=== PATIENT | female | born 1975 | race American Indian/Alaskan Native ===

== ENCOUNTER 2016-10-23 17:25 | Inpatient (IN) | payer MEDICARE, MEDICAID ==
[2016-10-23] MEDS ORDERED: Piperacillin/Tazobactam 3.375 GM in Sodium Chloride 0.9% 100 ML IV SCH (18:45)
[2016-10-23] MEDS ORDERED: Promethazine 25 MG/ML SDV IM PRN (18:47)
[2016-10-23] MEDS ORDERED: Polyethylene Glycol 3350 Powder 17 GM Packet PO PRN (18:47)
[2016-10-23] MEDS ORDERED: Acetaminophen 325 MG Tab PO PRN (18:47)
[2016-10-23] MEDS ORDERED: Ondansetron 4 MG/2 ML SDV IVPUSH PRN (18:47)
[2016-10-23] MEDS ORDERED: Zolpidem 5 MG Tab PO PRN (18:47)
--- NOTE | 2016-10-23 19:06 | PCM.HP ---
H&P History of Present Illness - General Date of Service: 10/23/16 Admit Problem/Dx: Admission Diagnosis/Problem Admission Diagnosis/Problem Infection of skin Source of Information: Patient History Limitations: Reports: No limitations - History of Present Illness Initial Comments - Free Text/Narative: 41-year-old female with radical history of end-stage renal disease on they'll assist, diabetes mellitus type 1, standing hyperparathyroidism, hypertension, hepatitis C presented from the clinic for periorbital infection started 7 days ago and getting worse despite starting Keflex and Bactrim 2 days ago. Patient admits having chills but denies fever, nausea, vomiting, chest pain, shortness breath, diarrhea, or any other symptoms. Patient stated that 7 days ago, she felt a bump on her left lower eye lid and thinks it is a style - next day she had similar symptoms in the right eye and started having bilateral pus drainage This is the first time to have such symptoms and to address them. She has a remote history of skin MRSA. patient denies change in her vision or eyeball pain. She had hemodialysis done today. She had blood work done today at all to clinic. Her WBC was 9.10. hemoglobin 10.6. Patient has history of chronic anemia - Related Data Allergies/Adverse Reactions: Allergies Allergy/AdvReac Type Severity Reaction Status Date / Time codeine Allergy Mild Stomach Uncoded 10/23/16 18:23 Upset Home Medications: Home Meds Calcium Acetate [Phoslo] 3 cap PO TIDM 12/01/13 [History] LORazepam [Ativan] 0.5 mg PO BID PRN 12/01/13 [History] Ca Cmb No.1/Vit D3/B-6/FA/B12 [Vitamin D3 1,000 Unit] 1,000 unit PO DAILY [History] Calcium Carbonate [Calcium] 1,000 mg PO ACDIN 05/02/14 [History] Carvedilol 12.5 mg PO DAILY 05/02/14 [History] Gabapentin [Neurontin] 300 mg PO DAILY 05/02/14 [History] Insulin Glarg,Human.Rec.Analog [Lantus] 3 units SUBCUT BEDTIME 05/02/14 [History ] Sertraline [Zoloft] 100 mg PO BEDTIME 05/02/14 [History] amLODIPine [Norvasc] 5 mg PO DAILY 05/02/14 [History] hydrOXYzine HCl [Atarax] 25 mg PO TID PRN 05/02/14 [History] oxyCODONE HCl [Oxycodone HCl] 10 mg PO Q6HR PRN 05/02/14 [History] Insulin Lispro [HumaLOG] 1 unit SQ TIDAC 08/21/15 [History] Pantoprazole [Protonix] 40 mg PO DAILY 08/21/15 [History] Sodium Polystyrene Sulfonate [Kayexalate] 30 ml PO ASDIRECTED PRN 08/21/15 [ History] Past Medical History Cardiovascular History: Reports: High cholesterol, Hypertension Gastrointestinal History: Reports: Other (see below) Other Gastrointestinal History: Hx C.diff in 2015 Genitourinary History: Reports: Dialysis Musculoskeletal History: Reports: Amputation Other Musculoskeletal History: Amputation below right elbow, and below left knee. Psychiatric History: Reports: Anxiety Endocrine/Metabolic History: Reports: Diabetes, type II Hematologic History: Reports: Anemia - Infectious Disease History Infectious Disease History: Reports: C-difficile - Past Surgical History HEENT Surgical History: Reports: Eye surgery GI Surgical History: Reports: Cholecystectomy Musculoskeletal Surgical History: Reports: Amputation Social & Family History - Family History Family Medical History: Noncontributory HEENT: Reports: Cataract Cardiac: Reports: High cholesterol, Hypertension, MD Respiratory: Reports: Asthma GI: Reports: GERD : Reports: Dialysis, Renal disease/insufficiency Neurological: Reports: Seizure Endocrine/Metabolic: Reports: Diabetes, type I, Diabetes, type II - Tobacco Use Smoking Status *Q: Former Smoker Years of Tobacco use: 6 Packs/Tins Daily: 3 Second Hand Smoke Exposure: No - Caffeine Use Caffeine Use: Reports: Coffee, Energy drinks, Soda, Tea - Alcohol Use Days Per Week of Alcohol Use: 0 - Recreational Drug Use Recreational Drug Use: No - Living Situation & Occupation Living situation: Reports: single, with family Occupation: disabled H&P Review of Systems - Review of Systems: Review Of Systems: See Below Free Text/Narrative: 10 point review of systems is otherwise negative except as mentioned above Exam - Exam Exam: See Below - Vital Signs Weight: 81.647 kg - Exam General: alert, oriented, cooperative. No: mild distress, moderate distress, severe distress, sedated, lethargic, obtunded HEENT: EOMI, Mucosa moist & pink, Nares patent, Normal nasal septum, Posterior pharynx clear, Pupils equal, Pupils reactive, TMs clear, Other (patient has some periorbital swelling bilaterally. There is plus on the left lower eyelid), PERRLA Neck: supple, trachea midline Lungs: Clear to auscultation, Normal respiratory effort Cardiovascular: regular rate, regular rhythm Abdomen: normal bowel sounds, soft. No: peritoneal signs (Female) Exam: Deferred Rectal (Female) Exam: Deferred Back Exam: normal inspection, full range of motion Extremities: other (she has amputated extremities). No: clubbing, cyanosis, calf tenderness Skin: warm, dry Neurological: cranial nerves intact, reflexes equal bilateral Neuro Extensive - Mental Status: alert, oriented x3, normal mood/affect Neuro Extensive - Motor, Sensory, Reflexes: CN II-XII intact, normal gait, normal reflexes Psychiatric: alert, normal affect, normal mood *Q Meaningful Use (ADM) - VTE *Q VTE Criteria *Q: - Stroke *Q Stroke Criteria *Q: - AMI *Q AMI Criteria *Q: - Problem List (1) Facial infection SNOMED Code(s): 258385635 ICD Code: L08.9 - LOCAL INFECTION OF THE SKIN AND SUBCUTANEOUS TISSUE, UNSP Status: Acute Current Visit: Yes (2) End stage renal failure on dialysis SNOMED Code(s): 341025439 ICD Code: N18.6 - END STAGE RENAL DISEASE; Z99.2 - DEPENDENCE ON RENAL DIALYSIS Status: Acute Current Visit: No Problem List Initiated/Reviewed/Updated: Yes Orders Last 24hrs: Active Orders 24 hr Category Date Time Status Patient Status [ADT] Routine ADT 10/23/16 18:47 Ordered Height and Weight [RC] DAILY Care 10/23/16 18:47 Ordered Intake and Output [RC] QSHIFT Care 10/23/16 18:52 Ordered Oxygen Therapy [RC] PRN Care 10/23/16 18:47 Ordered Peripheral IV Care [RC] . DIRECTED Care 10/23/16 18:54 Ordered Up ad Katerin [RC] ASDIRECTED Care 10/23/16 18:47 Ordered VTE/DVT Education [RC] PER UNIT ROUTINE Care 10/23/16 18:47 Ordered Vital Signs [RC] Q4H Care 10/23/16 18:47 Ordered Consult to Pharmacy [CONS] Routine Cons 10/23/16 18:42 Active Consistent Carbohydrate Diet [DIET] Diet 10/23/16 Breakfast Ordered Fluid Restriction [DIET] Diet 10/23/16 Breakfast Ordered Sodium Restricted Diet [DIET] Diet 10/23/16 Breakfast Ordered Acetaminophen [Tylenol] Med 10/23/16 18:47 Ordered 650 mg PO Q4H PRN Acetaminophen/HYDROcodone [[place] 325-10 MG] Med 10/23/16 18:47 Ordered 1 tab PO Q4H PRN Heparin Sodium Med 10/23/16 22:00 Ordered 5,000 units SUBCUT Q8HR Morphine Med 10/23/16 18:47 Ordered 1 mg IVPUSH Q2H PRN Ondansetron [Zofran] Med 10/23/16 18:47 Ordered 4 mg IVPUSH Q4H PRN Piperacillin/Tazobactam [Zosyn] 3.375 gm Med 10/23/16 18:45 Ordered Sodium Chloride 0.9% [Normal Saline] 100 ml IV Q8H Polyethylene Glycol 3350 [MiraLAX] Med 10/23/16 18:47 Ordered 17 gm PO DAILY PRN Promethazine [Phenergan] Med 10/23/16 18:47 Ordered 6.25 mg IM Q6H PRN Sodium Chloride 0.9% [Saline Flush] Med 10/23/16 18:47 Ordered 10 ml FLUSH ASDIRECTED PRN Vancomycin [Vancocin] 1 gm Med 10/23/16 18:42 Ordered Sodium Chloride 0.9% [Normal Saline] 250 ml IV ONETIME Zolpidem [Ambien] Med 10/23/16 18:47 Ordered 5 mg PO BEDTIME PRN Peripheral IV Insertion Adult [OM.PC] Routine Oth 10/23/16 18:47 Ordered Saline Lock Insert [OM.PC] Routine Oth 10/23/16 18:47 Ordered Resuscitation Status Routine Resus Stat 10/23/16 18:47 Ordered Medication Orders Piperacillin Sod/Tazobactam (Sod 3.375 gm/ Sodium Chloride) 100 mls @ 200 mls/ hr IV Q8H EH Vancomycin HCl 1 gm/ Sodium (Chloride) 250 mls @ 167 mls/hr IV ONETIME ONE Stop: 10/23/16 20:11 Assessment/Plan Comment:: periorbital infection Patient failed outpatient oral antibiotic Gram stain with culture was obtained in the clinic. The Gram stain showed staph aureus We'll start him on question to cover possible MRSA end dosing to cover other possible bacteria is End-stage renal disease on hemodialysis She had hemodialysis done today. She is due for hemodialysis on next Thursday Diabetes mellitus type 1 home insulin Sliding scale insulin hypertension Home medications to be restarted
[2016-10-23] MEDS ORDERED: Sodium Polystyrene Sulfonate 15 GM/60 ML Susp 60 ML Bot PO PRN (19:12)
[2016-10-23] MEDS ORDERED: hydrOXYzine HCl 25 MG Tab PO PRN (19:12)
[2016-10-23] MEDS ORDERED: Non-Formulary Medication 1 Each (Calcium Carbonate [Calcium] 1,000 MG) PO SCH (19:15)
[2016-10-23] MEDS: Morphine 2 MG/ML Syringe IVPUSH PRN (20:43)
[2016-10-23] MEDS: Sodium Chloride 0.9% 10 ML Syringe FLUSH PRN (20:43)
[2016-10-23] MEDS ORDERED: INSULIN GLARGINE SUBCUT SCH (21:00)
[2016-10-23] MEDS ORDERED: [UNRECOGNIZED DRUG - OTHER] SUBCUT SCH (21:00)
[2016-10-23] MEDS ORDERED: Insulin Aspart 100 Units/ML 3 ML Pen SUBCUT SCH (21:00)
[2016-10-23] MEDS ORDERED: amLODIPine 5 MG Tab PO SCH (21:00)
[2016-10-23] MEDS: Sertraline 50 MG Tab PO SCH (21:36)
[2016-10-23] MEDS: Carvedilol 6.25 MG Tab PO SCH (21:37)
[2016-10-23] MEDS: Gabapentin 300 MG Cap PO SCH (21:38)
[2016-10-23] MEDS: Insulin Detemir 100 Units/ML 3 ML Pen SUBCUT SCH (21:42)
[2016-10-23] MEDS: Insulin Aspart 100 Units/ML 3 ML Pen SUBCUT SCH (21:44)
[2016-10-23] MEDS: Heparin Sodium 5,000 Units/ML Vial SUBCUT SCH (21:45)
[2016-10-23] MEDS: oxyCODONE 5 MG Tab PO PRN (22:11)
[2016-10-23] MEDS: LORazepam 0.5 MG Tab PO PRN (22:12)
[2016-10-24] MEDS: Piperacillin/Tazobactam 2.25 GM in Sodium Chloride 0.9% 50 ML IV SCH ×2 (00:03→08:31)
[2016-10-24] MEDS: Morphine 2 MG/ML Syringe IVPUSH PRN ×5 (00:04→14:16)
[2016-10-24] MEDS: Heparin Sodium 5,000 Units/ML Vial SUBCUT SCH ×3 (06:10→21:59)
[2016-10-24] MEDS: Pantoprazole 40 MG Tab.CR PO SCH (06:10)
[2016-10-24] MEDS ORDERED: INSULIN LISPRO 1 UNIT SQ SCH (08:00)
[2016-10-24] MEDS: Insulin Aspart 100 Units/ML 3 ML Pen SUBCUT SCH ×4 (08:06→22:04)
[2016-10-24] MEDS: Calcium Carbonate 500 MG Tab.Chew PO SCH ×3 (08:30→17:12)
[2016-10-24] MEDS ORDERED: Sodium Polystyrene Sulfonate 15 GM/60 ML Susp 60 ML Bot PO PRN (08:31)
[2016-10-24] MEDS ORDERED: amLODIPine 5 MG Tab PO SCH ×3 (09:00→09:36)
[2016-10-24] MEDS ORDERED: Gabapentin 300 MG Cap PO SCH (09:00)
[2016-10-24] MEDS ORDERED: [UNRECOGNIZED DRUG - REMARK] PO SCH (09:00)
[2016-10-24] MEDS ORDERED: cloNIDine 0.1 MG Tab PO ONE (09:36)
--- NOTE | 2016-10-24 10:28 | PCM.PN ---
- General Info Date of Service: 10/24/16 Admission Dx/Problem (Free Text): Admission Diagnosis/Problem Admission Diagnosis/Problem Infection of skin Subjective Update: patient states that the pressure pain between her eyes improved. She is still having lots of drainage mostly on left side eye this morning. she denies change in vision, eyeball pain, fever, chills, nausea, vomiting, chest pain, shortness breath, abdominal pain, diarrhea, urinary symptoms, or any other symptoms. - Patient Data Vitals - most recent: Last Vital Signs Temp 36.0 C 10/24/16 07:00 Pulse 65 10/24/16 07:00 Resp 18 10/24/16 07:00 BP 128/63 10/24/16 07:00 Pulse Ox 100 10/24/16 07:00 Weight - most recent: 84.368 kg I&O - last 24 hours: Intake & Output 10/23/16 10/24/16 10/24/16 22:59 06:59 14:59 Intake Total 100 440 Balance 100 440 Lab Results last 24 hrs: Laboratory Results - last 24 hr 10/23/16 10/23/16 10/24/16 Range/Units 19:06 21:09 06:00 WBC 6.3 (5.0-10.0) 10^3/uL RBC 3.12 L (4.2-5.4) 10^6/uL Hgb 9.7 L (12.0-16.0) g/dL Hct 31.8 L (37.0-47.0) % MCV 101.9 H (80-100) fL MCH 31.1 (27.0-34.0) pg MCHC 30.5 L (33.0-35.0) g/dL Plt Count 223 (150-450) 10^3/uL Neut % (Auto) 84.8 H (42.2-75.2) % Lymph % (Auto) 7.3 L (20.5-50.1) % Bryan % (Auto) 5.6 (2-8) % Eos % (Auto) 1.8 (1.0-3.0) % Baso % (Auto) 0.5 (0.0-1.0) % POC Glucose 191 H 190 H (70-105) mg/dl 10/24/16 Range/Units 07:20 WBC (5.0-10.0) 10^3/uL RBC (4.2-5.4) 10^6/uL Hgb (12.0-16.0) g/dL Hct (37.0-47.0) % MCV (80-100) fL MCH (27.0-34.0) pg MCHC (33.0-35.0) g/dL Plt Count (150-450) 10^3/uL Neut % (Auto) (42.2-75.2) % Lymph % (Auto) (20.5-50.1) % Bryan % (Auto) (2-8) % Eos % (Auto) (1.0-3.0) % Baso % (Auto) (0.0-1.0) % POC Glucose 118 H (70-105) mg/dl Med Orders - Current: Current Medications Acetaminophen (Tylenol) 650 mg PO Q4H PRN PRN Reason: Pain (Mild 1-3)/fever Hydrocodone Bitart/Acetaminophen ([place] 325-10 Mg) 1 tab PO Q4H PRN PRN Reason: Pain (moderate 4-6) Amlodipine Besylate (Norvasc) 10 mg PO BEDTIME [facility] Calcium Carbonate/Glycine (Tums) 1,000 mg PO TIDMEALS [facility] Last Admin: 10/24/16 08:30 Dose: 1,000 mg Carvedilol (Coreg) 12.5 mg PO BEDTIME [facility] Last Admin: 10/23/16 21:37 Dose: 12.5 mg Gabapentin (Neurontin) 300 mg PO BEDTIME [facility] Last Admin: 10/23/16 21:38 Dose: 300 mg Heparin Sodium (Porcine) (Heparin Sodium) 5,000 units SUBCUT Q8HR [facility] Last Admin: 10/24/16 06:10 Dose: 5,000 units Hydroxyzine HCl (Atarax) 25 mg PO TID PRN PRN Reason: Anxiety Piperacillin Sod/Tazobactam (Sod 2.25 gm/ Sodium Chloride) 50 mls @ 100 mls/hr IV Q8H [facility] Last Admin: 10/24/16 08:31 Dose: 100 mls/hr Insulin Aspart (Novolog) 0 unit SUBCUT QIDACANDBED [facility] PRN Reason: Protocol Last Admin: 10/24/16 08:06 Dose: Not Given Insulin Detemir (Levemir) 0 unit SUBCUT BEDTIME [facility] Last Admin: 10/23/16 21:42 Dose: 3 units Lorazepam (Ativan) 0.5 mg PO BID PRN PRN Reason: Anxiety Last Admin: 10/23/16 22:12 Dose: 0.5 mg Morphine Sulfate (Morphine) 1 mg IVPUSH Q2H PRN PRN Reason: Pain (severe 7-10) Last Admin: 10/24/16 08:31 Dose: 1 mg Non-Formulary Medication (Ca Cmb No.1/Vit D3/B-6/Fa/B12 [Vitamin D3 1,000 Unit] ) 1,000 unit PO DAILY [facility] Non-Formulary Medication (Calcium Acetate [Phoslo]) 3 cap PO TIDM [facility] Ondansetron HCl (Zofran) 4 mg IVPUSH Q4H PRN PRN Reason: Nausea/Vomiting Last Admin: 10/23/16 20:43 Dose: 4 mg Oxycodone HCl (Oxycodone) 10 mg PO Q6HR PRN PRN Reason: Pain Last Admin: 10/23/16 22:11 Dose: 10 mg Pantoprazole Sodium (Protonix) 40 mg PO ACBREAKFAST [facility] Last Admin: 10/24/16 06:10 Dose: 40 mg Polyethylene Glycol (Miralax) 17 gm PO DAILY PRN PRN Reason: Constipation Promethazine HCl (Phenergan) 6.25 mg IM Q6H PRN PRN Reason: Nausea/Vomiting Sertraline HCl (Zoloft) 100 mg PO BEDTIME [facility] Last Admin: 10/23/16 21:36 Dose: 100 mg Sodium Chloride (Saline Flush) 10 ml FLUSH ASDIRECTED PRN PRN Reason: Keep Vein Open Last Admin: 10/23/16 20:43 Dose: 10 ml Sodium Polystyrene Sulfonate (Kayexalate) 15 gm PO ASDIRECTED PRN PRN Reason: elevated potassium more than 6 Zolpidem Tartrate (Ambien) 5 mg PO BEDTIME PRN PRN Reason: Sleep Discontinued Medications Amlodipine Besylate (Norvasc) 5 mg PO DAILY [facility] Amlodipine Besylate (Norvasc) 5 mg PO BEDTIME [facility] Last Admin: 10/23/16 21:39 Dose: 5 mg Amlodipine Besylate (Norvasc) 5 mg PO DAILY [facility] Clonidine HCl (Catapres) 0.1 mg PO ONETIME ONE Stop: 10/24/16 09:37 Gabapentin (Neurontin) 300 mg PO DAILY [facility] Vancomycin HCl 1 gm/ Sodium (Chloride) 250 mls @ 167 mls/hr IV ONETIME ONE Stop: 10/23/16 21:29 Last Admin: 10/23/16 20:51 Dose: 75 mls/hr Insulin Aspart (Novolog) 1 unit SUBCUT QIDACANDBED [facility] PRN Reason: Protocol Non-Formulary Medication (Calcium Carbonate [Calcium]) 1,000 mg PO ACDIN [facility] Last Admin: 10/24/16 04:17 Dose: Not Given Non-Formulary Medication (Insulin Glarg,Human.Rec.Analog) 3 units SUBCUT BEDTIME [facility] Non-Formulary Medication (Insulin Lispro [Humalog]) 1 unit SQ TIDAC [facility] Sodium Polystyrene Sulfonate (Kayexalate) gm PO ASDIRECTED PRN PRN Reason: elevated potassium - Exam General: alert, oriented, cooperative. No: no acute distress, sedated, lethargic, obtunded HEENT: Pupils equal, Pupils reactive, EOMI, Mucous membr. moist/pink, Other ( still having eyelid swelling and pus bilaterally. She has mild periorbital swelling bilaterally which slightly improved from yesterday) Neck: supple, trachea midline, no JVD Lungs: Clear to auscultation, Normal respiratory effort Cardiovascular: Regular Rate, Regular Rhythm Abdomen: bowel sounds present, soft, no tenderness, no distension Extremities: no edema, normal pulses Psy/Mental Status: alert, normal affect, normal mood - Problem List & Annotations (1) Facial infection SNOMED Code(s): 111116964 Code(s): L08.9 - LOCAL INFECTION OF THE SKIN AND SUBCUTANEOUS TISSUE, UNSP Status: Acute Current Visit: Yes (2) End stage renal failure on dialysis SNOMED Code(s): 522974342 Code(s): N18.6 - END STAGE RENAL DISEASE; Z99.2 - DEPENDENCE ON RENAL DIALYSIS Status: Acute Current Visit: No - Problem List Review Problem List Initiated/Reviewed/Updated: Yes - My Orders Last 24 Hours: My Active Orders 10/23/16 18:42 Consult to Pharmacy [CONS] Routine 10/23/16 18:47 Patient Status [ADT] Routine Height and Weight [RC] DAILY Oxygen Therapy [RC] PRN Up ad Katerin [RC] ASDIRECTED VTE/DVT Education [RC] PER UNIT ROUTINE Vital Signs [RC] 07,11,15,19,23,03 Acetaminophen [Tylenol] 650 mg PO Q4H PRN Acetaminophen/HYDROcodone [[place] 325-10 MG] 1 tab PO Q4H PRN Morphine 1 mg IVPUSH Q2H PRN Ondansetron [Zofran] 4 mg IVPUSH Q4H PRN Polyethylene Glycol 3350 [MiraLAX] 17 gm PO DAILY PRN Promethazine [Phenergan] 6.25 mg IM Q6H PRN Sodium Chloride 0.9% [Saline Flush] 10 ml FLUSH ASDIRECTED PRN Zolpidem [Ambien] 5 mg PO BEDTIME PRN Peripheral IV Insertion Adult [OM.PC] Routine Saline Lock Insert [OM.PC] Routine Resuscitation Status Routine 10/23/16 18:52 Intake and Output [RC] QSHIFT 10/23/16 18:54 Peripheral IV Care [RC] 10/23/16 19:12 LORazepam [Ativan] 0.5 mg PO BID PRN hydrOXYzine HCl [Atarax] 25 mg PO TID PRN oxyCODONE 10 mg PO Q6HR PRN 10/23/16 19:13 Blood Glucose Check, Bedside [RC] QIDACANDBED 10/23/16 19:15 Calcium Acetate [Phoslo] 3 cap PO TIDM 10/23/16 21:00 Carvedilol [Coreg] 12.5 mg PO BEDTIME Gabapentin [Neurontin] 300 mg PO BEDTIME Insulin Aspart [NovoLOG] See Protocol SUBCUT QIDACANDBED Insulin Detemir [Levemir] 0 unit SUBCUT BEDTIME Sertraline [Zoloft] 100 mg PO BEDTIME 10/23/16 22:00 Heparin Sodium 5,000 units SUBCUT Q8HR 10/24/16 00:00 Piperacillin/Tazobactam [Zosyn] 2.25 gm Sodium Chloride 0.9% [Normal Saline] 50 ml IV Q8H 10/24/16 06:00 Pantoprazole [ProTONIX] 40 mg PO ACBREAKFAST 10/24/16 08:00 Calcium Carbonate [Tums] 1,000 mg PO TIDMEALS 10/24/16 08:31 Sodium Polystyrene Sulfonate [Kayexalate] 15 gm PO ASDIRECTED PRN 10/24/16 09:00 Ca Cmb No.1/Vit D3/B-6/FA/B12 [Vitamin D3 1,000 Unit] 1,000 unit PO DAILY 10/24/16 09:36 amLODIPine [Norvasc] 10 mg PO BEDTIME 10/25/16 05:11 BASIC METABOLIC PANEL,BMP [CHEM] AM CBC WITH AUTO DIFF [HEME] AM - Plan Plan:: periorbital infection Patient failed outpatient oral antibiotic Gram stain with culture was obtained in the clinic and shows MRSA she was started on Zosyn and vancomycin on admission. I counseled with Dr. Geronimo, infectious disease from [facility] in [place]. he recommended continuing on vancomycin until further clinical improvement. He expected to treat with vancomycin after dialysis for 1 week, then continue for another week with Bactrim. Dr. Geronimo will arrange vancomycin dosing after dialysis. he will see her by telemetry medicine on upcoming Thursday. I appreciate his assistance End-stage renal disease on hemodialysis She had hemodialysis done today. She is due for hemodialysis tomorrow Diabetes mellitus type 1 home insulin Sliding scale insulin hypertension Home medications to be restarted
[2016-10-24] MEDS: Acetaminophen/HYDROcodone 325-10 MG Tab PO PRN ×2 (11:14→17:13)
[2016-10-24] MEDS: CALCIUM ACETATE 667 MG PO SCH ×2 (11:19→17:12)
[2016-10-24] MEDS: Carvedilol 6.25 MG Tab PO SCH (20:40)
[2016-10-24] MEDS: Gabapentin 300 MG Cap PO SCH (20:43)
[2016-10-24] MEDS: Sertraline 50 MG Tab PO SCH (20:43)
[2016-10-24] MEDS: LORazepam 0.5 MG Tab PO PRN (20:54)
[2016-10-24] MEDS: oxyCODONE 5 MG Tab PO PRN (20:55)
[2016-10-24] MEDS: Insulin Detemir 100 Units/ML 3 ML Pen SUBCUT SCH (20:59)
[2016-10-24] MEDS: Sodium Chloride 0.9% 10 ML Syringe FLUSH PRN (22:12)
[2016-10-25] MEDS: Pantoprazole 40 MG Tab.CR PO SCH (05:54)
[2016-10-25] MEDS: Heparin Sodium 5,000 Units/ML Vial SUBCUT SCH (05:57)
[2016-10-25] MEDS: Sodium Chloride 0.9% 10 ML Syringe FLUSH PRN ×2 (06:06→06:10)
[2016-10-25] MEDS: Morphine 2 MG/ML Syringe IVPUSH PRN (06:07)
--- NOTE | 2016-10-25 07:05 | PCM.DCSUM1 ---
Discharge Summary - Hospital Course Free Text/Narrative:: Pt today feels better and no chest pain, No nausea or Vomiting, still has drainage from left eye and her left eye lids were stuck together. She will be going home today and have dialysis at [facility]. Will have another dose of IV Abx today and will be seen Via Telemedicine on Thursday by ID. ROSALES Initial Comments: MS. Killian is 41-year-old female with Medical history of end-stage renal disease ( on TTS) , diabetes mellitus type 1, Secondary hyperparathyroidism, hypertension, Anemia of CKD, hepatitis C presented from the clinic for periorbital infection started 7 days ago and getting worse despite starting Keflex and Bactrim 2 days ago. Patient admits having chills but denies fever, nausea, vomiting, chest pain, shortness breath, diarrhea, or any other symptoms. Patient on admission stated that 7 days ago, she felt a bump on her left lower eye lid and thinks it is a style - next day she had similar symptoms in the right eye and started having bilateral pus drainage This is the first time to have such symptoms and to address them. She has a remote history of skin MRSA. patient denies change in her vision or eyeball pain. She had hemodialysis done on 10/23/16 .on admissionHer WBC was 9.10. hemoglobin 10.6. - Discharge Data Discharge Date: 10/25/16 Discharge Disposition: Home, Self-Care 01 Condition: Good - Discharge Diagnosis/Problem(s) (1) Facial infection SNOMED Code(s): 637172883 ICD Code: L08.9 - LOCAL INFECTION OF THE SKIN AND SUBCUTANEOUS TISSUE, UNSP Status: Acute Current Visit: Yes (2) Hyperkalemia SNOMED Code(s): 91352234 ICD Code: E87.5 - HYPERKALEMIA Status: Acute Current Visit: Yes (3) End stage renal disease on dialysis SNOMED Code(s): 753871427 ICD Code: N18.6 - END STAGE RENAL DISEASE; Z99.2 - DEPENDENCE ON RENAL DIALYSIS Status: Acute Current Visit: No - Patient Summary/Data Consults: Consultations 10/23/16 18:42 Consult to Pharmacy [CONS] Routine Recommended Follow-up Testing/Procedures: Pt will have follow up with Infectious Disease on Thursday ( 10/27/16) Via Telemedicine at [facility] Course: Pt was admitted with Wolf-orbital infection and Infectious disease was consulted. Recommended IV Vancomycin and after the discharge will follow with ID Via Telemedicine on Thursday ( 10/27/16) for futher course of antibiotics. She had no fever and did well, still has significant Dischsrge from her left eye. - Patient Instructions Diet: Diabetic Diet, Renal Diet Activity: As Tolerated Showering/Bathing: May Shower Notify Provider of: Fever, Increased Pain, Swelling and Redness, Drainage Other/Special Instructions: Pt is advised to follow up with Infectious Disease on Thursday ( 10/27/16) Via Telemedicine at [facility] at [place]. She is also advise to follow with PMD in a week time. Advise to come to ED for fever, chill, vision change or headache. - Discharge Plan Home Medications: Home Meds Calcium Acetate [Phoslo] 3 cap PO TIDM 12/01/13 [History] LORazepam [Ativan] 0.5 mg PO BID PRN 12/01/13 [History] Ca Cmb No.1/Vit D3/B-6/FA/B12 [Vitamin D3 1,000 Unit] 1,000 unit PO DAILY [History] Calcium Carbonate [Calcium] 1,000 mg PO TIDMEALS 05/02/14 [History] Carvedilol 12.5 mg PO DAILY 05/02/14 [History] Gabapentin [Neurontin] 300 mg PO DAILY 05/02/14 [History] Insulin Glarg,Human.Rec.Analog [Lantus] 3 units SUBCUT BEDTIME 05/02/14 [History ] Sertraline [Zoloft] 100 mg PO BEDTIME 05/02/14 [History] amLODIPine [Norvasc] 5 mg PO DAILY 05/02/14 [History] hydrOXYzine HCl [Atarax] 25 mg PO TID PRN 05/02/14 [History] oxyCODONE HCl [Oxycodone HCl] 10 mg PO Q6HR PRN 05/02/14 [History] Insulin Lispro [HumaLOG] 1 unit SQ TIDAC 08/21/15 [History] Pantoprazole [Protonix] 40 mg PO DAILY 08/21/15 [History] Sodium Polystyrene Sulfonate [Kayexalate] 30 ml PO ASDIRECTED PRN 08/21/15 [ History] - Discharge Summary/Plan Comment DC Time >30 min.: Yes - General Info Date of Service: 10/25/16 Admission Dx/Problem (Free Text: Admission Diagnosis/Problem Admission Diagnosis/Problem Infection of facial skin and wolf-orbital Infection Subjective Update: patient states that the pressure pain between her eyes improved. She is still having lots of drainage mostly on left side eye this morning. she denies change in vision, eye pain, fever, chills, nausea, vomiting, chest pain, shortness breath, abdominal pain, diarrhea, urinary symptoms, or any other symptoms. Functional Status: Reports: pain controlled, tolerating diet, urinating - Review of Systems General: Reports: Appetite (good). Denies: Fever, Malaise, Chills HEENT: Reports: other (left eye discharge and eye lids stuck together in AM). Denies: eye pain, headaches, sinus congestion, sore throat Pulmonary: Denies: shortness of breath, cough, sputum, hemoptysis, wheezing Cardiovascular: Denies: Chest Pain, Palpitations, Lightheadedness Gastrointestinal: Denies: Abdominal pain, Diarrhea, Difficulty swallowing, Nausea, Vomiting Genitourinary: Denies: dysuria, frequency, burning Musculoskeletal: Denies: shoulder pain, arm pain, back pain, leg pain Skin: Denies: cyanosis, jaundice Neurological: Reports: No Symptoms Psychiatric: Reports: no symptoms - Patient Data Vitals - Most Recent: Last Vital Signs Temp 36.6 C 10/24/16 23:00 Pulse 72 10/24/16 23:00 Resp 20 10/24/16 23:00 BP 133/71 10/24/16 23:00 Pulse Ox 100 10/24/16 23:00 Weight - Most Recent: 86.092 kg I&O - Last 24 hours: Intake & Output 10/24/16 10/25/16 10/25/16 22:59 06:59 14:59 Intake Total 880 Balance 880 Lab Results - Last 24 hrs: Laboratory Results - last 24 hr 10/24/16 10/24/16 10/24/16 Range/Units 07:20 10:48 17:09 WBC (5.0-10.0) 10^3/uL RBC (4.2-5.4) 10^6/uL Hgb (12.0-16.0) g/dL Hct (37.0-47.0) % MCV (80-100) fL MCH (27.0-34.0) pg MCHC (33.0-35.0) g/dL Plt Count (150-450) 10^3/uL Neut % (Auto) (42.2-75.2) % Lymph % (Auto) (20.5-50.1) % [place] % (Auto) (2-8) % Eos % (Auto) (1.0-3.0) % Baso % (Auto) (0.0-1.0) % Add Manual Diff Neutrophils % (Manual) % Lymphocytes % (Manual) % Monocytes % (Manual) % Eosinophils % (Manual) % Nucleated RBCs /100WBC Sodium (135-145) mmol/L Potassium (3.6-5.0) mmol/L Chloride (101-111) mmol/L Carbon Dioxide (21.0-31.0) mmol/L Anion Gap BUN (7-18) mg/dL Creatinine (0.6-1.3) mg/dL Est Cr Clr Drug Dosing mL/min Estimated GFR (MDRD) Glucose (74-105) mg/dL POC Glucose 118 H 110 H 141 H (70-105) mg/dl Calcium (8.4-10.2) mg/dl 10/24/16 10/25/16 10/25/16 Range/Units 20:47 06:10 06:10 WBC 4.8 L (5.0-10.0) 10^3/uL RBC 3.09 L (4.2-5.4) 10^6/uL Hgb 9.6 L (12.0-16.0) g/dL Hct 32.0 L (37.0-47.0) % MCV 103.6 H (80-100) fL MCH 31.1 (27.0-34.0) pg MCHC 30.0 L (33.0-35.0) g/dL Plt Count 222 (150-450) 10^3/uL Neut % (Auto) 72.2 (42.2-75.2) % Lymph % (Auto) 11.3 L (20.5-50.1) % [place] % (Auto) 8.4 H (2-8) % Eos % (Auto) 7.5 H (1.0-3.0) % Baso % (Auto) 0.6 (0.0-1.0) % Add Manual Diff Yes Neutrophils % (Manual) 74 % Lymphocytes % (Manual) 18 % Monocytes % (Manual) 3 % Eosinophils % (Manual) 5 % Nucleated RBCs 1 /100WBC Sodium 133 L (135-145) mmol/L Potassium 5.6 H (3.6-5.0) mmol/L Chloride 97 L (101-111) mmol/L Carbon Dioxide 26.0 (21.0-31.0) mmol/L Anion Gap 15.6 BUN 58 H (7-18) mg/dL Creatinine 7.1 H (0.6-1.3) mg/dL Est Cr Clr Drug Dosing 8.82 mL/min Estimated GFR (MDRD) 6 Glucose 85 (74-105) mg/dL POC Glucose 124 H (70-105) mg/dl Calcium 7.3 L (8.4-10.2) mg/dl Med Orders - Current: Current Medications Acetaminophen (Tylenol) 650 mg PO Q4H PRN PRN Reason: Pain (Mild 1-3)/fever Hydrocodone Bitart/Acetaminophen ([place] 325-10 Mg) 1 tab PO Q4H PRN PRN Reason: Pain (moderate 4-6) Last Admin: 10/24/16 17:13 Dose: 1 tab Amlodipine Besylate (Norvasc) 10 mg PO BEDTIME [facility] Last Admin: 10/24/16 20:42 Dose: 10 mg Calcium Carbonate/Glycine (Tums) 1,000 mg PO TIDMEALS [facility] Last Admin: 10/24/16 17:12 Dose: 1,000 mg Carvedilol (Coreg) 12.5 mg PO BEDTIME [facility] Last Admin: 10/24/16 20:40 Dose: 12.5 mg Gabapentin (Neurontin) 300 mg PO BEDTIME [facility] Last Admin: 10/24/16 20:43 Dose: 300 mg Heparin Sodium (Porcine) (Heparin Sodium) 5,000 units SUBCUT Q8HR [facility] Last Admin: 10/25/16 05:57 Dose: 5,000 units Hydroxyzine HCl (Atarax) 25 mg PO TID PRN PRN Reason: Anxiety Insulin Aspart (Novolog) 0 unit SUBCUT QIDACANDBED EH PRN Reason: Protocol Last Admin: 10/24/16 22:04 Dose: Not Given Insulin Detemir (Levemir) 0 unit SUBCUT BEDTIME [facility] Last Admin: 10/24/16 20:59 Dose: 3 units Lorazepam (Ativan) 0.5 mg PO BID PRN PRN Reason: Anxiety Last Admin: 10/24/16 20:54 Dose: 0.5 mg Morphine Sulfate (Morphine) 1 mg IVPUSH Q2H PRN PRN Reason: Pain (severe 7-10) Last Admin: 10/25/16 06:07 Dose: 1 mg Non-Formulary Medication (Ca Cmb No.1/Vit D3/B-6/Fa/B12 [Vitamin D3 1,000 Unit] ) 1,000 unit PO DAILY [facility] Ondansetron HCl (Zofran) 4 mg IVPUSH Q4H PRN PRN Reason: Nausea/Vomiting Last Admin: 10/23/16 20:43 Dose: 4 mg Oxycodone HCl (Oxycodone) 10 mg PO Q6HR PRN PRN Reason: Pain Last Admin: 10/24/16 20:55 Dose: 10 mg Pantoprazole Sodium (Protonix) 40 mg PO ACBREAKFAST [facility] Last Admin: 10/25/16 05:54 Dose: 40 mg Calcium Acetate 667mg [Phoslo] Pt 's Own Med 3 each PO TIDM [facility] Last Admin: 10/24/16 17:12 Dose: 3 each Polyethylene Glycol (Miralax) 17 gm PO DAILY PRN PRN Reason: Constipation Promethazine HCl (Phenergan) 6.25 mg IM Q6H PRN PRN Reason: Nausea/Vomiting Sertraline HCl (Zoloft) 100 mg PO BEDTIME [facility] Last Admin: 10/24/16 20:43 Dose: 100 mg Sodium Chloride (Saline Flush) 10 ml FLUSH ASDIRECTED PRN PRN Reason: Keep Vein Open Last Admin: 10/25/16 06:10 Dose: 10 ml Sodium Polystyrene Sulfonate (Kayexalate) 15 gm PO ASDIRECTED PRN PRN Reason: elevated potassium more than 6 Vancomycin HCl (Pharmacy To Dose - Vancomycin) 0 dose .XX ASDIRECTED [facility] Zolpidem Tartrate (Ambien) 5 mg PO BEDTIME PRN PRN Reason: Sleep Last Admin: 10/24/16 22:17 Dose: 5 mg Discontinued Medications Amlodipine Besylate (Norvasc) 5 mg PO DAILY [facility] Amlodipine Besylate (Norvasc) 5 mg PO BEDTIME [facility] Last Admin: 10/23/16 21:39 Dose: 5 mg Amlodipine Besylate (Norvasc) 5 mg PO DAILY [facility] Last Admin: 10/24/16 11:14 Dose: Not Given Clonidine HCl (Catapres) 0.1 mg PO ONETIME ONE Stop: 10/24/16 09:37 Last Admin: 10/24/16 11:16 Dose: 0.1 mg Gabapentin (Neurontin) 300 mg PO DAILY [facility] Vancomycin HCl 1 gm/ Sodium (Chloride) 250 mls @ 167 mls/hr IV ONETIME ONE Stop: 10/23/16 21:29 Last Admin: 10/23/16 20:51 Dose: 75 mls/hr Piperacillin Sod/Tazobactam (Sod 2.25 gm/ Sodium Chloride) 50 mls @ 100 mls/hr IV Q8H [facility] Last Admin: 10/24/16 08:31 Dose: 100 mls/hr Insulin Aspart (Novolog) 1 unit SUBCUT QIDACANDBED [facility] PRN Reason: Protocol Non-Formulary Medication (Calcium Carbonate [Calcium]) 1,000 mg PO ACDIN [facility] Last Admin: 10/24/16 04:17 Dose: Not Given Non-Formulary Medication (Insulin Glarg,Human.Rec.Analog) 3 units SUBCUT BEDTIME [facility] Non-Formulary Medication (Insulin Lispro [Humalog]) 1 unit SQ TIDAC [facility] Sodium Polystyrene Sulfonate (Kayexalate) gm PO ASDIRECTED PRN PRN Reason: elevated potassium - Exam Quality Assessment: Reports: DVT prophylaxis. Denies: supplemental oxygen, urine catheter General: Reports: alert, oriented, cooperative, no acute distress HEENT: Reports: Pupils equal, Mucous membr. moist/pink, Other (left eyes discharge with eye lids stuck together initially) Neck: Reports: supple, no JVD. Denies: lymphadenopathy, carotid bruit Lungs: Reports: Clear to auscultation, Normal respiratory effort. 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 Denies: no calf tenderness, edema Neurological: Reports: no new focal deficit, normal speech, normal tone Psy/Mental Status: Reports: alert, normal affect, normal mood *Q Meaningful Use (DIS) - VTE *Q VTE Criteria *Q: - Stroke *Q Stroke Criteria *Q: - AMI *Q AMI Criteria *Q:
[2016-10-25 07:54] VITALS: BP 123/58
[2016-10-25] MEDS: Insulin Aspart 100 Units/ML 3 ML Pen SUBCUT SCH (08:00)
[2016-10-25] MEDS: CALCIUM ACETATE 667 MG PO SCH (08:40)
[2016-10-25] MEDS: Calcium Carbonate 500 MG Tab.Chew PO SCH (08:40)
[2016-10-25] MEDS: LORazepam 0.5 MG Tab PO PRN (09:17)
[2016-10-25] MEDS: Acetaminophen/HYDROcodone 325-10 MG Tab PO PRN (09:17)
== END 2016-10-25 09:55 | disposition home or self-care (01) | DRG 124 ==
LOC: UNDOADMOB 17:25 → DL.MS 17:25 → UNDOADMOB 18:47 → OBSVTOIN 18:47
PROVIDERS: ADMIT Family Medicine; ATTEND Family Medicine
DX: H05.10 Unspecified chronic inflammatory disorders of orbit (principal); N18.6 End stage renal disease; I12.0 Hypertensive chronic kidney disease with stage 5 chronic kidney disease or end stage renal disease; N25.81 Secondary hyperparathyroidism of renal origin; B95.62 Methicillin resistant Staphylococcus aureus infection as the cause of diseases classified elsewhere; E10.22 Type 1 diabetes mellitus with diabetic chronic kidney disease; Z99.2 Dependence on renal dialysis; Z79.4 Long term (current) use of insulin; Z87.891 Personal history of nicotine dependence; B19.20 Unspecified viral hepatitis C without hepatic coma; D63.1 Anemia in chronic kidney disease; F41.9 Anxiety disorder, unspecified; Z86.14 Personal history of Methicillin resistant Staphylococcus aureus infection; Z88.5 Allergy status to narcotic agent; Z79.2 Long term (current) use of antibiotics; Z89.512 Acquired absence of left leg below knee; Z89.211 Acquired absence of right upper limb below elbow
CPT/HCPCS: 36415; 80048; 82962; 85025; A9270-GY; J1644; J1815-GY; J2270; J2405; J2543; J3370; J7050

== ENCOUNTER 2017-01-06 14:40 | Emergency (ER) | payer MEDICARE, MEDICAID ==
[2017-01-06 14:58] VITALS: BP 210/89
--- NOTE | 2017-01-06 15:19 | EDM.PDOC ---
ED HPI GENERAL MEDICAL PROBLEM - General Chief Complaint: Cardiovascular Problem Stated Complaint: HIGH BLOOD PRESSURE,COMING FROM DIALYSIS Time Seen by Provider: 01/06/17 15:10 Source of Information: Reports: Patient History Limitations: Reports: No Limitations - History of Present Illness INITIAL COMMENTS - FREE TEXT/NARRATIVE: This 41 yo female patient was sent to the ED from Dialysis due to high blood pressure and altered speech. Once the patient arrived in the ED, the patient reports she has a sore throat that started this morning. The patient reports her blood pressure has been running in the 180-200's systolic while at dialysis. The patient reports she has been very tired today and was falling asleep throughout her dialysis run. The patient reports no additional symptoms or complications at this time. The patient reports she takes most of her blood pressure medications with her evening meals. Onset: Today Duration: Constant Location: Reports: Neck Quality: Reports: Dull Severity: Moderate Worsens with: Reports: None Context: Reports: Other Associated Symptoms: Reports: Other Throat Pain Score (Numeric/FACES): 4 - Related Data Allergies Allergy/AdvReac Type Severity Reaction Status Date / Time codeine Allergy Mild Stomach Uncoded 01/06/17 14:52 Upset Home Meds: Home Meds Calcium Acetate [Phoslo] 3 cap PO TIDM 12/01/13 [History] LORazepam [Ativan] 0.5 mg PO BID PRN 12/01/13 [History] Ca Cmb No.1/Vit D3/B-6/FA/B12 [Vitamin D3 1,000 Unit] 1,000 unit PO DAILY [History] Calcium Carbonate [Calcium] 1,000 mg PO TIDMEALS 05/02/14 [History] Carvedilol 12.5 mg PO DAILY 05/02/14 [History] Gabapentin [Neurontin] 300 mg PO DAILY 05/02/14 [History] Insulin Glarg,Human.Rec.Analog [Lantus] 3 units SUBCUT BEDTIME 05/02/14 [History ] Sertraline [Zoloft] 100 mg PO BEDTIME 05/02/14 [History] amLODIPine [Norvasc] 5 mg PO DAILY 05/02/14 [History] hydrOXYzine HCl [Atarax] 25 mg PO TID PRN 05/02/14 [History] oxyCODONE HCl [Oxycodone HCl] 10 mg PO Q6HR PRN 05/02/14 [History] Insulin Lispro [HumaLOG] 1 unit SQ TIDAC 08/21/15 [History] Pantoprazole [Protonix] 40 mg PO DAILY 08/21/15 [History] Sodium Polystyrene Sulfonate [Kayexalate] 30 ml PO ASDIRECTED PRN 08/21/15 [ History] Past Medical History HEENT History: Reports: Other (See Below) Other HEENT History: Wears glasses- does not have them there Cardiovascular History: Reports: High Cholesterol, Hypertension Respiratory History: Reports: None Other Respiratory History: Hx of pneumonia with chest tube insertion 2013 Gastrointestinal History: Reports: None Other Gastrointestinal History: Hx C.diff in 2015 Genitourinary History: Reports: Dialysis Other Genitourinary History: Pt states that she does not void in between dialysis txs- Tues, Thurs, Sat are he rscheduled dialysis days [employer] History: Reports: Musculoskeletal History: Reports: Amputation Other Musculoskeletal History: Amputation below right elbow, and below left knee , right 4th toe amputation Neurological History: Reports: None Psychiatric History: Reports: Anxiety Endocrine/Metabolic History: Reports: Diabetes, Type II, Vitamin D Deficiency Hematologic History: Reports: Anemia Immunologic History: Reports: None Oncologic (Cancer) History: Reports: None Dermatologic History: Reports: Other (See Below) Other Dermatologic History: hx of Cutaneous Porphyria - Infectious Disease History Infectious Disease History: Reports: C-Difficile, Chicken Pox - Past Surgical History HEENT Surgical History: Reports: Eye Surgery Neurological Surgical History: Reports: None Musculoskeletal Surgical History: Reports: Amputation Oncologic Surgical History: Reports: None Social & Family History - Family History Family Medical History: Noncontributory HEENT: Reports: None Cardiac: Reports: High Cholesterol, Hypertension, PA Respiratory: Reports: Asthma GI: Reports: GERD : Reports: Dialysis, Renal Disease/Insufficiency OBGYN: Reports: None Musculoskeletal: Reports: Arthritis Neurological: Reports: Seizure Psychiatric: Reports: Anxiety Endocrine/Metabolic: Reports: Diabetes, Type I, Diabetes, type II Hematologic: Reports: None Immunologic: Reports: None Dermatologic: Reports: None Oncologic: Reports: None - Tobacco Use Smoking Status *Q: Current Every Day Smoker Years of Tobacco use: 20 Packs/Tins Daily: 0.1 Used Tobacco, but Quit: Yes Month Tobacco Last Used: September Second Hand Smoke Exposure: Yes - Caffeine Use Caffeine Use: Reports: Coffee - Alcohol Use Days Per Week of Alcohol Use: 0 - Recreational Drug Use Recreational Drug Use: No - Living Situation & Occupation Living situation: Reports: Single, with Family Occupation: Disabled ED ROS GENERAL - Review of Systems Review Of Systems: ROS reveals no pertinent complaints other than HPI. ED EXAM, GENERAL - Physical Exam Exam: See Below Exam Limited By: No Limitations General Appearance: Alert, WD/WN, Mild Distress Eye Exam: Bilateral Eye: EOMI, Normal Inspection, PERRL Ears: Normal External Exam, Normal Canal, Hearing Grossly Normal, Normal TMs Nose: Normal Inspection, Normal Mucosa, No Blood Throat/Mouth: Normal Lips, Normal Teeth, Normal Gums, Normal Voice, No Airway Compromise, Other (erythema of posterior pharynx ) Head: Atraumatic, Normocephalic Neck: Normal Inspection, Supple, Non-Tender, Full Range of Motion Respiratory/Chest: No Respiratory Distress, Lungs Clear, Normal Breath Sounds, No Accessory Muscle Use, Chest Non-Tender Cardiovascular: Normal Peripheral Pulses, Regular Rate, Rhythm, No Edema, No Gallop, No JVD, No Murmur, No Rub GI/Abdominal: Normal Bowel Sounds, Soft, Non-Tender, No Organomegaly, No Distention, No Abnormal Bruit, No Mass (Female) Exam: Deferred Rectal (Female) Exam: Deferred Back Exam: Normal Inspection, Full Range of Motion, NT Extremities: Normal Range of Motion, Non-Tender, No Pedal Edema, Normal Capillary Refill, Other (multiple previous amputations) Neurological: Alert, Oriented, CN II-XII Intact, Normal Cognition, Normal Gait, Normal Reflexes, No Motor/Sensory Deficits Psychiatric: Normal Affect, Normal Mood Skin Exam: Warm, Dry, Intact, Normal Color, No Rash Lymphatic: No Adenopathy Course - Vital Signs Last Recorded V/S: Last Vital Signs Temp 36.6 C 01/06/17 14:54 Pulse 91 01/06/17 14:54 Resp 12 01/06/17 14:54 BP 210/89 H 01/06/17 14:54 Pulse Ox 100 01/06/17 14:54 - Orders/Labs/Meds Meds: Medications Discontinued Medications Generic Name Dose Route Start Last Admin Trade Name Freq PRN Reason Stop Dose Admin Penicillin G Procaine/Benzathine 1.2 millunits 01/06/17 15:25 01/06/17 15:31 Bicillin C-R 600/600 IM 01/06/17 15:26 1.2 millunits ONETIME ONE Administration Departure - Departure Time of Disposition: 15:30 Disposition: Home, Self-Care 01 Condition: Fair Clinical Impression: Strep throat Instructions: Strep Throat, Back-[id number] Forms: ED Department Discharge Care Plan Goals: The patient was advised of the examination and lab results during the visit. The patient was given a shot of Penicillin while in the ED. The patient was discharged with a script for Azithromycin (250 mg) #6 to take 2 by mouth on day 1 and 1 by mouth on days 2-5. If the patient has any additional symptoms or concerns, the patient should follow-up with her primary care provider or return to the emergency department.
[2017-01-06] MEDS ORDERED: Penicillin G Benzathine/Procaine 600-600 1.2 Millunits/2 ML Syringe IM ONE (15:25)
== END 2017-01-06 16:05 | disposition home or self-care (01) ==
LOC: DL.ED 14:40
DX: J02.0 Streptococcal pharyngitis (principal); I10 Essential (primary) hypertension; E78.00 Pure hypercholesterolemia, unspecified; E11.9 Type 2 diabetes mellitus without complications; F17.210 Nicotine dependence, cigarettes, uncomplicated; Z88.5 Allergy status to narcotic agent; Z79.899 Other long term (current) drug therapy; Z87.01 Personal history of pneumonia (recurrent); Z79.4 Long term (current) use of insulin; Z86.2 Personal history of diseases of the blood and blood-forming organs and certain disorders involving the immune mechanism; Z99.2 Dependence on renal dialysis
CPT/HCPCS: 87430; 96372; 99283; J0558

== ENCOUNTER 2017-01-30 17:01 | Emergency (ER) | payer MEDICARE, MEDICAID ==
[2017-01-30 17:23] VITALS: BP 161/88
[2017-01-30] MEDS ORDERED: Acetaminophen/oxyCODONE 325-5 MG Tab PO ONE (18:23)
[2017-01-30] MEDS ORDERED: Amoxicillin 500 MG Cap PO ONE (18:23)
--- NOTE | 2017-01-30 18:23 | EDM.PDOC ---
ED HPI GENERAL MEDICAL PROBLEM - General Chief Complaint: General Stated Complaint: BAD LEG IS HURTING AND EARACHE, [id number] Time Seen by Provider: 01/30/17 18:18 Source of Information: Reports: Patient History Limitations: Reports: No Limitations - History of Present Illness INITIAL COMMENTS - FREE TEXT/NARRATIVE: 41 yo female presents with pain to right leg and ear. States that she has chronic pain in right leg but has been out of her pain medication since November. Also c/o pain to right ear, states that she thought she had a sore throat but her ear began hurting a few days ago. No other complaints. Onset Date: 01/28/17 Duration: Getting Worse Location: Reports: Head, Lower Extremity, Right Quality: Reports: Ache, Dull Severity: Moderate Improves with: Reports: None Worsens with: Reports: None Right Knee Pain Score (Numeric/FACES): 5 Right Ear Pain Score (Numeric/FACES): 5 - Related Data Allergies Allergy/AdvReac Type Severity Reaction Status Date / Time codeine Allergy Mild Stomach Uncoded 01/06/17 14:52 Upset Home Meds: Home Meds Calcium Acetate [Phoslo] 3 cap PO TIDM 12/01/13 [History] LORazepam [Ativan] 0.5 mg PO BID PRN 12/01/13 [History] Ca Cmb No.1/Vit D3/B-6/FA/B12 [Vitamin D3 1,000 Unit] 1,000 unit PO DAILY [History] Calcium Carbonate [Calcium] 1,000 mg PO TIDMEALS 05/02/14 [History] Carvedilol 12.5 mg PO DAILY 05/02/14 [History] Gabapentin [Neurontin] 300 mg PO DAILY 05/02/14 [History] Insulin Glarg,Human.Rec.Analog [Lantus] 3 units SUBCUT BEDTIME 05/02/14 [History ] Sertraline [Zoloft] 100 mg PO BEDTIME 05/02/14 [History] amLODIPine [Norvasc] 5 mg PO DAILY 05/02/14 [History] oxyCODONE HCl [Oxycodone HCl] 10 mg PO Q6HR PRN 05/02/14 [History] Insulin Lispro [HumaLOG] 1 unit SQ TIDAC 08/21/15 [History] Pantoprazole [Protonix] 40 mg PO DAILY 08/21/15 [History] Sodium Polystyrene Sulfonate [Kayexalate] 30 ml PO ASDIRECTED PRN 08/21/15 [ History] Past Medical History HEENT History: Reports: Other (See Below) Other HEENT History: Wears glasses- does not have them there Cardiovascular History: Reports: High Cholesterol, Hypertension Respiratory History: Reports: Other (See Below) Other Respiratory History: Hx of pneumonia with chest tube insertion 2013 Gastrointestinal History: Reports: Other (See Below) Other Gastrointestinal History: Hx C.diff in 2015 Genitourinary History: Reports: Dialysis Other Genitourinary History: Pt states that she does not void in between dialysis txs- Tues, Th, Sat are he rscheduled dialysis days [employer]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: Musculoskeletal History: Reports: Amputation Other Musculoskeletal History: Amputation below right elbow, and below left knee , right 4th toe amputation Neurological History: Reports: None Psychiatric History: Reports: Anxiety Endocrine/Metabolic History: Reports: Diabetes, Type II, Vitamin D Deficiency Hematologic History: Reports: Anemia Immunologic History: Reports: None Oncologic (Cancer) History: Reports: None Dermatologic History: Reports: Other (See Below) Other Dermatologic History: hx of Cutaneous Porphyria - Infectious Disease History Infectious Disease History: Reports: C-Difficile, Chicken Pox - Past Surgical History HEENT Surgical History: Reports: Eye Surgery Neurological Surgical History: Reports: None Musculoskeletal Surgical History: Reports: Amputation Oncologic Surgical History: Reports: None Social & Family History - Family History Family Medical History: Noncontributory HEENT: Reports: None Cardiac: Reports: High Cholesterol, Hypertension, [place] Respiratory: Reports: Asthma GI: Reports: GERD : Reports: Dialysis, Renal Disease/Insufficiency OBGYN: Reports: None Musculoskeletal: Reports: Arthritis Neurological: Reports: Seizure Psychiatric: Reports: Anxiety Endocrine/Metabolic: Reports: Diabetes, Type I, Diabetes, type II Hematologic: Reports: None Immunologic: Reports: None Dermatologic: Reports: None Oncologic: Reports: None - Tobacco Use Smoking Status *Q: Current Every Day Smoker Years of Tobacco use: 20 Packs/Tins Daily: 0.1 Used Tobacco, but Quit: Yes Month Tobacco Last Used: September Second Hand Smoke Exposure: Yes - Caffeine Use Caffeine Use: Reports: Coffee - Alcohol Use Days Per Week of Alcohol Use: 0 - Recreational Drug Use Recreational Drug Use: No - Living Situation & Occupation Living situation: Reports: Single, with Family Occupation: Disabled ED ROS GENERAL - Review of Systems Review Of Systems: See Below HEENT: Reports: Ear Pain Musculoskeletal: Reports: Leg Pain ED EXAM, GENERAL - Physical Exam Exam: See Below Exam Limited By: No Limitations General Appearance: Alert, WD/WN, No Apparent Distress Eye Exam: Bilateral Eye: PERRL Ears: Normal External Exam, Normal Canal, Hearing Grossly Normal, Other Ear Exam: Right Ear: Erythema, Tenderness, TM Dull, TM Red, TM Bulging, Left Ear : TM normal, Bilateral Ear: Auricle Normal, Canal Normal Nose: Normal Inspection, Normal Mucosa, No Blood Throat/Mouth: Normal Inspection, Normal Lips, Normal Teeth, Normal Gums, Normal Oropharynx, Normal Voice, No Airway Compromise Head: Atraumatic, Normocephalic Respiratory/Chest: No Respiratory Distress, Lungs Clear, Normal Breath Sounds, No Accessory Muscle Use, Chest Non-Tender Cardiovascular: Normal Peripheral Pulses, Regular Rate, Rhythm, No Edema, No Gallop, No JVD, No Murmur, No Rub Extremities: Normal Inspection, Normal Range of Motion, No Pedal Edema, Normal Capillary Refill, Leg Pain Neurological: Alert, Oriented, CN II-XII Intact, Normal Cognition, Normal Gait, Normal Reflexes, No Motor/Sensory Deficits Skin Exam: Warm, Dry, Intact, Normal Color, No Rash Course - Vital Signs Last Recorded V/S: Last Vital Signs Temp 97.1 F 01/30/17 17:22 Pulse 60 01/30/17 17:22 Resp 18 01/30/17 17:22 BP 161/88 H 01/30/17 17:22 Pulse Ox 100 01/30/17 17:22 - Orders/Labs/Meds Meds: Medications Discontinued Medications Generic Name Dose Route Start Last Admin Trade Name Juan Manuel PRN Reason Stop Dose Admin Amoxicillin 1,000 mg 01/30/17 18:23 01/30/17 18:34 Amoxil PO 01/30/17 18:24 1,000 mg ONETIME ONE Administration Oxycodone/Acetaminophen 1 tab 01/30/17 18:23 01/30/17 18:35 Percocet 325-5 Mg PO 01/30/17 18:24 1 tab ONETIME ONE Administration Departure - Departure Time of Disposition: 18:43 Disposition: Home, Self-Care 01 Condition: Good Clinical Impression: Leg pain, right Otitis media Qualifiers: Otitis media type: suppurative Chronicity: acute Laterality: right Recurrence: not specified as recurrent Spontaneous tympanic membrane rupture: without spontaneous rupture Qualified Code(s): H66.001 - Acute suppurative otitis media without spontaneous rupture of ear drum, right ear - Discharge Information Instructions: Otitis Media, Adult, [id number], Chronic Pain Forms: ED Department Discharge Additional Instructions: follow up with your PCP as scheduled. take the antibiotic for 10 days.
== END 2017-01-30 18:50 | disposition home or self-care (01) ==
LOC: DL.ED 17:01
DX: H66.001 Acute suppurative otitis media without spontaneous rupture of ear drum, right ear (principal); M79.661 Pain in right lower leg; I10 Essential (primary) hypertension; E78.00 Pure hypercholesterolemia, unspecified; F17.210 Nicotine dependence, cigarettes, uncomplicated; E11.9 Type 2 diabetes mellitus without complications; F41.9 Anxiety disorder, unspecified; Z86.2 Personal history of diseases of the blood and blood-forming organs and certain disorders involving the immune mechanism; Z98.890 Other specified postprocedural states; Z79.4 Long term (current) use of insulin; Z79.899 Other long term (current) drug therapy; Z88.5 Allergy status to narcotic agent
CPT/HCPCS: 99283; A9270; 99284

== ENCOUNTER 2017-02-05 14:29 | Emergency (ER) | payer MEDICARE, MEDICAID ==
[2017-02-05 14:44] VITALS: BP 137/73
[2017-02-05] MEDS ORDERED: Acetaminophen 325 MG Tab PO ONE (15:29)
--- NOTE | 2017-02-05 15:33 | EDM.PDOC ---
[id number] Complaint: LEG AND EAR PAIN, [id number] Time Seen by Provider: 02/05/17 15:20 Source of Information: Reports: Patient History Limitations: Reports: No Limitations - History of Present Illness INITIAL COMMENTS - FREE TEXT/NARRATIVE: This 41 yo female patient reports to the ED with right ear pain and drainage as well as continued pain in her right knee. The patient reports she has an appointment with a pain management provider on Thursday (02/09/17) for her right knee pain. The patient reports she could not get a ride to her appointment in the clinic yesterday and could not get into the clinic this afternoon. The patient was seen for similar symptoms 7 days ago in the ED and reports she has been taking her antibiotics as prescribed with no relief. Duration: Week(s):, Constant, Getting Worse Location: Reports: Head (righ tear), Lower Extremity, Right Quality: Reports: Ache, Sharp Severity: Severe Worsens with: Reports: None Associated Symptoms: Reports: No Other Symptoms Right Knee Pain Score (Numeric/FACES): 6 - Related Data Allergies Allergy/AdvReac Type Severity Reaction Status Date / Time codeine AdvReac Mild Stomach Uncoded 02/07/17 10:32 Upset Home Meds: Home Meds Calcium Acetate [Phoslo] 3 cap PO TIDM 12/01/13 [History] Ca Cmb No.1/Vit D3/B-6/FA/B12 [Vitamin D3 1,000 Unit] 1,000 unit PO DAILY [History] Calcium Carbonate [Calcium] 1,000 mg PO TIDMEALS 05/02/14 [History] Carvedilol 12.5 mg PO DAILY 05/02/14 [History] Gabapentin [Neurontin] 300 mg PO DAILY 05/02/14 [History] Insulin Glarg,Human.Rec.Analog [Lantus] 3 units SUBCUT BEDTIME 05/02/14 [History ] Sertraline [Zoloft] 100 mg PO BEDTIME 05/02/14 [History] amLODIPine [Norvasc] 5 mg PO DAILY 05/02/14 [History] oxyCODONE HCl [Oxycodone HCl] 10 mg PO Q6HR PRN 05/02/14 [History] Insulin Lispro [HumaLOG] 1 unit SQ TIDAC 08/21/15 [History] Pantoprazole [Protonix] 40 mg PO DAILY 08/21/15 [History] Sodium Polystyrene Sulfonate [Kayexalate] 30 ml PO ASDIRECTED PRN 08/21/15 [ History] Isosorbide Mononitrate [Imdur] 60 mg PO DAILY 02/05/17 [History] Past Medical History HEENT History: Reports: Other (See Below) Other HEENT History: Wears glasses- does not have them there Cardiovascular History: Reports: High Cholesterol, Hypertension Respiratory History: Reports: Other (See Below) Other Respiratory History: Hx of pneumonia with chest tube insertion 2013 Gastrointestinal History: Reports: Other (See Below) Other Gastrointestinal History: Hx C.diff in 2015 Genitourinary History: Reports: Dialysis Other Genitourinary History: Pt states that she does not void in between dialysis txs- Tues, Thurs, Sat are he 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: Musculoskeletal History: Reports: Amputation Other Musculoskeletal History: Amputation below right elbow, and below left knee , right 4th toe amputation Neurological History: Reports: None Psychiatric History: Reports: Anxiety Endocrine/Metabolic History: Reports: Diabetes, Type II, Vitamin D Deficiency Hematologic History: Reports: Anemia Immunologic History: Reports: None Oncologic (Cancer) History: Reports: None Dermatologic History: Reports: Other (See Below) Other Dermatologic History: hx of Cutaneous Porphyria - Infectious Disease History Infectious Disease History: Reports: C-Difficile, Chicken Pox - Past Surgical History HEENT Surgical History: Reports: Eye Surgery Neurological Surgical History: Reports: None Musculoskeletal Surgical History: Reports: Amputation Oncologic Surgical History: Reports: None Social & Family History - Family History Family Medical History: Noncontributory HEENT: Reports: None Cardiac: Reports: High Cholesterol, Hypertension, [place] Respiratory: Reports: Asthma GI: Reports: GERD : Reports: Dialysis, Renal Disease/Insufficiency OBGYN: Reports: None Musculoskeletal: Reports: Arthritis Neurological: Reports: Seizure Psychiatric: Reports: Anxiety Endocrine/Metabolic: Reports: Diabetes, Type I, Diabetes, type II Hematologic: Reports: None Immunologic: Reports: None Dermatologic: Reports: None Oncologic: Reports: None - Tobacco Use Smoking Status *Q: Current Every Day Smoker Years of Tobacco use: 20 Packs/Tins Daily: 0.1 Used Tobacco, but Quit: Yes Month Tobacco Last Used: September Second Hand Smoke Exposure: Yes - Caffeine Use Caffeine Use: Reports: Coffee - Alcohol Use Days Per Week of Alcohol Use: 0 - Recreational Drug Use Recreational Drug Use: No - Living Situation & Occupation Living situation: Reports: Single, with Family Occupation: Disabled Review of Systems - Review of Systems Review Of Systems: ROS reveals no pertinent complaints other than HPI. ED EXAM, GENERAL - Physical Exam Exam: See Below Exam Limited By: No Limitations General Appearance: Alert, WD/WN, Moderate Distress Eye Exam: Bilateral Eye: EOMI, Normal Inspection, PERRL Ear Exam: Right Ear: Discharge, TM Red, TM Perforation, Left Ear: Canal Normal, TM normal Nose: Normal Inspection, Normal Mucosa, No Blood Throat/Mouth: Normal Inspection, Normal Lips, Normal Teeth, Normal Gums, Normal Oropharynx, Normal Voice, No Airway Compromise Head: Atraumatic, Normocephalic Neck: Normal Inspection, Supple, Non-Tender, Full Range of Motion Respiratory/Chest: No Respiratory Distress, Lungs Clear, Normal Breath Sounds, No Accessory Muscle Use, Chest Non-Tender Cardiovascular: Normal Peripheral Pulses, Regular Rate, Rhythm, No Edema, No Gallop, No JVD, No Murmur, No Rub GI/Abdominal: Normal Bowel Sounds, Soft, Non-Tender, No Organomegaly, No Distention, No Abnormal Bruit, No Mass (Female) Exam: Deferred Rectal (Female) Exam: Deferred Extremities: Leg Pain (right knee), Limited Range of Motion, Other (left below the knee amputation) Neurological: Alert, Oriented, CN II-XII Intact Psychiatric: Depressed Mood, Flat Affect Skin Exam: Warm, Dry, Intact, Normal Color, No Rash Lymphatic: No Adenopathy Course - Vital Signs Last Recorded V/S: Last Vital Signs Temp 35.8 C 02/05/17 14:42 Pulse 89 02/05/17 14:42 Resp 20 02/05/17 14:42 BP 137/73 02/05/17 14:42 Pulse Ox 100 02/05/17 14:42 - Orders/Labs/Meds Meds: Medications Discontinued Medications Generic Name Dose Route Start Last Admin Trade Name Freq PRN Reason Stop Dose Admin Acetaminophen 650 mg 02/05/17 15:29 02/05/17 15:38 Tylenol PO 02/05/17 15:30 650 mg NOW ONE Administration Departure - Departure Time of Disposition: 15:30 Disposition: Home, Self-Care 01 Condition: Fair Clinical Impression: Chronic pain of right knee Otitis externa Qualifiers: Otitis externa type: diffuse Chronicity: acute Laterality: right Qualified Code (s): H60.311 - Diffuse otitis externa, right ear - Discharge Information Instructions: Otitis Externa, [id number], Knee Pain Referrals: PCP,None [Primary Care Provider] - Forms: ED Department Discharge Care Plan Goals: The patient was advised of the examination results during the visit. The patient was given an oral dose of Tylenol for her knee pain and a script for Cipro/Dex to apply 4 drops to her right ear 2 times per day for 7 days. The patient should follow-up with her pain management provider as scheduled on Thursday (02/09/17). If the patient has any additional symptoms or concerns, the patient should visit her primary care facility or return to the emergency department.
== END 2017-02-05 15:43 | disposition hospice, inpatient (51) ==
LOC: DL.ED 14:29
DX: H60.311 Diffuse otitis externa, right ear (principal); M25.561 Pain in right knee; G89.29 Other chronic pain; E78.00 Pure hypercholesterolemia, unspecified; I10 Essential (primary) hypertension; F41.9 Anxiety disorder, unspecified; E11.9 Type 2 diabetes mellitus without complications; F17.210 Nicotine dependence, cigarettes, uncomplicated; Z79.4 Long term (current) use of insulin; Z79.899 Other long term (current) drug therapy; Z88.5 Allergy status to narcotic agent; Z98.890 Other specified postprocedural states; Z87.01 Personal history of pneumonia (recurrent); Z89.512 Acquired absence of left leg below knee; Z89.211 Acquired absence of right upper limb below elbow; Z89.422 Acquired absence of other left toe(s); Z86.2 Personal history of diseases of the blood and blood-forming organs and certain disorders involving the immune mechanism
CPT/HCPCS: 99283; A9270

== ENCOUNTER 2017-02-07 10:15 | Emergency (ER) | payer MEDICARE, MEDICAID ==
[2017-02-07 10:32] VITALS: BP 174/75
--- NOTE | 2017-02-07 11:12 | EDM.PDOC ---
ED HPI GENERAL MEDICAL PROBLEM - General Chief Complaint: Respiratory Problem Stated Complaint: [id number] CHILLS BACK PAIN Time Seen by Provider: 02/07/17 11:07 Source of Information: Reports: Patient History Limitations: Reports: No Limitations - History of Present Illness INITIAL COMMENTS - FREE TEXT/NARRATIVE: 41 yo female presents for dialysis but states that she is having chest pain that radiates through to her back that started last night. Describes it as pressure. States that she thought she was having heart burn so she took a tums but unsure if worked but states " it must've worked because I fell asleep." Patient is very anxious. 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 Denies fever however states that she is cold. 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(s) (Tums) Back Pain Score (Numeric/FACES): 7 - Related Data Allergies Allergy/AdvReac Type Severity Reaction Status Date / Time codeine AdvReac Mild Stomach Uncoded 02/07/17 10:32 Upset Home Meds: Home Meds Calcium Acetate [Phoslo] 3 cap PO TIDM 12/01/13 [History] Ca Cmb No.1/Vit D3/B-6/FA/B12 [Vitamin D3 1,000 Unit] 1,000 unit PO DAILY [History] Calcium Carbonate [Calcium] 1,000 mg PO TIDMEALS 05/02/14 [History] Carvedilol 12.5 mg PO DAILY 05/02/14 [History] Gabapentin [Neurontin] 300 mg PO DAILY 05/02/14 [History] Insulin Glarg,Human.Rec.Analog [Lantus] 3 units SUBCUT BEDTIME 05/02/14 [History ] Sertraline [Zoloft] 100 mg PO BEDTIME 05/02/14 [History] amLODIPine [Norvasc] 5 mg PO DAILY 05/02/14 [History] oxyCODONE HCl [Oxycodone HCl] 10 mg PO Q6HR PRN 05/02/14 [History] Insulin Lispro [HumaLOG] 1 unit SQ TIDAC 08/21/15 [History] Pantoprazole [Protonix] 40 mg PO DAILY 08/21/15 [History] Sodium Polystyrene Sulfonate [Kayexalate] 30 ml PO ASDIRECTED PRN 08/21/15 [ History] Isosorbide Mononitrate [Imdur] 60 mg PO DAILY 02/05/17 [History] Past Medical History HEENT History: Reports: Other (See Below) Other HEENT History: Wears glasses- does not have them there Cardiovascular History: Reports: High Cholesterol, Hypertension Respiratory History: Reports: Other (See Below) Other Respiratory History: Hx of pneumonia with chest tube insertion 2013 Gastrointestinal History: Reports: Other (See Below) Other Gastrointestinal History: Hx C.diff in 2015 Genitourinary History: Reports: Dialysis Other Genitourinary History: Pt states that she does not void in between dialysis txs- Tues, Thurs, Sat are he 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: Musculoskeletal History: Reports: Amputation Other Musculoskeletal History: Amputation below right elbow, and below left knee , right 4th toe amputation Neurological History: Reports: None Psychiatric History: Reports: Anxiety Endocrine/Metabolic History: Reports: Diabetes, Type II, Vitamin D Deficiency Hematologic History: Reports: Anemia Immunologic History: Reports: None Oncologic (Cancer) History: Reports: None Dermatologic History: Reports: Other (See Below) Other Dermatologic History: hx of Cutaneous Porphyria - Infectious Disease History Infectious Disease History: Reports: C-Difficile, Chicken Pox - Past Surgical History HEENT Surgical History: Reports: Eye Surgery Neurological Surgical History: Reports: None Musculoskeletal Surgical History: Reports: Amputation Oncologic Surgical History: Reports: None Social & Family History - Family History Family Medical History: Noncontributory HEENT: Reports: None Cardiac: Reports: High Cholesterol, Hypertension, [place] Respiratory: Reports: Asthma GI: Reports: GERD : Reports: Dialysis, Renal Disease/Insufficiency OBGYN: Reports: None Musculoskeletal: Reports: Arthritis Neurological: Reports: Seizure Psychiatric: Reports: Anxiety Endocrine/Metabolic: Reports: Diabetes, Type I, Diabetes, type II Hematologic: Reports: None Immunologic: Reports: None Dermatologic: Reports: None Oncologic: Reports: None - Tobacco Use Smoking Status *Q: Former Smoker Years of Tobacco use: 26 Packs/Tins Daily: 0.5 Used Tobacco, but Quit: Yes Month Tobacco Last Used: edilberto Second Hand Smoke Exposure: No - Caffeine Use Caffeine Use: Reports: Coffee, Soda - Alcohol Use Days Per Week of Alcohol Use: 0 - Recreational Drug Use Recreational Drug Use: No - Living Situation & Occupation Living situation: Reports: Single, with Family Occupation: Disabled ED ROS GENERAL - Review of Systems Review Of Systems: See Below Constitutional: Reports: Chills Cardiovascular: Reports: Chest Pain Musculoskeletal: Reports: Back Pain ED EXAM, GENERAL - Physical Exam Exam: See Below Exam Limited By: No Limitations General Appearance: Alert, WD/WN, No Apparent Distress, Anxious Eye Exam: Bilateral Eye: PERRL Head: Atraumatic, Normocephalic Neck: Normal Inspection, Supple, Non-Tender, Full Range of Motion Respiratory/Chest: No Respiratory Distress, Lungs Clear, Normal Breath Sounds, No Accessory Muscle Use, Chest Non-Tender Cardiovascular: Normal Peripheral Pulses, Regular Rate, Rhythm, No Edema GI/Abdominal: Normal Bowel Sounds, Soft, Non-Tender, No Organomegaly, No Distention, No Abnormal Bruit, No Mass Back Exam: Normal Inspection, Full Range of Motion, NT Extremities: Normal Inspection, Normal Range of Motion, Non-Tender, Normal Capillary Refill, No Pedal Edema Neurological: Alert, Oriented, Normal Cognition Psychiatric: Anxious Skin Exam: Warm, Dry, Intact, Normal Color, No Rash Course - Vital Signs Last Recorded V/S: Last Vital Signs Temp 98.9 F 02/07/17 10:22 Pulse 120 H 02/07/17 10:22 Resp 20 02/07/17 10:22 BP 174/75 H 02/07/17 10:22 Pulse Ox 93 L 02/07/17 10:22 - Orders/Labs/Meds Orders: Active Orders 24 hr Category Date Time Status Cardiac Monitoring [RC] . DIRECTED Care 02/07/17 11:06 Active EKG Documentation Completion [RC] STAT Care 02/07/17 11:06 Active Labs: Laboratory Tests 02/07/17 02/07/17 02/07/17 Range/Units 11:15 11:15 11:15 WBC 17.9 H (5.0-10.0) 10^3/uL RBC 3.55 L (4.2-5.4) 10^6/uL Hgb 10.9 L (12.0-16.0) g/dL Hct 34.5 L (37.0-47.0) % MCV 97.2 (80-100) fL MCH 30.7 (27.0-34.0) pg MCHC 31.6 L (33.0-35.0) g/dL Plt Count 155 (150-450) 10^3/uL Neut % (Auto) 94.8 H (42.2-75.2) % Lymph % (Auto) 2.3 L (20.5-50.1) % [place] % (Auto) 2.6 (2-8) % Eos % (Auto) 0.2 L (1.0-3.0) % Baso % (Auto) 0.1 (0.0-1.0) % Sodium 131 L (135-145) mmol/L Potassium 4.4 (3.6-5.0) mmol/L Chloride 94 L (101-111) mmol/L Carbon Dioxide 18.0 L (21.0-31.0) mmol/L Anion Gap 23.4 BUN 80 H (7-18) mg/dL Creatinine 7.1 H (0.6-1.3) mg/dL Est Cr Clr Drug Dosing TNP Estimated GFR (MDRD) 6 Glucose 352 H (74-105) mg/dL Calcium 6.9 L (8.4-10.2) mg/dl Creatine Kinase 47 (26-174) IU/L Creatine Kinase Index 3.2 H (0-2.4) % CK-MB (CK-2) 1.50 (0.4-4.7) ng/mL Troponin I 0.03 H* (0.00-0.02) ng/ml Meds: Medications Discontinued Medications Generic Name Dose Route Start Last Admin Trade Name Freq PRN Reason Stop Dose Admin Al Hydroxide/Mg Hydroxide 30 ml 02/07/17 11:51 02/07/17 11:57 Gi Cocktail PO 02/07/17 11:52 30 ml ONETIME ONE Administration Insulin Human Regular 4 unit 02/07/17 12:30 Humulin R SUBCUT 02/07/17 12:31 ONETIME ONE Protocol Levofloxacin 750 mg 02/07/17 12:22 Levaquin PO 02/07/17 12:23 ONETIME ONE - Re-Assessments/Exams Free Text/Narrative Re-Assessment/Exam: 02/07/17 12:27 X-ray reveal Acute RUL pneumonia.Will treat with PO medication. Pt to receive antibiotic after her dialysis treatment today. Will continue Levaquin treatment for 7 days. No acute cardiac events noted. Departure - Departure Time of Disposition: 12:37 Disposition: Home, Self-Care 01 Condition: Good Clinical Impression: Pneumonia Qualifiers: Pneumonia type: due to unspecified organism Laterality: right Lung location: unspecified part of lung Qualified Code(s): J18.9 - Pneumonia, unspecified organism - Discharge Information Instructions: Community-Acquired Pneumonia, Adult, [facility] Forms: ED Department Discharge Additional Instructions: Go straight to dialysis. Take your antibiotic after you have completed todays dialysis. follow up with your PCP in 5 days. return for worsening symptoms - My Orders Last 24 Hours: My Active Orders 02/07/17 11:06 Cardiac Monitoring [RC] . DIRECTED EKG Documentation Completion [RC] STAT - Assessment/Plan Last 24 Hours: My Active Orders 02/07/17 11:06 Cardiac Monitoring [RC] . DIRECTED EKG Documentation Completion [RC] STAT
[2017-02-07 11:41] LABS: CHLORIDE,CL 94 mmol/L (101-111); SODIUM,NA 131 mmol/L (135-145)
[2017-02-07] MEDS ORDERED: GI Cocktail Oral Solution 30 ML PO ONE (11:51)
--- NOTE | 2017-02-07 11:57 | CR ---
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 Interpretation: Abnormal. *Asymmetric dense new pneumonic like consolidation involving the right perihilar region and right up per lobe when compared directly chest radiograph 29 July 2016. Old lingular infiltrate (bronchiectasis?) and pleural parenchymal scarring left lung base. 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 Normal cardiac silhouette without alveolar edema or dependent new pleural fluid accumulation. No lung mass, other focal lobar infiltrate, atelectasis or collapse. No pneumothorax. CONCLUSION: Acute RUL pneumonia.
[2017-02-07] MEDS ORDERED: Levofloxacin 500 MG Tab PO ONE (12:22)
[2017-02-07] MEDS ORDERED: Insulin Regular, Human 100 Units/ML 3 ML Vial SUBCUT ONE (12:30)
--- NOTE | 2017-02-10 11:15 | EKG ---
02/07/2017- OLIVA APARICIO - EKG shows sinus tachycardia, nonspecific T-wave abnormalities. [facility] /[id number]
== END 2017-02-07 12:52 | disposition home or self-care (01) ==
LOC: DL.ED 10:15
DX: J18.9 Pneumonia, unspecified organism (principal); E78.00 Pure hypercholesterolemia, unspecified; I10 Essential (primary) hypertension; E11.9 Type 2 diabetes mellitus without complications; Z86.2 Personal history of diseases of the blood and blood-forming organs and certain disorders involving the immune mechanism; Z88.5 Allergy status to narcotic agent; Z79.4 Long term (current) use of insulin; Z79.899 Other long term (current) drug therapy; Z87.891 Personal history of nicotine dependence; Z98.890 Other specified postprocedural states
CPT/HCPCS: 36415; 71020; 80048; 82550; 82553; 84484; 85025; 93005; 96372; 99284; A9270; J1815; 93010

== ENCOUNTER 2017-03-18 11:22 | Emergency (ER) | payer MEDICARE, MEDICAID ==
--- NOTE | 2017-03-18 11:49 | EDM.PDOC ---
ED HPI GENERAL MEDICAL PROBLEM - General Stated Complaint: SENT FROM DIALYSIS [id number] Time Seen by Provider: 03/18/17 11:48 Source of Information: Reports: Patient History Limitations: Reports: No Limitations - History of Present Illness INITIAL COMMENTS - FREE TEXT/NARRATIVE: 41 yo female sent from dialysis for clearance as pt has missed two rounds of dialysis. Pt alert and oriented. no complaints Onset: Today Associated Symptoms: Reports: No Other Symptoms - Related Data Allergies Allergy/AdvReac Type Severity Reaction Status Date / Time codeine AdvReac Mild Stomach Uncoded 02/07/17 10:32 Upset Home Meds: Home Meds Calcium Acetate [Phoslo] 3 cap PO TIDM 12/01/13 [History] Ca Cmb No.1/Vit D3/B-6/FA/B12 [Vitamin D3 1,000 Unit] 1,000 unit PO DAILY [History] Calcium Carbonate [Calcium] 1,000 mg PO TIDMEALS 05/02/14 [History] Carvedilol 12.5 mg PO DAILY 05/02/14 [History] Gabapentin [Neurontin] 300 mg PO DAILY 05/02/14 [History] Insulin Glarg,Human.Rec.Analog [Lantus] 3 units SUBCUT BEDTIME 05/02/14 [History ] Sertraline [Zoloft] 100 mg PO BEDTIME 05/02/14 [History] amLODIPine [Norvasc] 5 mg PO DAILY 05/02/14 [History] Insulin Lispro [HumaLOG] 1 unit SQ TIDAC 08/21/15 [History] Pantoprazole [Protonix] 40 mg PO DAILY 08/21/15 [History] Sodium Polystyrene Sulfonate [Kayexalate] 30 ml PO ASDIRECTED PRN 08/21/15 [ History] Isosorbide Mononitrate [Imdur] 60 mg PO DAILY 02/05/17 [History] Past Medical History HEENT History: Reports: Other (See Below) Other HEENT History: Wears glasses- does not have them there Cardiovascular History: Reports: High Cholesterol, Hypertension Respiratory History: Reports: Other (See Below) Other Respiratory History: Hx of pneumonia with chest tube insertion 2013 Gastrointestinal History: Reports: Other (See Below) Other Gastrointestinal History: Hx C.diff in 2015 Genitourinary History: Reports: Dialysis Other Genitourinary History: Pt states that she does not void in between dialysis txs- Tues, Thurs, Sat are he rscheduled dialysis days 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: Musculoskeletal History: Reports: Amputation Other Musculoskeletal History: Amputation below right elbow, and below left knee , right 4th toe amputation Neurological History: Reports: None Psychiatric History: Reports: Anxiety Endocrine/Metabolic History: Reports: Diabetes, Type II, Vitamin D Deficiency Hematologic History: Reports: Anemia Immunologic History: Reports: None Oncologic (Cancer) History: Reports: None Dermatologic History: Reports: Other (See Below) Other Dermatologic History: hx of Cutaneous Porphyria - Infectious Disease History Infectious Disease History: Reports: C-Difficile, Chicken Pox - Past Surgical History HEENT Surgical History: Reports: Eye Surgery Neurological Surgical History: Reports: None Musculoskeletal Surgical History: Reports: Amputation Oncologic Surgical History: Reports: None Social & Family History - Family History Family Medical History: Noncontributory HEENT: Reports: None Cardiac: Reports: High Cholesterol, Hypertension, [place] Respiratory: Reports: Asthma GI: Reports: GERD : Reports: Dialysis, Renal Disease/Insufficiency OBGYN: Reports: None Musculoskeletal: Reports: Arthritis Neurological: Reports: Seizure Psychiatric: Reports: Anxiety Endocrine/Metabolic: Reports: Diabetes, Type I, Diabetes, type II Hematologic: Reports: None Immunologic: Reports: None Dermatologic: Reports: None Oncologic: Reports: None - Tobacco Use Smoking Status *Q: Former Smoker Years of Tobacco use: 26 Packs/Tins Daily: 0.5 Used Tobacco, but Quit: Yes Month Tobacco Last Used: july Second Hand Smoke Exposure: No - Caffeine Use Caffeine Use: Reports: Coffee, Soda - Alcohol Use Days Per Week of Alcohol Use: 0 - Recreational Drug Use Recreational Drug Use: No - Living Situation & Occupation Living situation: Reports: Single, with Family Occupation: Disabled ED ROS GENERAL - Review of Systems Review Of Systems: ROS reveals no pertinent complaints other than HPI. ED EXAM, GENERAL - Physical Exam Exam: See Below Exam Limited By: No Limitations General Appearance: Alert, WD/WN, No Apparent Distress Eye Exam: Bilateral Eye: EOMI, Normal Inspection, PERRL Throat/Mouth: Normal Inspection, Normal Lips, Normal Teeth, Normal Gums, Normal Oropharynx, Normal Voice, No Airway Compromise Head: Atraumatic, Normocephalic Neck: Normal Inspection, Supple, Non-Tender, Full Range of Motion Respiratory/Chest: No Respiratory Distress, Lungs Clear, Normal Breath Sounds, No Accessory Muscle Use, Chest Non-Tender Cardiovascular: Normal Peripheral Pulses, Regular Rate, Rhythm, No Edema, No Gallop, No JVD, No Murmur, No Rub GI/Abdominal: Normal Bowel Sounds, Soft, Non-Tender, No Organomegaly, No Distention, No Abnormal Bruit, No Mass Extremities: Normal Inspection Neurological: Alert, Oriented, CN II-XII Intact, Normal Cognition, No Motor/ Sensory Deficits Skin Exam: Warm, Dry, Intact, Normal Color, No Rash Course - Vital Signs Last Recorded V/S: Last Vital Signs Temp 96.8 F 03/18/17 11:25 Pulse 72 03/18/17 11:25 Resp 16 03/18/17 11:25 BP 85/50 L 03/18/17 11:25 Pulse Ox 87 L 03/18/17 11:25 - Orders/Labs/Meds Labs: Laboratory Tests 03/18/17 03/18/17 03/18/17 Range/Units 11:37 11:48 11:48 WBC 9.8 (5.0-10.0) 10^3/uL RBC 3.15 L (4.2-5.4) 10^6/uL Hgb 9.2 L (12.0-16.0) g/dL Hct 30.1 L (37.0-47.0) % MCV 95.6 (80-100) fL MCH 29.2 (27.0-34.0) pg MCHC 30.6 L (33.0-35.0) g/dL Plt Count 228 (150-450) 10^3/uL Neut % (Auto) 87.3 H (42.2-75.2) % Lymph % (Auto) 7.8 L (20.5-50.1) % Josephine % (Auto) 4.3 (2-8) % Eos % (Auto) 0.4 L (1.0-3.0) % Baso % (Auto) 0.2 (0.0-1.0) % Sodium 130 L (135-145) mmol/L Potassium 6.1 H (3.6-5.0) mmol/L Chloride 94 L (101-111) mmol/L Carbon Dioxide 17.0 L (21.0-31.0) mmol/L Anion Gap 25.1 BUN 111 H (7-18) mg/dL Creatinine 11.4 H (0.6-1.3) mg/dL Est Cr Clr Drug Dosing 5.49 mL/min Estimated GFR (MDRD) 4 Glucose 273 H (74-105) mg/dL POC Glucose 260 H (70-105) mg/dl Calcium 5.9 L (8.4-10.2) mg/dl Meds: Medications Discontinued Medications Generic Name Dose Route Start Last Admin Trade Name Freq PRN Reason Stop Dose Admin Calcium Carbonate/Glycine 1,000 mg 03/18/17 13:04 Tums PO 03/18/17 13:05 ONETIME ONE - Re-Assessments/Exams Free Text/Narrative Re-Assessment/Exam: 03/18/17 13:49 no acute findings, clear for dialysis 03/18/17 13:50 Departure - Departure Time of Disposition: 13:50 Disposition: Home, Self-Care 01 Condition: Good Clinical Impression: End stage renal failure on dialysis - Discharge Information Instructions: Dialysis, Chronic Kidney Disease, [id number] Forms: ED Department Discharge Additional Instructions: Go directly to dialysis
[2017-03-18 12:01] VITALS: BP 85/50
[2017-03-18] MEDS ORDERED: Calcium Carbonate 500 MG Tab.Chew PO ONE (13:04)
== END 2017-03-18 14:15 | disposition home or self-care (01) ==
LOC: DL.ED 11:22
DX: I12.0 Hypertensive chronic kidney disease with stage 5 chronic kidney disease or end stage renal disease (principal); N18.6 End stage renal disease; F41.9 Anxiety disorder, unspecified; E11.22 Type 2 diabetes mellitus with diabetic chronic kidney disease; E78.00 Pure hypercholesterolemia, unspecified; Z88.5 Allergy status to narcotic agent; Z79.4 Long term (current) use of insulin; Z79.899 Other long term (current) drug therapy; Z87.01 Personal history of pneumonia (recurrent); Z86.2 Personal history of diseases of the blood and blood-forming organs and certain disorders involving the immune mechanism; Z99.2 Dependence on renal dialysis; Z87.891 Personal history of nicotine dependence
CPT/HCPCS: 36415; 80048; 82962; 85025; 99283; A9270

== ENCOUNTER 2017-04-01 10:35 | Emergency (ER) | payer MEDICARE, MEDICAID ==
[2017-04-01] MEDS ORDERED: Sodium Chloride 0.9% 1,000 ML IV SCH (10:45)
--- NOTE | 2017-04-01 10:48 | EDM.PDOC ---
ED HPI GENERAL MEDICAL PROBLEM - General Chief Complaint: General Stated Complaint: BY AMBULANCE Time Seen by Provider: 04/01/17 10:43 Source of Information: Reports: Patient, EMS History Limitations: Reports: No Limitations - History of Present Illness INITIAL COMMENTS - FREE TEXT/NARRATIVE: 41 yo K[place] Female c/o not feeling well and had last Dialysis 5 days ago also has not taken any of her medications Onset: Today Onset Date: 04/01/17 Onset Time: 12:00 Duration: Day(s): Location: Reports: Generalized Quality: Reports: Ache Severity: Moderate Improves with: Reports: None Worsens with: Reports: None Context: Reports: Activity Associated Symptoms: Reports: Loss of Appetite, Malaise Back Pain Score (Numeric/FACES): 8 - Related Data Allergies Allergy/AdvReac Type Severity Reaction Status Date / Time codeine AdvReac Mild Stomach Uncoded 04/01/17 10:58 Upset Home Meds: Home Meds Calcium Acetate [Phoslo] 3 cap PO TIDM 12/01/13 [History] Ca Cmb No.1/Vit D3/B-6/FA/B12 [Vitamin D3 1,000 Unit] 1,000 unit PO DAILY [History] Calcium Carbonate [Calcium] 1,000 mg PO TIDMEALS 05/02/14 [History] Carvedilol 12.5 mg PO DAILY 05/02/14 [History] Gabapentin [Neurontin] 300 mg PO DAILY 05/02/14 [History] Insulin Glarg,Human.Rec.Analog [Lantus] 3 units SUBCUT BEDTIME 05/02/14 [History ] Sertraline [Zoloft] 100 mg PO BEDTIME 05/02/14 [History] amLODIPine [Norvasc] 5 mg PO DAILY 05/02/14 [History] Insulin Lispro [HumaLOG] 1 unit SQ TIDAC 08/21/15 [History] Pantoprazole [Protonix] 40 mg PO DAILY 08/21/15 [History] Sodium Polystyrene Sulfonate [Kayexalate] 30 ml PO ASDIRECTED PRN 08/21/15 [ History] Isosorbide Mononitrate [Imdur] 60 mg PO DAILY 02/05/17 [History] Past Medical History HEENT History: Reports: Other (See Below) Other HEENT History: Wears glasses- does not have them there Cardiovascular History: Reports: High Cholesterol, Hypertension Respiratory History: Reports: Other (See Below) Other Respiratory History: Hx of pneumonia with chest tube insertion 2013 Gastrointestinal History: Reports: Other (See Below) Other Gastrointestinal History: Hx C.diff in 2015 Genitourinary History: Reports: Dialysis Other Genitourinary History: Pt states that she does not void in between dialysis txs- Tues, Thurs, Sat are he 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: Musculoskeletal History: Reports: Amputation Other Musculoskeletal History: Amputation below right elbow, and below left knee , right 4th toe amputation Neurological History: Reports: None Psychiatric History: Reports: Anxiety Endocrine/Metabolic History: Reports: Diabetes, Type II, Vitamin D Deficiency Hematologic History: Reports: Anemia Immunologic History: Reports: None Oncologic (Cancer) History: Reports: None Dermatologic History: Reports: Other (See Below) Other Dermatologic History: hx of Cutaneous Porphyria - Infectious Disease History Infectious Disease History: Reports: C-Difficile, Chicken Pox - Past Surgical History HEENT Surgical History: Reports: Eye Surgery Neurological Surgical History: Reports: None Musculoskeletal Surgical History: Reports: Amputation Oncologic Surgical History: Reports: None Social & Family History - Family History Family Medical History: Noncontributory HEENT: Reports: None Cardiac: Reports: High Cholesterol, Hypertension, [place] Respiratory: Reports: Asthma GI: Reports: GERD : Reports: Dialysis, Renal Disease/Insufficiency OBGYN: Reports: None Musculoskeletal: Reports: Arthritis Neurological: Reports: Seizure Psychiatric: Reports: Anxiety Endocrine/Metabolic: Reports: Diabetes, Type I, Diabetes, type II Hematologic: Reports: None Immunologic: Reports: None Dermatologic: Reports: None Oncologic: Reports: None - Tobacco Use Smoking Status *Q: Former Smoker Years of Tobacco use: 26 Packs/Tins Daily: 0.5 Used Tobacco, but Quit: Yes Month Tobacco Last Used: july Hand Smoke Exposure: No - Caffeine Use Caffeine Use: Reports: Coffee, Soda - Alcohol Use Days Per Week of Alcohol Use: 0 - Recreational Drug Use Recreational Drug Use: No - Living Situation & Occupation Living situation: Reports: Single, with Family Occupation: Disabled ED ROS GENERAL - Review of Systems Review Of Systems: See Below Constitutional: Reports: Malaise, Weakness HEENT: Reports: No Symptoms Respiratory: Reports: No Symptoms Cardiovascular: Reports: No Symptoms Endocrine: Reports: No Symptoms GI/Abdominal: Reports: No Symptoms : Reports: No Symptoms Musculoskeletal: Reports: Back Pain Skin: Reports: No Symptoms Neurological: Reports: No Symptoms Psychiatric: Reports: Anxiety Hematologic/Lymphatic: Reports: No Symptoms Immunologic: Reports: No Symptoms ED EXAM, GENERAL - Physical Exam Exam: See Below Exam Limited By: No Limitations General Appearance: Alert, No Apparent Distress, Anxious Eye Exam: Bilateral Eye: EOMI Ears: Normal External Exam, Normal Canal Ear Exam: Bilateral Ear: TM normal Nose: Normal Inspection Throat/Mouth: Normal Inspection Head: Atraumatic, Normocephalic Neck: Normal Inspection, Supple Respiratory/Chest: No Respiratory Distress, Lungs Clear Cardiovascular: Normal Peripheral Pulses, Regular Rate, Rhythm, No Edema Peripheral Pulses: 2+: Brachial (L), Brachial (R) GI/Abdominal: Normal Bowel Sounds, Tender Back Exam: Normal Inspection Extremities: Normal Inspection, Other (left LE amputation) Neurological: Alert, Oriented, CN II-XII Intact, Normal Cognition Psychiatric: Anxious Lymphatic: No Adenopathy Course - Vital Signs Last Recorded V/S: Last Vital Signs Temp 35.8 C 04/01/17 10:49 Pulse 77 04/01/17 10:49 Resp 20 04/01/17 10:49 BP 106/62 04/01/17 10:49 Pulse Ox 99 04/01/17 10:49 - Orders/Labs/Meds Orders: Active Orders 24 hr Category Date Time Status CULTURE BLOOD [BC] Stat Lab 04/01/17 10:52 Received CULTURE BLOOD [BC] Stat Lab 04/01/17 11:05 Received LACTIC ACID [CHEM] Stat Lab 04/01/17 11:42 Ordered Sodium Chloride 0.9% [Normal Saline] 1,000 ml Med 04/01/17 10:45 Active IV ASDIRECTED Medication Orders Sodium Chloride (Normal Saline) 1,000 mls @ 50 mls/hr IV ASDIRECTED EH Stop: 04/05/17 10:45 Last Admin: 04/01/17 11:09 Dose: 50 mls/hr Labs: Laboratory Tests 04/01/17 04/01/17 Range/Units 11:05 11:05 WBC 18.6 H (5.0-10.0) 10^3/uL RBC 3.77 L (4.2-5.4) 10^6/uL Hgb 10.8 L (12.0-16.0) g/dL Hct 34.1 L (37.0-47.0) % MCV 90.5 (80-100) fL MCH 28.6 (27.0-34.0) pg MCHC 31.7 L (33.0-35.0) g/dL Plt Count 234 (150-450) 10^3/uL Neut % (Auto) 88.0 H (42.2-75.2) % Lymph % (Auto) 4.1 L (20.5-50.1) % Andrew % (Auto) 7.2 (2-8) % Eos % (Auto) 0.5 L (1.0-3.0) % Baso % (Auto) 0.2 (0.0-1.0) % Add Manual Diff Yes Neutrophils % (Manual) 84 % Band Neutrophils % 4 % Lymphocytes % (Manual) 7 % Monocytes % (Manual) 5 % Sodium 128 L (135-145) mmol/L Potassium 4.9 (3.6-5.0) mmol/L Chloride 87 L (101-111) mmol/L Carbon Dioxide 12.0 L (21.0-31.0) mmol/L Anion Gap 33.9 BUN 95 H (7-18) mg/dL Creatinine 13.2 H (0.6-1.3) mg/dL Est Cr Clr Drug Dosing 4.78 mL/min Estimated GFR (MDRD) 3 BUN/Creatinine Ratio 7.19 Glucose 58 L (74-105) mg/dL Calcium 5.6 L* (8.4-10.2) mg/dl Total Bilirubin 0.9 (0.2-1.0) mg/dL AST 27 (10-42) IU/L ALT 21 (10-60) IU/L Alkaline Phosphatase 130 H (42-121) IU/L Total Protein 8.2 (6.7-8.2) g/dl Albumin 3.4 (3.2-5.5) g/dl Globulin 4.8 Albumin/Globulin Ratio 0.71 Meds: Medications Generic Name Dose Route Start Last Admin Trade Name Freq PRN Reason Stop Dose Admin Sodium Chloride 1,000 mls @ 50 mls/hr 04/01/17 10:45 04/01/17 11:09 Normal Saline IV 04/05/17 10:45 50 mls/hr ASDIRECTED EH Administration Departure - Departure Time of Disposition: 12:00 Disposition: DC/Tfer to Other 70 Condition: Fair Clinical Impression: Hypokalemia, CKD (chronic kidney disease) stage 5, GFR less than 15 ml/min Leukocytosis Qualifiers: Leukocytosis type: unspecified Qualified Code(s): D72.829 - Elevated white blood cell count, unspecified - Discharge Information Forms: ED Department Discharge, Interfacility Transfer EMTALA - My Orders Last 24 Hours: My Active Orders 04/01/17 10:45 Sodium Chloride 0.9% [Normal Saline] 1,000 ml IV ASDIRECTED 04/01/17 10:52 CULTURE BLOOD [BC] Stat 04/01/17 11:05 CULTURE BLOOD [BC] Stat 04/01/17 11:42 LACTIC ACID [CHEM] Stat - Assessment/Plan Last 24 Hours: My Active Orders 04/01/17 10:45 Sodium Chloride 0.9% [Normal Saline] 1,000 ml IV ASDIRECTED 04/01/17 10:52 CULTURE BLOOD [BC] Stat 04/01/17 11:05 CULTURE BLOOD [BC] Stat 04/01/17 11:42 LACTIC ACID [CHEM] Stat
[2017-04-01 10:50] VITALS: BP 106/62
--- NOTE | 2017-04-01 11:30 | CR ---
Clinical history: 31-year-old female clinical "malaise" (hypertensive, diabetic dialysis patient). Interpretation: Upright AP portable chest film confirms chronic atelectasis/fibrosis left lower lobe. Normal cardiac silhouette despite less than optimal inspiratory effort without signs of pulmonary dominic ma or new effusions. Dense calcifications (versus subclavian artery grafts) midline vessels above the aortic arch. No new lobar pneumonia.
== END 2017-04-01 12:52 | disposition other institution (70) ==
LOC: DL.ED 10:35
DX: I12.0 Hypertensive chronic kidney disease with stage 5 chronic kidney disease or end stage renal disease (principal); N18.5 Chronic kidney disease, stage 5; E11.22 Type 2 diabetes mellitus with diabetic chronic kidney disease; D72.829 Elevated white blood cell count, unspecified; E87.6 Hypokalemia; E78.00 Pure hypercholesterolemia, unspecified; Z88.5 Allergy status to narcotic agent; Z79.899 Other long term (current) drug therapy; Z79.4 Long term (current) use of insulin; Z87.01 Personal history of pneumonia (recurrent); F41.9 Anxiety disorder, unspecified; Z87.891 Personal history of nicotine dependence
CPT/HCPCS: 36415; 71010; 80053; 83605; 85025; 87040; 96360; 96361; 99285; J7030; 99284

== ENCOUNTER 2017-05-18 09:25 | Emergency (ER) | payer MEDICARE, MEDICAID ==
--- NOTE | 2017-05-18 09:23 | EDM.PDOC ---
ED HPI GENERAL MEDICAL PROBLEM - General Chief Complaint: General Stated Complaint: AMBULANCE Time Seen by Provider: 05/18/17 09:16 Source of Information: Reports: Patient, EMS Notes Reviewed History Limitations: Reports: No Limitations - History of Present Illness INITIAL COMMENTS - FREE TEXT/NARRATIVE: 41 yo [place] Female brought by Ambulance for Diarrhea and Weakness X 3 days. Pt. denies fever or chills. Pt. last Dialysis was Thursday Onset Date: 05/16/17 Onset Time: 19:00 Duration: Day(s): Location: Reports: Abdomen, Generalized Severity: Moderate Improves with: Reports: None Worsens with: Reports: None Associated Symptoms: Reports: Loss of Appetite, Weakness Abdomen Pain Score (Numeric/FACES): 6 - Related Data Allergies Allergy/AdvReac Type Severity Reaction Status Date / Time codeine AdvReac Mild Stomach Uncoded 04/01/17 10:58 Upset Home Meds: Home Meds Calcium Acetate [Phoslo] 3 cap PO TIDM 12/01/13 [History] Ca Cmb No.1/Vit D3/B-6/FA/B12 [Vitamin D3 1,000 Unit] 1,000 unit PO DAILY [History] Calcium Carbonate [Calcium] 1,000 mg PO TIDMEALS 05/02/14 [History] Carvedilol 12.5 mg PO DAILY 05/02/14 [History] Gabapentin [Neurontin] 300 mg PO DAILY 05/02/14 [History] Insulin Glarg,Human.Rec.Analog [Lantus] 3 units SUBCUT BEDTIME 05/02/14 [History ] Sertraline [Zoloft] 100 mg PO BEDTIME 05/02/14 [History] amLODIPine [Norvasc] 5 mg PO DAILY 05/02/14 [History] Insulin Lispro [HumaLOG] 1 unit SQ TIDAC 08/21/15 [History] Pantoprazole [Protonix] 40 mg PO DAILY 08/21/15 [History] Sodium Polystyrene Sulfonate [Kayexalate] 30 ml PO ASDIRECTED PRN 08/21/15 [ History] Isosorbide Mononitrate [Imdur] 60 mg PO DAILY 02/05/17 [History] Past Medical History HEENT History: Reports: Other (See Below) Other HEENT History: Wears glasses- does not have them there Cardiovascular History: Reports: High Cholesterol, Hypertension Respiratory History: Reports: Other (See Below) Other Respiratory History: Hx of pneumonia with chest tube insertion 2013 Gastrointestinal History: Reports: Other (See Below) Other Gastrointestinal History: Hx C.diff in 2015 Genitourinary History: Reports: Dialysis Other Genitourinary History: Pt states that she does not void in between dialysis txs- Tues, Thurs, Sat are he rscheduled dialysis days [employer]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: Musculoskeletal History: Reports: Amputation Other Musculoskeletal History: Amputation below right elbow, and below left knee , right 4th toe amputation Neurological History: Reports: None Psychiatric History: Reports: Anxiety Endocrine/Metabolic History: Reports: Diabetes, Type II, Vitamin D Deficiency Hematologic History: Reports: Anemia Immunologic History: Reports: None Oncologic (Cancer) History: Reports: None Dermatologic History: Reports: Other (See Below) Other Dermatologic History: hx of Cutaneous Porphyria - Infectious Disease History Infectious Disease History: Reports: C-Difficile, Chicken Pox - Past Surgical History HEENT Surgical History: Reports: Eye Surgery Neurological Surgical History: Reports: None Musculoskeletal Surgical History: Reports: Amputation Oncologic Surgical History: Reports: None Social & Family History - Family History Family Medical History: Noncontributory HEENT: Reports: None Cardiac: Reports: High Cholesterol, Hypertension, [place] Respiratory: Reports: Asthma GI: Reports: GERD : Reports: Dialysis, Renal Disease/Insufficiency OBGYN: Reports: None Musculoskeletal: Reports: Arthritis Neurological: Reports: Seizure Psychiatric: Reports: Anxiety Endocrine/Metabolic: Reports: Diabetes, Type I, Diabetes, type II Hematologic: Reports: None Immunologic: Reports: None Dermatologic: Reports: None Oncologic: Reports: None - Tobacco Use Smoking Status *Q: Former Smoker Years of Tobacco use: 26 Packs/Tins Daily: 0.5 Used Tobacco, but Quit: Yes Month Tobacco Last Used: july Second Hand Smoke Exposure: No - Caffeine Use Caffeine Use: Reports: Coffee, Soda - Alcohol Use Days Per Week of Alcohol Use: 0 - Recreational Drug Use Recreational Drug Use: No - Living Situation & Occupation Living situation: Reports: Single, with Family Occupation: Disabled ED ROS GENERAL - Review of Systems Review Of Systems: See Below Constitutional: Reports: Weakness, Decreased Appetite HEENT: Reports: No Symptoms Respiratory: Reports: No Symptoms Cardiovascular: Reports: No Symptoms Endocrine: Reports: No Symptoms GI/Abdominal: Reports: Diarrhea : Reports: No Symptoms Musculoskeletal: Reports: No Symptoms Skin: Reports: No Symptoms Neurological: Reports: No Symptoms Psychiatric: Reports: No Symptoms Hematologic/Lymphatic: Reports: No Symptoms Immunologic: Reports: No Symptoms ED EXAM, GENERAL - Physical Exam Exam: See Below Exam Limited By: No Limitations General Appearance: Alert, No Apparent Distress, Anxious Eye Exam: Bilateral Eye: EOMI, PERRL Ears: Normal External Exam Nose: Normal Inspection Throat/Mouth: Normal Inspection, Normal Lips Head: Atraumatic Neck: Normal Inspection Respiratory/Chest: No Respiratory Distress, Lungs Clear Cardiovascular: Normal Peripheral Pulses, Regular Rate, Rhythm GI/Abdominal: Normal Bowel Sounds, Soft, Non-Tender Back Exam: Normal Inspection Extremities: Normal Inspection, Other (Left BKA w/ two shallow skin ulcers w/ odor) Neurological: Alert, Oriented, CN II-XII Intact Psychiatric: Anxious Skin Exam: Warm, Wound/Incision (two shallow skin ulcers on Left BKA) Lymphatic: No Adenopathy Course - Vital Signs Last Recorded V/S: Last Vital Signs Temp 36.6 C 05/18/17 09:40 Pulse 103 H 05/18/17 09:40 Resp 24 H 05/18/17 09:40 BP 103/63 05/18/17 09:40 Pulse Ox 93 L 05/18/17 09:40 - Orders/Labs/Meds Orders: Active Orders 24 hr Category Date Time Status CULTURE BLOOD [BC] Stat Lab 05/18/17 09:43 Received CULTURE BLOOD [BC] Stat Lab 05/18/17 10:05 Received Sodium Chloride 0.9% [Normal Saline] 500 ml Med 05/18/17 09:30 Active IV ASDIRECTED Vancomycin [Vancocin] 1 gm Med 05/18/17 11:00 Active Sodium Chloride 0.9% [Normal Saline] 250 ml IV ONETIME cefTRIAXone [Rocephin] 2 gm Med 05/18/17 11:01 Active Sodium Chloride 0.9% [Normal Saline] 100 ml IV ONETIME Medication Orders Sodium Chloride (Normal Saline) 500 mls @ 100 mls/hr IV ASDIRECTED EH Last Admin: 05/18/17 09:57 Dose: 100 mls/hr Vancomycin HCl 1 gm/ Sodium (Chloride) 250 mls @ 166.667 mls/hr IV ONETIME ONE Stop: 05/18/17 12:29 Ceftriaxone Sodium 2 gm/ (Sodium Chloride) 100 mls @ 200 mls/hr IV ONETIME ONE Stop: 05/18/17 11:30 Labs: Laboratory Tests 05/18/17 05/18/17 05/18/17 Range/Units 09:43 09:43 09:43 WBC 20.5 H (5.0-10.0) 10^3/uL RBC 3.66 L (4.2-5.4) 10^6/uL Hgb 10.7 L (12.0-16.0) g/dL Hct 34.8 L (37.0-47.0) % MCV 95.1 D (80-100) fL MCH 29.2 (27.0-34.0) pg MCHC 30.7 L (33.0-35.0) g/dL Plt Count 154 D (150-450) 10^3/uL Neut % (Auto) 95.6 H (42.2-75.2) % Lymph % (Auto) 1.5 L (20.5-50.1) % [place] % (Auto) 2.8 (2-8) % Eos % (Auto) 0.0 L (1.0-3.0) % Baso % (Auto) 0.1 (0.0-1.0) % Add Manual Diff Yes Neutrophils % (Manual) 75 (42-75) % Band Neutrophils % 18 % Lymphocytes % (Manual) 1 L (20-50) % Monocytes % (Manual) 6 (2-8) % Hypochromasia 1+ slight Sodium 129 L (135-145) mmol/L Potassium 4.6 (3.6-5.0) mmol/L Chloride 93 L (101-111) mmol/L Carbon Dioxide 19.0 L (21.0-31.0) mmol/L Anion Gap 21.6 BUN 58 H D (7-18) mg/dL Creatinine 6.3 H D (0.6-1.3) mg/dL Est Cr Clr Drug Dosing 9.94 mL/min Estimated GFR (MDRD) 7 BUN/Creatinine Ratio 9.20 Glucose 137 H (74-105) mg/dL Lactic Acid 1.6 (0.5-2.2) mmol/L Calcium 7.7 L D (8.4-10.2) mg/dl Total Bilirubin 0.7 (0.2-1.0) mg/dL AST 26 (10-42) IU/L ALT 21 (10-60) IU/L Alkaline Phosphatase 122 H (42-121) IU/L Total Protein 8.2 (6.7-8.2) g/dl Albumin 3.0 L (3.2-5.5) g/dl Globulin 5.2 Albumin/Globulin Ratio 0.58 Meds: Medications Generic Name Dose Route Start Last Admin Trade Name Freq PRN Reason Stop Dose Admin Sodium Chloride 500 mls @ 100 mls/hr 05/18/17 09:30 05/18/17 09:57 Normal Saline IV 100 mls/hr ASDIRECTED EH Administration Vancomycin HCl 1 gm/ Sodium 250 mls @ 166.667 mls/hr 05/18/17 11:00 Chloride IV 05/18/17 12:29 ONETIME ONE Ceftriaxone Sodium 2 gm/ 100 mls @ 200 mls/hr 05/18/17 11:01 Sodium Chloride IV 05/18/17 11:30 ONETIME ONE Discontinued Medications Generic Name Dose Route Start Last Admin Trade Name Freq PRN Reason Stop Dose Admin Lorazepam 1 mg 05/18/17 09:31 05/18/17 09:59 Ativan IVPUSH 05/18/17 09:32 1 mg ONETIME ONE Administration Departure - Departure Time of Disposition: 11:07 Disposition: DC/[facility]fer to [facility] 02 Condition: Fair Clinical Impression: CKD (chronic kidney disease) stage V requiring chronic dialysis Sepsis Qualifiers: Sepsis type: sepsis due to unspecified organism Qualified Code(s): A41.9 - Sepsis, unspecified organism Leukocytosis Qualifiers: Leukocytosis type: bandemia Qualified Code(s): D72.825 - Bandemia - Discharge Information Referrals: Tobin Johnson MD [Physician] - Forms: ED Department Discharge, Interfacility Transfer EMTALA - My Orders Last 24 Hours: My Active Orders 05/18/17 09:30 Sodium Chloride 0.9% [Normal Saline] 500 ml IV ASDIRECTED 05/18/17 09:43 CULTURE BLOOD [BC] Stat 05/18/17 10:05 CULTURE BLOOD [BC] Stat 05/18/17 11:00 Vancomycin [Vancocin] 1 gm Sodium Chloride 0.9% [Normal Saline] 250 ml IV ONETIME 05/18/17 11:01 cefTRIAXone [Rocephin] 2 gm Sodium Chloride 0.9% [Normal Saline] 100 ml IV ONETIME - Assessment/Plan Last 24 Hours: My Active Orders 05/18/17 09:30 Sodium Chloride 0.9% [Normal Saline] 500 ml IV ASDIRECTED 05/18/17 09:43 CULTURE BLOOD [BC] Stat 05/18/17 10:05 CULTURE BLOOD [BC] Stat 05/18/17 11:00 Vancomycin [Vancocin] 1 gm Sodium Chloride 0.9% [Normal Saline] 250 ml IV ONETIME 05/18/17 11:01 cefTRIAXone [Rocephin] 2 gm Sodium Chloride 0.9% [Normal Saline] 100 ml IV ONETIME
[2017-05-18] MEDS ORDERED: Sodium Chloride 0.9% 500 ML IV SCH (09:30)
[2017-05-18] MEDS ORDERED: LORazepam 2 MG/ML Syringe IVPUSH ONE (09:31)
--- NOTE | 2017-05-18 10:32 | CR ---
CLINICAL HISTORY: 41-year-old female with clinical "malaise". INTERPRETATION: Abnormal. Upright AP portable chest film confirms developing left lower lobe atelectasis and/or infiltrate when compared to recent 01 April 2017 exam. Clinical aspiration? Normal cardiac silhouette and bony thorax. No cephalization of vascular flow or alveolar edema. No other focal lobar consolidation, lung mass or hilar lymphadenopathy. CONCLUSION: Chronic abnormalities left lung base increased relative to 01 April but no other card iopulmonary abnormality identified despite less than optimal inspiratory effort.
[2017-05-18] MEDS ORDERED: cefTRIAXone 2 GM in Sodium Chloride 0.9% 100 ML IV ONE (11:01)
[2017-05-18 11:09] VITALS: BP 94/47
== END 2017-05-18 12:10 ==
LOC: DL.ED 09:25
DX: A41.9 Sepsis, unspecified organism (principal); D72.825 Bandemia; I12.0 Hypertensive chronic kidney disease with stage 5 chronic kidney disease or end stage renal disease; E11.22 Type 2 diabetes mellitus with diabetic chronic kidney disease; N18.5 Chronic kidney disease, stage 5; E78.00 Pure hypercholesterolemia, unspecified; F41.9 Anxiety disorder, unspecified; Z99.2 Dependence on renal dialysis; Z86.2 Personal history of diseases of the blood and blood-forming organs and certain disorders involving the immune mechanism; Z87.891 Personal history of nicotine dependence; Z79.4 Long term (current) use of insulin; Z79.899 Other long term (current) drug therapy; Z88.5 Allergy status to narcotic agent
CPT/HCPCS: 36415; 71010; 80053; 83605; 85025; 87040; 96361; 96365; 96375; 99285; J0696; J2060; J3370; J7040; J7050

== ENCOUNTER 2017-07-20 20:08 | Emergency (ER) | payer MEDICARE, MEDICAID ==
--- NOTE | 2017-07-20 20:37 | EDM.PDOC ---
ED HPI GENERAL MEDICAL PROBLEM - General Chief Complaint: Respiratory Problem Stated Complaint: BY AMBULANCE Time Seen by Provider: 07/20/17 20:20 Source of Information: Reports: Patient, EMS History Limitations: Reports: No Limitations - History of Present Illness INITIAL COMMENTS - FREE TEXT/NARRATIVE: This 41 yo female patient was brought to the ED by [facility] due to shortness of breath and chills. The patient reports she started to get a chest cold 1 week ago and her symptoms had gotten worse since Thursday. The patient reports she has had increased shortness of breath and chills especially starting this morning. The patient is a dialysis patient with her last run being on Thursday. The patient is scheduled for another run of dialysis tomorrow. 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) Back Pain Score (Numeric/FACES): 6 - Related Data Allergies Allergy/AdvReac Type Severity Reaction Status Date / Time codeine AdvReac Mild Stomach Uncoded 04/01/17 10:58 Upset Home Meds: Home Meds Calcium Acetate [Phoslo] 3 cap PO TIDM 12/01/13 [History] Ca Cmb No.1/Vit D3/B-6/FA/B12 [Vitamin D3 1,000 Unit] 1,000 unit PO DAILY [History] Calcium Carbonate [Calcium] 1,000 mg PO TIDMEALS 05/02/14 [History] Carvedilol 12.5 mg PO DAILY 05/02/14 [History] Gabapentin [Neurontin] 300 mg PO DAILY 05/02/14 [History] Insulin Glarg,Human.Rec.Analog [Lantus] 3 units SUBCUT BEDTIME 05/02/14 [History ] Sertraline [Zoloft] 100 mg PO BEDTIME 05/02/14 [History] amLODIPine [Norvasc] 5 mg PO DAILY 05/02/14 [History] Insulin Lispro [HumaLOG] 1 unit SQ TIDAC 08/21/15 [History] Pantoprazole [Protonix] 40 mg PO DAILY 02/02/16 [History] Sodium Polystyrene Sulfonate [Kayexalate] 30 ml PO ASDIRECTED PRN 08/21/15 [ History] Isosorbide Mononitrate [Imdur] 60 mg PO DAILY 02/05/17 [History] Past Medical History HEENT History: Reports: Other (See Below) Other HEENT History: Wears glasses- does not have them there Cardiovascular History: Reports: High Cholesterol, Hypertension Respiratory History: Reports: Other (See Below) Other Respiratory History: Hx of pneumonia with chest tube insertion 2013 Gastrointestinal History: Reports: Other (See Below) Other Gastrointestinal History: Hx C.diff in 2015 Genitourinary History: Reports: Dialysis Other Genitourinary History: Pt states that she does not void in between dialysis txs- Tues, Th, Sat are he rscheduled dialysis days 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: Musculoskeletal History: Reports: Amputation Other Musculoskeletal History: Amputation below right elbow, and below left knee , right 4th toe amputation Neurological History: Reports: None Other Neuro History: encephalopathy Psychiatric History: Reports: Anxiety Endocrine/Metabolic History: Reports: Diabetes, Type II, Vitamin D Deficiency Hematologic History: Reports: Anemia Immunologic History: Reports: None Oncologic (Cancer) History: Reports: None Dermatologic History: Reports: Other (See Below) Other Dermatologic History: hx of Cutaneous Porphyria - Infectious Disease History Infectious Disease History: Reports: C-Difficile, Chicken Pox - Past Surgical History HEENT Surgical History: Reports: Eye Surgery Neurological Surgical History: Reports: None Musculoskeletal Surgical History: Reports: Amputation Oncologic Surgical History: Reports: None Social & Family History - Family History Family Medical History: Noncontributory HEENT: Reports: None Cardiac: Reports: High Cholesterol, Hypertension, [place] Respiratory: Reports: Asthma GI: Reports: GERD : Reports: Dialysis, Renal Disease/Insufficiency OBGYN: Reports: None Musculoskeletal: Reports: Arthritis Neurological: Reports: Seizure Psychiatric: Reports: Anxiety Endocrine/Metabolic: Reports: Diabetes, Type I, Diabetes, type II Hematologic: Reports: None Immunologic: Reports: None Dermatologic: Reports: None Oncologic: Reports: None - Tobacco Use Smoking Status *Q: Unknown Ever Smoked Years of Tobacco use: 26 Packs/Tins Daily: 0.5 Used Tobacco, but Quit: Yes Month Tobacco Last Used: july Second Hand Smoke Exposure: Yes - Caffeine Use Caffeine Use: Reports: Coffee, Soda - Alcohol Use Days Per Week of Alcohol Use: 0 - Recreational Drug Use Recreational Drug Use: No - Living Situation & Occupation Living situation: Reports: Single, with Family Occupation: Disabled ED ROS GENERAL - Review of Systems Review Of Systems: ROS reveals no pertinent complaints other than HPI. ED EXAM, GENERAL - Physical Exam Exam: See Below Exam Limited By: No Limitations General Appearance: Alert, WD/WN, Moderate Distress, Obese Eye Exam: Bilateral Eye: EOMI, Normal Inspection, PERRL Ears: Normal External Exam, Normal Canal, Hearing Grossly Normal, Normal TMs Nose: Normal Inspection, Normal Mucosa, No Blood Throat/Mouth: Normal Inspection, Normal Lips, Normal Teeth, Normal Gums, Normal Oropharynx, Normal Voice, No Airway Compromise Head: Atraumatic, Normocephalic Neck: Normal Inspection, Supple, Non-Tender, Full Range of Motion Respiratory/Chest: Decreased Breath Sounds (entire left side of chest) Cardiovascular: Normal Peripheral Pulses, Regular Rate, Rhythm, No Edema, No Gallop, No JVD, No Murmur, No Rub GI/Abdominal: Normal Bowel Sounds, Soft, Non-Tender, No Organomegaly, No Distention, No Abnormal Bruit, No Mass (Female) Exam: Deferred Rectal (Female) Exam: Deferred Back Exam: Normal Inspection, Full Range of Motion, NT Extremities: Other (amputation (right below knee)) Neurological: Alert, Oriented, CN II-XII Intact, Normal Cognition Psychiatric: Depressed Mood, Flat Affect Skin Exam: Warm, Dry, Intact, Normal Color, No Rash Lymphatic: No Adenopathy Course - Vital Signs Last Recorded V/S: Last Vital Signs Temp 37.1 C 07/20/17 21:40 Pulse 109 H 07/20/17 21:40 Resp 20 07/20/17 21:40 BP 159/84 H 07/20/17 21:40 Pulse Ox 98 07/20/17 21:40 - Orders/Labs/Meds Orders: Active Orders 24 hr Category Date Time Status Chest 1V Frontal [CR] Urgent Exams 07/20/17 20:29 Taken CULTURE BLOOD [BC] Stat Lab 07/20/17 20:20 Results CULTURE BLOOD [BC] Stat Lab 07/20/17 20:25 Received CULTURE STREP A CONFIRMATION [RM] Stat Lab 07/20/17 20:40 Results DRUG SCREEN URINE BIORAD [URCHEM] Stat Lab 07/20/17 20:24 Uncollected STREP SCRN A RAPID W CULT CONF [RM] Stat Lab 07/20/17 20:40 Results UA W/MICROSCOPIC [URIN] Stat Lab 07/20/17 20:24 Uncollected Levofloxacin/Dextrose 5%-Water [Levaquin in D5W 750 MG/ Med 07/20/17 21:27 Active 150 ML] 750 mg Premix Bag 1 bag IV ONETIME Blood Culture x2 Reflex Set [OM.PC] Stat Oth 07/20/17 20:25 Ordered Medication Orders Levofloxacin/Dextrose 750 mg/ (Premix) 150 mls @ 100 mls/hr IV ONETIME ONE Stop: 07/20/17 22:56 Last Admin: 07/20/17 21:37 Dose: 100 mls/hr Labs: Laboratory Tests 07/20/17 07/20/17 07/20/17 Range/Units 20:25 20:25 20:25 WBC 10.0 (5.0-10.0) 10^3/uL RBC 3.78 L (4.2-5.4) 10^6/uL Hgb 11.4 L (12.0-16.0) g/dL Hct 37.8 (37.0-47.0) % MCV 100.0 D (80-100) fL MCH 30.2 (27.0-34.0) pg MCHC 30.2 L (33.0-35.0) g/dL Plt Count 167 (150-450) 10^3/uL Neut % (Auto) 87.1 H (42.2-75.2) % Lymph % (Auto) 7.0 L (20.5-50.1) % [place] % (Auto) 3.5 (2-8) % Eos % (Auto) 2.3 (1.0-3.0) % Baso % (Auto) 0.1 (0.0-1.0) % Add Manual Diff Yes Neutrophils % (Manual) 67 (42-75) % Band Neutrophils % 14 % Lymphocytes % (Manual) 12 L (20-50) % Atypical Lymphs % 0 % Monocytes % (Manual) 6 (2-8) % Eosinophils % (Manual) 1 (1-3) % Basophils % (Manual) 0 D-Dimer, Quantitative (0-400) ng/mL Sodium 133 L (135-145) mmol/L Potassium 5.1 H (3.6-5.0) mmol/L Chloride 94 L (101-111) mmol/L Carbon Dioxide 20.0 L (21.0-31.0) mmol/L Anion Gap 24.1 BUN 60 H (7-18) mg/dL Creatinine 6.5 H (0.6-1.3) mg/dL Est Cr Clr Drug Dosing 9.64 mL/min Estimated GFR (MDRD) 7 BUN/Creatinine Ratio 9.23 Glucose 135 H (74-105) mg/dL Lactic Acid 1.7 (0.5-2.2) mmol/L Calcium 6.9 L (8.4-10.2) mg/dl Total Bilirubin 0.7 (0.2-1.0) mg/dL AST 21 (10-42) IU/L ALT 14 (10-60) IU/L Alkaline Phosphatase 134 H (42-121) IU/L Total Protein 9.2 H (6.7-8.2) g/dl Albumin 3.5 (3.2-5.5) g/dl Globulin 5.7 Albumin/Globulin Ratio 0.61 /08/06 Range/Units 20:25 WBC (5.0-10.0) 10^3/uL RBC (4.2-5.4) 10^6/uL Hgb (12.0-16.0) g/dL Hct (37.0-47.0) % MCV (80-100) fL MCH (27.0-34.0) pg MCHC (33.0-35.0) g/dL Plt Count (150-450) 10^3/uL Neut % (Auto) (42.2-75.2) % Lymph % (Auto) (20.5-50.1) % [place] % (Auto) (2-8) % Eos % (Auto) (1.0-3.0) % Baso % (Auto) (0.0-1.0) % Add Manual Diff Neutrophils % (Manual) (42-75) % Band Neutrophils % % Lymphocytes % (Manual) (20-50) % Atypical Lymphs % % Monocytes % (Manual) (2-8) % Eosinophils % (Manual) (1-3) % Basophils % (Manual) D-Dimer, Quantitative 586 H (0-400) ng/mL Sodium (135-145) mmol/L Potassium (3.6-5.0) mmol/L Chloride (101-111) mmol/L Carbon Dioxide (21.0-31.0) mmol/L Anion Gap BUN (7-18) mg/dL Creatinine (0.6-1.3) mg/dL Est Cr Clr Drug Dosing mL/min Estimated GFR (MDRD) BUN/Creatinine Ratio Glucose (74-105) mg/dL Lactic Acid (0.5-2.2) mmol/L Calcium (8.4-10.2) mg/dl Total Bilirubin (0.2-1.0) mg/dL AST (10-42) IU/L ALT (10-60) IU/L Alkaline Phosphatase (42-121) IU/L Total Protein (6.7-8.2) g/dl Albumin (3.2-5.5) g/dl Globulin Albumin/Globulin Ratio Meds: Medications Generic Name Dose Route Start Last Admin Trade Name Freq PRN Reason Stop Dose Admin Levofloxacin/Dextrose 750 mg/ 150 mls @ 100 mls/hr 07/20/17 21:27 07/20/17 21 :37 Premix IV 07/20/17 22:56 100 mls/hr ONETIME ONE Administration Departure - Departure Time of Disposition: 22:39 Disposition: Home, Self-Care 01 Condition: Fair Clinical Impression: Acute bronchitis Qualifiers: Bronchitis organism: unspecified organism Qualified Code(s): J20.9 - Acute bronchitis, unspecified - Discharge Information Instructions: Acute Bronchitis, [id number] Forms: ED Department Discharge Care Plan Goals: The patient was advised of the examination, lab and x-ray results during the visit. the patient was given an IV dose of Levaquin while in the ED. The patient was discharged with a script for Levaquin (500 mg) #7 to take 1 by mouth daily for 7 days. The patient should follow-up with her primary care facility this week for continued evaluation and further management. If the patient has any additional symptoms or concerns, the patient should either visit her primary care facility or return to the emergency department. - My Orders Last 24 Hours: My Active Orders 07/20/17 20:20 CULTURE BLOOD [BC] Stat 07/20/17 20:24 DRUG SCREEN URINE BIORAD [URCHEM] Stat UA W/MICROSCOPIC [URIN] Stat 07/20/17 20:25 CULTURE BLOOD [BC] Stat Blood Culture x2 Reflex Set [OM.PC] Stat 07/20/17 20:29 Chest 1V Frontal [CR] Urgent 07/20/17 20:40 CULTURE STREP A CONFIRMATION [RM] Stat STREP SCRN A RAPID W CULT CONF [RM] Stat 07/20/17 21:27 Levofloxacin/Dextrose 5%-Water [Levaquin in D5W 750 MG/150 ML] 750 mg Premix Bag 1 bag IV ONETIME - Assessment/Plan Last 24 Hours: My Active Orders 07/20/17 20:20 CULTURE BLOOD [BC] Stat 07/20/17 20:24 DRUG SCREEN URINE BIORAD [URCHEM] Stat UA W/MICROSCOPIC [URIN] Stat 07/20/17 20:25 CULTURE BLOOD [BC] Stat Blood Culture x2 Reflex Set [OM.PC] Stat 07/20/17 20:29 Chest 1V Frontal [CR] Urgent 07/20/17 20:40 CULTURE STREP A CONFIRMATION [RM] Stat STREP SCRN A RAPID W CULT CONF [RM] Stat 07/20/17 21:27 Levofloxacin/Dextrose 5%-Water [Levaquin in D5W 750 MG/150 ML] 750 mg Premix Bag 1 bag IV ONETIME
[2017-07-20 20:54] LABS: ANION GAP 24.1
[2017-07-20] MEDS ORDERED: Levofloxacin/Dextrose 5%-Water 750 MG in Premix Bag 1 BAG IV ONE (21:27)
[2017-07-20 23:05] VITALS: BP 141/69
== END 2017-07-20 23:22 | disposition home or self-care (01) ==
LOC: DL.ED 20:08
DX: J20.9 Acute bronchitis, unspecified (principal); I10 Essential (primary) hypertension; E78.00 Pure hypercholesterolemia, unspecified; E11.9 Type 2 diabetes mellitus without complications; Z87.891 Personal history of nicotine dependence; Z79.4 Long term (current) use of insulin; Z79.899 Other long term (current) drug therapy; Z99.2 Dependence on renal dialysis; Z88.5 Allergy status to narcotic agent
CPT/HCPCS: 36415; 71045; 80053; 83605; 85025; 85379; 87040; 87081; 87430; 87804; 96365; 99283; J1956; 99284

== ENCOUNTER 2017-09-19 15:54 | Emergency (ER) | payer MEDICARE, MEDICAID ==
[2017-09-19 16:09] VITALS: BP 113/57
== END 2017-09-19 16:43 | disposition left against medical advice (07) ==
LOC: DL.ED 15:54
DX: Z53.21 Procedure and treatment not carried out due to patient leaving prior to being seen by health care provider (principal)

== ENCOUNTER 2017-09-26 14:49 | Emergency (ER) | payer MEDICARE, MEDICAID ==
[2017-09-26] MEDS ORDERED: Albuterol/Ipratropium 3.0-0.5 MG/3 ML Neb Soln NEB ONE (15:32)
[2017-09-26] MEDS ORDERED: Levofloxacin 250 MG Tab PO ONE (16:32)
[2017-09-26] MEDS ORDERED: Benzonatate 100 MG Cap PO ONE (16:32)
[2017-09-26 16:52] VITALS: BP 165/81
--- NOTE | 2017-09-26 18:08 | EDM.PDOC ---
Scribed by Rachel Webster 09/26/17 [id number] for Madi Callejas MD ED HPI GENERAL MEDICAL PROBLEM - General Chief Complaint: Respiratory Problem Stated Complaint: COLD [id number] Time Seen by Provider: 09/26/17 15:08 Source of Information: Reports: Patient, RN, RN Notes Reviewed History Limitations: Reports: No Limitations - History of Present Illness INITIAL COMMENTS - FREE TEXT/NARRATIVE: Arrives from dialysis by wheelchair with c/o productive cough x1 week. Pt states she was seen in clinic [address] Saldana and treated for bronchitis with Amoxicillin. Pt has been using an albuterol inhaler, but doesn' t think it is helping. Denies fever, chills, chest pain, abd. pain, edema, N/V/D /C, sore throat, or rash. 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) Upper Abdomen Pain Score (Numeric/FACES): 5 - Related Data Allergies Allergy/AdvReac Type Severity Reaction Status Date / Time codeine AdvReac Mild Stomach Uncoded 09/19/17 16:09 Upset Home Meds: Home Meds Calcium Acetate [Phoslo] 3 cap PO TIDM 12/01/13 [History] Ca Cmb No.1/Vit D3/B-6/FA/B12 [Vitamin D3 1,000 Unit] 1,000 unit PO DAILY [History] Calcium Carbonate [Calcium] 1,000 mg PO TIDMEALS 05/02/14 [History] Carvedilol 12.5 mg PO DAILY 05/02/14 [History] Gabapentin [Neurontin] 300 mg PO DAILY 05/02/14 [History] Insulin Glarg,Human.Rec.Analog [Lantus] 3 units SUBCUT BEDTIME 05/02/14 [History ] Sertraline [Zoloft] 100 mg PO BEDTIME 05/02/14 [History] amLODIPine [Norvasc] 5 mg PO DAILY 05/02/14 [History] Insulin Lispro [HumaLOG] 1 unit SQ TIDAC 08/21/15 [History] Pantoprazole [Protonix] 40 mg PO DAILY 08/21/15 [History] Sodium Polystyrene Sulfonate [Kayexalate] 30 ml PO ASDIRECTED PRN 08/21/15 [ History] Isosorbide Mononitrate [Imdur] 60 mg PO DAILY 02/05/17 [History] Past Medical History HEENT History: Reports: Other (See Below) Other HEENT History: Wears glasses- does not have them there Cardiovascular History: Reports: High Cholesterol, Hypertension Respiratory History: Reports: Other (See Below) Other Respiratory History: Hx of pneumonia with chest tube insertion 2013 Gastrointestinal History: Reports: Other (See Below) Other Gastrointestinal History: Hx C.diff in 2015 Genitourinary History: Reports: Dialysis Other Genitourinary History: Pt states that she does not void in between dialysis txs- Tues, Thurs, Sat are he rscheduled dialysis days [employer] History: Reports: Musculoskeletal History: Reports: Amputation Other Musculoskeletal History: Amputation below right elbow, and below left knee , right 4th toe amputation Neurological History: Reports: None Other Neuro History: encephalopathy Psychiatric History: Reports: Anxiety Endocrine/Metabolic History: Reports: Diabetes, Type II, Vitamin D Deficiency Hematologic History: Reports: Anemia Immunologic History: Reports: None Oncologic (Cancer) History: Reports: None Dermatologic History: Reports: Other (See Below) Other Dermatologic History: hx of Cutaneous Porphyria - Infectious Disease History Infectious Disease History: Reports: C-Difficile, Chicken Pox - Past Surgical History HEENT Surgical History: Reports: Eye Surgery Neurological Surgical History: Reports: None Musculoskeletal Surgical History: Reports: Amputation Oncologic Surgical History: Reports: None Social & Family History - Family History Family Medical History: Noncontributory HEENT: Reports: None Cardiac: Reports: High Cholesterol, Hypertension, [place] Respiratory: Reports: Asthma GI: Reports: GERD : Reports: Dialysis, Renal Disease/Insufficiency OBGYN: Reports: None Musculoskeletal: Reports: Arthritis Neurological: Reports: Seizure Psychiatric: Reports: Anxiety Endocrine/Metabolic: Reports: Diabetes, Type I, Diabetes, type II Hematologic: Reports: None Immunologic: Reports: None Dermatologic: Reports: None Oncologic: Reports: None - Tobacco Use Smoking Status *Q: Never Smoker Years of Tobacco use: 26 Packs/Tins Daily: 0.5 Used Tobacco, but Quit: Yes Month Tobacco Last Used: july Second Hand Smoke Exposure: No - Caffeine Use Caffeine Use: Reports: Coffee, Soda - Alcohol Use Days Per Week of Alcohol Use: 0 - Recreational Drug Use Recreational Drug Use: No - Living Situation & Occupation Living situation: Reports: Single, with Family Occupation: Disabled ED ROS GENERAL - Review of Systems Review Of Systems: ROS reveals no pertinent complaints other than HPI. ED EXAM, GENERAL - Physical Exam Exam: See Below Exam Limited By: No Limitations General Appearance: Alert, No Apparent Distress, Other (chronically ill appearing) Eye Exam: Bilateral Eye: Normal Inspection Ears: Normal External Exam, Hearing Grossly Normal Nose: No Blood, Nasal Drainage (mild ) Throat/Mouth: Normal Inspection, Normal Lips, Normal Oropharynx, Normal Voice, No Airway Compromise Head: Atraumatic, Normocephalic Neck: Normal Inspection, Supple, Non-Tender, Full Range of Motion Respiratory/Chest: No Respiratory Distress, No Accessory Muscle Use, Chest Non- Tender, Decreased Breath Sounds, Crackles, Wheezing, Other (deep moist cough with yellow sputum production). No: Rales, Rhonchi, Stridor Cardiovascular: Regular Rate, Rhythm, No Edema GI/Abdominal: Normal Bowel Sounds, Soft, Non-Tender, No Distention Back Exam: Normal Inspection Neurological: Alert, Oriented, No Motor/Sensory Deficits Psychiatric: Normal Mood Skin Exam: Warm, Dry, Intact Course - Vital Signs Last Recorded V/S: Last Vital Signs Temp 36.6 C 09/26/17 16:51 Pulse 88 09/26/17 16:51 Resp 16 09/26/17 16:51 BP 165/81 H 09/26/17 16:51 Pulse Ox 98 09/26/17 16:51 - Orders/Labs/Meds Orders: Active Orders 24 hr Category Date Time Status RT Aerosol Therapy [RC] ASDIRECTED Care 09/26/17 15:32 Active CULTURE BLOOD [BC] Stat Lab 09/26/17 15:51 Received Labs: Laboratory Tests 09/26/17 09/26/17 09/26/17 Range/Units 15:51 15:51 15:51 WBC 8.6 (5.0-10.0) 10^3/uL RBC 3.52 L (4.2-5.4) 10^6/uL Hgb 10.5 L (12.0-16.0) g/dL Hct 33.1 L (37.0-47.0) % MCV 94.0 D (80-100) fL MCH 29.8 (27.0-34.0) pg MCHC 31.7 L (33.0-35.0) g/dL Plt Count 225 (150-450) 10^3/uL Neut % (Auto) 85.3 H (42.2-75.2) % Lymph % (Auto) 9.0 L (20.5-50.1) % [place] % (Auto) 5.0 (2-8) % Eos % (Auto) 0.5 L (1.0-3.0) % Baso % (Auto) 0.2 (0.0-1.0) % Sodium 133 L (135-145) mmol/L Potassium 3.1 L D (3.6-5.0) mmol/L Chloride 95 L (101-111) mmol/L Carbon Dioxide 27.0 (21.0-31.0) mmol/L Anion Gap 14.1 BUN 21 H D (7-18) mg/dL Creatinine 3.0 H D (0.6-1.3) mg/dL Est Cr Clr Drug Dosing 20.66 mL/min Estimated GFR (MDRD) 17 BUN/Creatinine Ratio 7.00 Glucose 218 H (74-105) mg/dL Lactic Acid 2.0 (0.5-2.2) mmol/L Calcium 8.7 D (8.4-10.2) mg/dl Total Bilirubin 0.6 (0.2-1.0) mg/dL AST 18 (10-42) IU/L ALT 9 L (10-60) IU/L Alkaline Phosphatase 117 (42-121) IU/L Total Protein 8.7 H (6.7-8.2) g/dl Albumin 3.1 L (3.2-5.5) g/dl Globulin 5.6 Albumin/Globulin Ratio 0.55 Meds: Medications Discontinued Medications Generic Name Dose Route Start Last Admin Trade Name Freq PRN Reason Stop Dose Admin Albuterol/Ipratropium 3 ml 09/26/17 15:32 09/26/17 15:39 Duoneb 3.0-0.5 Mg/3 Ml NEB 09/26/17 15:33 3 ml ONETIME ONE Administration Benzonatate 100 mg 09/26/17 16:32 09/26/17 16:47 Tessalon Perles PO 09/26/17 16:33 100 mg ONETIME ONE Administration Levofloxacin 250 mg 09/26/17 16:32 09/26/17 16:47 Levaquin PO 09/26/17 16:33 250 mg ONETIME ONE Administration - Radiology Interpretation Free Text/Narrative:: Chest x-ray: Chronic abnormalities left lung base increased relative to 01 April, but no other cardiopulmonary abnormality identified despite less than optimal inspiratory effort. See rad report. Departure - Departure Time of Disposition: 16:33 Disposition: Home, Self-Care 01 Condition: Fair Clinical Impression: Bronchitis with bronchospasm - Discharge Information Instructions: Bronchospasm, Adult, Acute Bronchitis, Adult, [id number] Forms: ED Department Discharge Additional Instructions: RX: [id number]. Take every other day. RX: Tessalon Perles 200mg. Stop the Amoxicillin. Follow up with your primary doctor 3 to 4 days if not improved. - My Orders Last 24 Hours: My Active Orders 09/26/17 15:32 RT Aerosol Therapy [RC] ASDIRECTED 09/26/17 15:51 CULTURE BLOOD [BC] Stat - Assessment/Plan Last 24 Hours: My Active Orders 09/26/17 15:32 RT Aerosol Therapy [RC] ASDIRECTED 09/26/17 15:51 CULTURE BLOOD [BC] Stat I have read and agree with the documentation that has been completed regarding this visit. By signing this record, I attest that the documentation was completed in my physical presence and is an accurate record of the encounter.
== END 2017-09-26 16:54 | disposition home or self-care (01) ==
LOC: DL.ED 14:49
DX: J40 Bronchitis, not specified as acute or chronic (principal); J98.01 Acute bronchospasm; I10 Essential (primary) hypertension; E78.00 Pure hypercholesterolemia, unspecified; E11.9 Type 2 diabetes mellitus without complications; Z79.4 Long term (current) use of insulin; Z79.899 Other long term (current) drug therapy; Z99.2 Dependence on renal dialysis; Z88.5 Allergy status to narcotic agent; Z87.891 Personal history of nicotine dependence
CPT/HCPCS: 36415; 71045; 80053; 83605; 85025; 87040; 99284; A9270; 99283

== ENCOUNTER 2017-10-08 15:10 | Emergency (ER) | payer MEDICARE, MEDICAID ==
[2017-10-08 15:47] VITALS: BP 145/79
[2017-10-08] MEDS ORDERED: Acetaminophen/HYDROcodone 325-5 MG Tab PO ONE (15:50)
--- NOTE | 2017-10-08 16:00 | EDM.PDOC ---
ED HPI GENERAL MEDICAL PROBLEM - General Chief Complaint: Lower Extremity Injury/Pain Stated Complaint: PAINS IN LEGS [id number] Time Seen by Provider: 10/08/17 15:50 Source of Information: Reports: Patient, Old Records, RN, RN Notes Reviewed History Limitations: Reports: No Limitations - History of Present Illness INITIAL COMMENTS - FREE TEXT/NARRATIVE: Tejal is a 42 yo female who presents to the ED today due to a 3 week hx of right leg pain. She denies injury to her leg. Reports that the pain is from her hip down to the middle of her chambers. She did go to dialysis today and noticed her pain was worse after that. She reports that she has been taking her hydrocodone as prescribed per her PCP with minimal relief. Reports pain is worse with movement and weight bearing. 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 ) Right Leg Pain Score (Numeric/FACES): 8 - Related Data Allergies Allergy/AdvReac Type Severity Reaction Status Date / Time codeine AdvReac Mild Stomach Uncoded 09/19/17 16:09 Upset Home Meds: Home Meds Calcium Acetate [Phoslo] 3 cap PO TIDM 12/01/13 [History] Ca Cmb No.1/Vit D3/B-6/FA/B12 [Vitamin D3 1,000 Unit] 1,000 unit PO DAILY [History] Calcium Carbonate [Calcium] 1,000 mg PO TIDMEALS 05/02/14 [History] Carvedilol 12.5 mg PO DAILY 05/02/14 [History] Gabapentin [Neurontin] 300 mg PO DAILY 05/02/14 [History] Insulin Glarg,Human.Rec.Analog [Lantus] 3 units SUBCUT BEDTIME 05/02/14 [History ] Sertraline [Zoloft] 100 mg PO BEDTIME 05/02/14 [History] amLODIPine [Norvasc] 5 mg PO DAILY 05/02/14 [History] Insulin Lispro [HumaLOG] 1 unit SQ TIDAC 08/21/15 [History] Pantoprazole [Protonix] 40 mg PO DAILY 08/21/15 [History] Sodium Polystyrene Sulfonate [Kayexalate] 30 ml PO ASDIRECTED PRN 08/21/15 [ History] Isosorbide Mononitrate [Imdur] 60 mg PO DAILY 02/05/17 [History] Hydrocodone/Acetaminophen [Hydrocodon-Acetaminophen 5-325] 1 each PO TID [History] Past Medical History HEENT History: Reports: Other (See Below) Other HEENT History: Wears glasses- does not have them there Cardiovascular History: Reports: High Cholesterol, Hypertension Respiratory History: Reports: Other (See Below) Other Respiratory History: Hx of pneumonia with chest tube insertion 2013 Gastrointestinal History: Reports: Other (See Below) Other Gastrointestinal History: Hx C.diff in 2015 Genitourinary History: Reports: Dialysis Other Genitourinary History: Pt states that she does not void in between dialysis txs- Tues, Thurs, Sat are he rscheduled dialysis days 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: Musculoskeletal History: Reports: Amputation Other Musculoskeletal History: Amputation below right elbow, and below left knee , right 4th toe amputation Neurological History: Reports: None Other Neuro History: encephalopathy Psychiatric History: Reports: Anxiety Endocrine/Metabolic History: Reports: Diabetes, Type II, Vitamin D Deficiency Hematologic History: Reports: Anemia Immunologic History: Reports: None Oncologic (Cancer) History: Reports: None Dermatologic History: Reports: Other (See Below) Other Dermatologic History: hx of Cutaneous Porphyria - Infectious Disease History Infectious Disease History: Reports: C-Difficile, Chicken Pox - Past Surgical History HEENT Surgical History: Reports: Eye Surgery Neurological Surgical History: Reports: None Musculoskeletal Surgical History: Reports: Amputation Oncologic Surgical History: Reports: None Social & Family History - Family History Family Medical History: Noncontributory HEENT: Reports: None Cardiac: Reports: High Cholesterol, Hypertension, [place] Respiratory: Reports: Asthma GI: Reports: GERD : Reports: Dialysis, Renal Disease/Insufficiency OBGYN: Reports: None Musculoskeletal: Reports: Arthritis Neurological: Reports: Seizure Psychiatric: Reports: Anxiety Endocrine/Metabolic: Reports: Diabetes, Type I, Diabetes, type II Hematologic: Reports: None Immunologic: Reports: None Dermatologic: Reports: None Oncologic: Reports: None - Tobacco Use Smoking Status *Q: Never Smoker Years of Tobacco use: 26 Packs/Tins Daily: 0.5 Used Tobacco, but Quit: Yes Month/Year Tobacco Last Used: july Second Hand Smoke Exposure: No - Caffeine Use Caffeine Use: Reports: Coffee, Soda - Alcohol Use Days Per Week of Alcohol Use: 0 - Recreational Drug Use Recreational Drug Use: No - Living Situation & Occupation Living situation: Reports: Single, with Family Occupation: Disabled Review of Systems - Review of Systems Review Of Systems: ROS reveals no pertinent complaints other than HPI. ED EXAM, GENERAL - Physical Exam Exam: See Below Exam Limited By: No Limitations General Appearance: Alert, WD/WN, No Apparent Distress Eye Exam: Bilateral Eye: PERRL Ears: Normal External Exam, Normal Canal, Hearing Grossly Normal, Normal TMs Ear Exam: Bilateral Ear: Auricle Normal, Canal Normal, TM normal Nose: Normal Inspection, Normal Mucosa, No Blood Throat/Mouth: Normal Inspection, Normal Lips, Normal Teeth, Normal Gums, Normal Oropharynx, Normal Voice, No Airway Compromise Head: Atraumatic, Normocephalic Neck: Normal Inspection, Supple, Non-Tender, Full Range of Motion Respiratory/Chest: No Respiratory Distress, Lungs Clear, Normal Breath Sounds, No Accessory Muscle Use, Chest Non-Tender Cardiovascular: Normal Peripheral Pulses, Regular Rate, Rhythm, No Edema, No Gallop, No JVD, No Murmur, No Rub GI/Abdominal: Normal Bowel Sounds, Soft, Non-Tender, No Organomegaly, No Distention, No Abnormal Bruit, No Mass (Female) Exam: Deferred Rectal (Female) Exam: Deferred Back Exam: Normal Inspection, Full Range of Motion, NT Extremities: No Pedal Edema (Patient has a LBKA. Right leg tenderness around patella. Knee is slightly warm on palpation. No redness noted. No drainage. Patient has pain on pasive ROM both flexon and extension. ), Normal Capillary Refill Neurological: Alert, Oriented, CN II-XII Intact, Normal Cognition, Normal Gait, Normal Reflexes, No Motor/Sensory Deficits Psychiatric: Normal Affect, Normal Mood Skin Exam: Warm, Dry, Intact, Normal Color, No Rash Lymphatic: No Adenopathy Course - Vital Signs Last Recorded V/S: Last Vital Signs Temp 98.4 F 10/08/17 15:46 Pulse 103 H 10/08/17 15:46 Resp 20 10/08/17 15:46 BP 145/79 H 10/08/17 15:46 Pulse Ox 99 10/08/17 15:46 - Orders/Labs/Meds Labs: Laboratory Tests 10/08/17 Range/Units 15:58 WBC 7.6 (5.0-10.0) 10^3/uL RBC 3.48 L (4.2-5.4) 10^6/uL Hgb 10.3 L (12.0-16.0) g/dL Hct 32.9 L (37.0-47.0) % MCV 94.5 (80-100) fL MCH 29.6 (27.0-34.0) pg MCHC 31.3 L (33.0-35.0) g/dL Plt Count 251 (150-450) 10^3/uL Neut % (Auto) 85.0 H (42.2-75.2) % Lymph % (Auto) 6.2 L (20.5-50.1) % [place] % (Auto) 7.8 (2-8) % Eos % (Auto) 0.7 L (1.0-3.0) % Baso % (Auto) 0.3 (0.0-1.0) % Meds: Medications Discontinued Medications Generic Name Dose Route Start Last Admin Trade Name Freq PRN Reason Stop Dose Admin Hydrocodone Bitart/Acetaminophen 1 tab 10/08/17 15:50 10/08/17 16:05 [place] 325-5 Mg PO 10/08/17 15:51 1 tab ONETIME ONE Administration Departure - Departure Time of Disposition: 16:20 Disposition: Home, Self-Care 01 Clinical Impression: Leg pain, right - Discharge Information Forms: ED Department Discharge Care Plan Goals: Continue your regular prescription medications. Follow-up with your primary care facility as needed. Rest leg. You may use ice or heat to your leg which every affords you the best relief in your pain. Patient verbalizes understanding. Denies any further questions or concerns.
== END 2017-10-08 16:30 | disposition home or self-care (01) ==
LOC: DL.ED 15:10
DX: M79.604 Pain in right leg (principal); E78.00 Pure hypercholesterolemia, unspecified; I10 Essential (primary) hypertension; E11.9 Type 2 diabetes mellitus without complications; Z79.4 Long term (current) use of insulin; Z88.5 Allergy status to narcotic agent; Z79.899 Other long term (current) drug therapy; Z87.891 Personal history of nicotine dependence
CPT/HCPCS: 36415; 85025; 99283; A9270

== ENCOUNTER 2018-04-24 12:31 | Emergency (ER) | payer MEDICARE, MEDICAID ==
[2018-04-24] MEDS ORDERED: Sodium Chloride 0.9% 10 ML Syringe FLUSH PRN (13:10)
[2018-04-24] MEDS ORDERED: HYDROmorphone 1 MG/ML Syringe IVPUSH ONE ×2 (13:12→15:56)
[2018-04-24 14:00] LABS: ANION GAP 12.6
[2018-04-24 14:30] VITALS: BP 140/60
--- NOTE | 2018-04-24 15:34 | EDM.PDOC ---
Scribed by Rachel Webster 04/24/18 1524 for Madi Callejas MD ED HPI GENERAL MEDICAL PROBLEM - General Chief Complaint: General Stated Complaint: RT LEG, VERY SORE Time Seen by Provider: 04/24/18 12:36 Source of Information: Reports: Patient, RN, RN Notes Reviewed History Limitations: Reports: No Limitations - History of Present Illness INITIAL COMMENTS - FREE TEXT/NARRATIVE: Patient presented to ER with complaint of severe right knee pain and swelling. Patient states the knee feels hot and feels that it is under pressure from the inside. She was seen recently at [facility] and states that they put a needle in her knee and drained fluid out, after which the swelling was improved but the pain did not go away. She had an appointment at an [facility] on April 19, because the knee swelling had returned. She states the orthopedic doctor wanted to put a needle in her knee again but she refused. Now she states it is much worse and she would like to be transferred to [place] to have this taken care off. She denies any fall or injury. She is unsure if she has had any fever or chills. Onset: Gradual Duration: Getting Worse Location: Reports: Lower Extremity, Right Quality: Reports: Ache, Pressure Severity: Severe Improves with: Reports: None Worsens with: Reports: Movement Associated Symptoms: Reports: No Other Symptoms - Related Data Allergies Allergy/AdvReac Type Severity Reaction Status Date / Time codeine AdvReac Mild Stomach Uncoded 04/24/18 12:49 Upset Home Meds: Home Meds Calcium Acetate [Phoslo] 3 cap PO TIDM 12/01/13 [History] Ca Cmb No.1/Vit D3/B-6/FA/B12 [Vitamin D3 1,000 Unit] 1,000 unit PO DAILY [History] Calcium Carbonate [Calcium] 1,000 mg PO TIDMEALS 05/02/14 [History] Carvedilol 12.5 mg PO DAILY 05/02/14 [History] Gabapentin [Neurontin] 300 mg PO DAILY 05/02/14 [History] Insulin Glarg,Human.Rec.Analog [Lantus] 3 units SUBCUT BEDTIME 05/02/14 [History ] Sertraline [Zoloft] 100 mg PO BEDTIME 10/14/14 [History] amLODIPine [Norvasc] 5 mg PO DAILY 05/02/14 [History] Insulin Lispro [HumaLOG] 1 unit SQ TIDAC 08/21/15 [History] Pantoprazole [Protonix] 40 mg PO DAILY 08/21/15 [History] Sodium Polystyrene Sulfonate [Kayexalate] 30 ml PO ASDIRECTED PRN 08/21/15 [ History] Isosorbide Mononitrate [Imdur] 60 mg PO DAILY 02/05/17 [History] Hydrocodone/Acetaminophen [Hydrocodon-Acetaminophen 5-325] 1 each PO TID [History] Past Medical History HEENT History: Reports: Other (See Below) Other HEENT History: Wears glasses- does not have them there Cardiovascular History: Reports: High Cholesterol, Hypertension Respiratory History: Reports: Other (See Below) Other Respiratory History: Hx of pneumonia with chest tube insertion 2013 Gastrointestinal History: Reports: Other (See Below) Other Gastrointestinal History: Hx C.diff in 2015 Genitourinary History: Reports: Dialysis Other Genitourinary History: Pt states that she does not void in between dialysis txs- Tues, Thurs, Sat are he rscheduled dialysis days [employer]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: Musculoskeletal History: Reports: Amputation Other Musculoskeletal History: Amputation below right elbow, and below left knee , right 4th toe amputation Neurological History: Reports: None Other Neuro History: encephalopathy Psychiatric History: Reports: Anxiety Endocrine/Metabolic History: Reports: Diabetes, Type II, Vitamin D Deficiency Hematologic History: Reports: Anemia Immunologic History: Reports: None Oncologic (Cancer) History: Reports: None Dermatologic History: Reports: Other (See Below) Other Dermatologic History: hx of Cutaneous Porphyria - Infectious Disease History Infectious Disease History: Reports: C-Difficile, Chicken Pox - Past Surgical History HEENT Surgical History: Reports: Eye Surgery Neurological Surgical History: Reports: None Musculoskeletal Surgical History: Reports: Amputation Oncologic Surgical History: Reports: None Social & Family History - Family History Family Medical History: Noncontributory HEENT: Reports: None Cardiac: Reports: High Cholesterol, Hypertension, CT Respiratory: Reports: Asthma GI: Reports: GERD : Reports: Dialysis, Renal Disease/Insufficiency OBGYN: Reports: None Musculoskeletal: Reports: Arthritis Neurological: Reports: Seizure Psychiatric: Reports: Anxiety Endocrine/Metabolic: Reports: Diabetes, Type I, Diabetes, type II Hematologic: Reports: None Immunologic: Reports: None Dermatologic: Reports: None Oncologic: Reports: None - Caffeine Use Caffeine Use: Reports: Tea - Living Situation & Occupation Living situation: Reports: Single, with Family Occupation: Disabled ED ROS GENERAL - Review of Systems Review Of Systems: ROS reveals no pertinent complaints other than HPI. ED EXAM, GENERAL - Physical Exam Exam: See Below Exam Limited By: No Limitations General Appearance: Alert, Anxious, Mild Distress (pain), Other (chronically ill appearing) Throat/Mouth: No Airway Compromise Head: Atraumatic, Normocephalic Neck: Normal Inspection Respiratory/Chest: No Respiratory Distress, Lungs Clear, No Accessory Muscle Use , Decreased Breath Sounds Cardiovascular: Regular Rate, Rhythm GI/Abdominal: Normal Bowel Sounds, Soft, Non-Tender Extremities: Joint Swelling (right knee significantly swollen with increased warmth, very slight or early erythema to the medial knee. ), Other (satus post remote left BKA. ) Neurological: Alert, Oriented, No Motor/Sensory Deficits Psychiatric: Anxious Skin Exam: Warm, Dry, Intact Course - Vital Signs Last Recorded V/S: Last Vital Signs Temp 36.4 C 04/24/18 14:30 Pulse 79 04/24/18 14:30 Resp 14 04/24/18 14:30 BP 140/60 04/24/18 14:30 Pulse Ox 95 04/24/18 14:30 - Orders/Labs/Meds Orders: Active Orders 24 hr Category Date Time Status Peripheral IV Care [RC] . DIRECTED Care 04/24/18 13:10 Active Knee 1V or 2V Rt [CR] Urgent Exams 04/24/18 14:03 Taken CULTURE BLOOD [BC] Stat Lab 04/24/18 13:28 Results CULTURE BLOOD [BC] Stat Lab 04/24/18 13:35 Results Sodium Chloride 0.9% [Saline Flush] Med 04/24/18 13:10 Active 10 ml FLUSH ASDIRECTED PRN Blood Culture x2 Reflex Set [OM.PC] Stat Oth 04/24/18 13:10 Ordered Peripheral IV Insertion Adult [OM.PC] Stat Oth 04/24/18 13:10 Ordered Medication Orders Sodium Chloride (Saline Flush) 10 ml FLUSH ASDIRECTED PRN PRN Reason: Keep Vein Open Last Admin: 04/24/18 13:36 Dose: 10 ml Labs: Laboratory Tests 04/24/18 04/24/18 04/24/18 Range/Units 13:35 13:35 13:35 WBC 10.1 H (5.0-10.0) 10^3/uL RBC 3.63 L (4.2-5.4) 10^6/uL Hgb 9.3 L (12.0-16.0) g/dL Hct 31.5 L (37.0-47.0) % MCV 86.8 D (80-100) fL MCH 25.6 L (27.0-34.0) pg MCHC 29.5 L (33.0-35.0) g/dL Plt Count 199 (150-450) 10^3/uL Neut % (Auto) 89.1 H (42.2-75.2) % Lymph % (Auto) 4.5 L (20.5-50.1) % [place] % (Auto) 4.6 (2-8) % Eos % (Auto) 1.6 (1.0-3.0) % Baso % (Auto) 0.2 (0.0-1.0) % Sodium 130 L (135-145) mmol/L Potassium 3.6 (3.6-5.0) mmol/L Chloride 94 L (101-111) mmol/L Carbon Dioxide 27.0 (21.0-31.0) mmol/L Anion Gap 12.6 BUN 24 H D (7-18) mg/dL Creatinine 4.2 H D (0.6-1.3) mg/dL Est Cr Clr Drug Dosing 14.76 mL/min Estimated GFR (MDRD) 11 BUN/Creatinine Ratio 5.71 Glucose 168 H (74-105) mg/dL Lactic Acid (0.5-2.2) mmol/L Calcium 7.8 L (8.4-10.2) mg/dl Total Bilirubin 0.9 (0.2-1.0) mg/dL AST 18 (10-42) IU/L ALT 9 L (10-60) IU/L Alkaline Phosphatase 123 H (42-121) IU/L C-Reactive Protein 9.3 H (0.0-1.3) mg/dL Total Protein 8.3 H (6.7-8.2) g/dl Albumin 2.7 L (3.2-5.5) g/dl Globulin 5.6 Albumin/Globulin Ratio 0.48 04/24/18 Range/Units 13:35 WBC (5.0-10.0) 10^3/uL RBC (4.2-5.4) 10^6/uL Hgb (12.0-16.0) g/dL Hct (37.0-47.0) % MCV (80-100) fL MCH (27.0-34.0) pg MCHC (33.0-35.0) g/dL Plt Count (150-450) 10^3/uL Neut % (Auto) (42.2-75.2) % Lymph % (Auto) (20.5-50.1) % [place] % (Auto) (2-8) % Eos % (Auto) (1.0-3.0) % Baso % (Auto) (0.0-1.0) % Sodium (135-145) mmol/L Potassium (3.6-5.0) mmol/L Chloride (101-111) mmol/L Carbon Dioxide (21.0-31.0) mmol/L Anion Gap BUN (7-18) mg/dL Creatinine (0.6-1.3) mg/dL Est Cr Clr Drug Dosing mL/min Estimated GFR (MDRD) BUN/Creatinine Ratio Glucose (74-105) mg/dL Lactic Acid 1.0 (0.5-2.2) mmol/L Calcium (8.4-10.2) mg/dl Total Bilirubin (0.2-1.0) mg/dL AST (10-42) IU/L ALT (10-60) IU/L Alkaline Phosphatase (42-121) IU/L C-Reactive Protein (0.0-1.3) mg/dL Total Protein (6.7-8.2) g/dl Albumin (3.2-5.5) g/dl Globulin Albumin/Globulin Ratio Meds: Medications Generic Name Dose Route Start Last Admin Trade Name Freq PRN Reason Stop Dose Admin Sodium Chloride 10 ml 04/24/18 13:10 04/24/18 13:36 Saline Flush FLUSH 10 ml ASDIRECTED PRN Administration Keep Vein Open Discontinued Medications Generic Name Dose Route Start Last Admin Trade Name Freq PRN Reason Stop Dose Admin Hydromorphone HCl 1 mg 04/24/18 13:12 04/24/18 13:37 Dilaudid IVPUSH 04/24/18 13:13 1 mg ONETIME ONE Administration - Radiology Interpretation Free Text/Narrative:: X-ray right knee: Severe posttraumatic changes of the knee are present. Large suprapatellar joint effusion is present. Medial and lateral soft tissue swelling is present. See rad report. Departure - Departure Time of Disposition: 15:21 Disposition: DC/Tfer to Acute Hospital 02 Condition: Fair Clinical Impression: Effusion of knee joint right, Post-traumatic osteoarthritis of right knee, ESRD (end stage renal disease) on dialysis Right knee pain Qualifiers: Chronicity: acute Qualified Code(s): M25.561 - Pain in right knee - Discharge Information Forms: ED Department Discharge, Interfacility Transfer EMTALA - My Orders Last 24 Hours: My Active Orders 04/24/18 13:10 Peripheral IV Care [RC] . DIRECTED Sodium Chloride 0.9% [Saline Flush] 10 ml FLUSH ASDIRECTED PRN Blood Culture x2 Reflex Set [OM.PC] Stat Peripheral IV Insertion Adult [OM.PC] Stat 04/24/18 13:28 CULTURE BLOOD [BC] Stat 04/24/18 13:35 CULTURE BLOOD [BC] Stat 04/24/18 14:03 Knee 1V or 2V Rt [CR] Urgent - Assessment/Plan Last 24 Hours: My Active Orders 04/24/18 13:10 Peripheral IV Care [RC] . DIRECTED Sodium Chloride 0.9% [Saline Flush] 10 ml FLUSH ASDIRECTED PRN Blood Culture x2 Reflex Set [OM.PC] Stat Peripheral IV Insertion Adult [OM.PC] Stat 04/24/18 13:28 CULTURE BLOOD [BC] Stat 04/24/18 13:35 CULTURE BLOOD [BC] Stat 04/24/18 14:03 Knee 1V or 2V Rt [CR] Urgent I have read and agree with the documentation that has been completed regarding this visit. By signing this record, I attest that the documentation was completed in my physical presence and is an accurate record of the encounter.
== END 2018-04-24 16:32 ==
LOC: DL.ED 12:31
DX: M17.31 Unilateral post-traumatic osteoarthritis, right knee (principal); M25.461 Effusion, right knee; I12.0 Hypertensive chronic kidney disease with stage 5 chronic kidney disease or end stage renal disease; N18.6 End stage renal disease; E11.22 Type 2 diabetes mellitus with diabetic chronic kidney disease; Z88.5 Allergy status to narcotic agent; Z79.899 Other long term (current) drug therapy; Z99.2 Dependence on renal dialysis
CPT/HCPCS: 36415; 73560; 80053; 83605; 85025; 86140; 87040; 96374; 96376; 99284; J1170; J7050

== ENCOUNTER 2018-08-10 11:20 | Emergency (ER) | payer MEDICARE, MEDICAID ==
--- NOTE | 2018-08-10 11:21 | EDM.PDOC ---
ED HPI GENERAL MEDICAL PROBLEM - General Chief Complaint: Gastrointestinal Problem Stated Complaint: AMBULANCE Time Seen by Provider: 08/10/18 11:10 Source of Information: Reports: Patient, EMS History Limitations: Reports: No Limitations - History of Present Illness INITIAL COMMENTS - FREE TEXT/NARRATIVE: This 42 yo female patient was brought to the ED by [facility] due to generalized body aches, shortness of breath and missed dialysis. The patient reports she started to feel sick on Thursday (3 days ago) and has been getting worse since that time. The patient reports generalized body aches, but also has pain in the left side of her abdomen and right ankle. The patient denies any history of falls or trauma. The patient reports she has been in bed since Thursday. The patient reports she did have dialysis on last and on Thursday, but missed dialysis last Thursday. Duration: Day(s):, Constant, Getting Worse Location: Reports: Generalized Quality: Reports: Other Severity: Severe Improves with: Reports: None Worsens with: Reports: None Context: Reports: Other Associated Symptoms: Reports: Shortness of Breath, Weakness Generalized Pain Score (Numeric/FACES): 10 - Related Data Allergies Allergy/AdvReac Type Severity Reaction Status Date / Time codeine AdvReac Mild Stomach Uncoded 08/10/18 11:16 Upset Home Meds: Home Meds Calcium Acetate [Phoslo] 3 cap PO TIDM 12/01/13 [History] Ca Cmb No.1/Vit D3/B-6/FA/B12 [Vitamin D3 1,000 Unit] 1,000 unit PO DAILY [History] Calcium Carbonate [Calcium] 1,000 mg PO TIDMEALS 05/02/14 [History] Carvedilol 12.5 mg PO DAILY 05/02/14 [History] Gabapentin [Neurontin] 300 mg PO DAILY 05/02/14 [History] Insulin Glarg,Human.Rec.Analog [Lantus] 3 units SUBCUT BEDTIME 05/02/14 [History ] Sertraline [Zoloft] 100 mg PO BEDTIME 05/02/14 [History] amLODIPine [Norvasc] 5 mg PO DAILY 05/02/14 [History] Insulin Lispro [HumaLOG] 1 unit SQ TIDAC 08/21/15 [History] Pantoprazole [Protonix] 40 mg PO DAILY 08/21/15 [History] Sodium Polystyrene Sulfonate [Kayexalate] 30 ml PO ASDIRECTED PRN 08/21/15 [ History] Isosorbide Mononitrate [Imdur] 60 mg PO DAILY 02/05/17 [History] Hydrocodone/Acetaminophen [Hydrocodon-Acetaminophen 5-325] 1 each PO TID [History] Past Medical History HEENT History: Reports: Other (See Below) Other HEENT History: Wears glasses- does not have them there Cardiovascular History: Reports: High Cholesterol, Hypertension Respiratory History: Reports: Other (See Below) Other Respiratory History: Hx of pneumonia with chest tube insertion 2013 Gastrointestinal History: Reports: Other (See Below) Other Gastrointestinal History: Hx C.diff in 2015 Genitourinary History: Reports: Dialysis Other Genitourinary History: Pt states that she does not void in between dialysis txs- Tues, Thurs, Sat are he rscheduled dialysis days [employer]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: Musculoskeletal History: Reports: Amputation Other Musculoskeletal History: Amputation below right elbow, and below left knee , right 4th toe amputation Neurological History: Reports: None Other Neuro History: encephalopathy Psychiatric History: Reports: Anxiety Endocrine/Metabolic History: Reports: Diabetes, Type II, Vitamin D Deficiency Hematologic History: Reports: Anemia Immunologic History: Reports: None Oncologic (Cancer) History: Reports: None Dermatologic History: Reports: Other (See Below) Other Dermatologic History: hx of Cutaneous Porphyria - Infectious Disease History Infectious Disease History: Reports: C-Difficile, Chicken Pox - Past Surgical History HEENT Surgical History: Reports: Eye Surgery Neurological Surgical History: Reports: None Musculoskeletal Surgical History: Reports: Amputation Oncologic Surgical History: Reports: None Social & Family History - Family History Family Medical History: Noncontributory HEENT: Reports: None Cardiac: Reports: High Cholesterol, Hypertension, [place] Respiratory: Reports: Asthma GI: Reports: GERD : Reports: Dialysis, Renal Disease/Insufficiency OBGYN: Reports: None Musculoskeletal: Reports: Arthritis Neurological: Reports: Seizure Psychiatric: Reports: Anxiety Endocrine/Metabolic: Reports: Diabetes, Type I, Diabetes, type II Hematologic: Reports: None Immunologic: Reports: None Dermatologic: Reports: None Oncologic: Reports: None - Caffeine Use Caffeine Use: Reports: Tea - Living Situation & Occupation Living situation: Reports: Single, with Family Occupation: Disabled ED ROS GENERAL - Review of Systems Review Of Systems: ROS reveals no pertinent complaints other than HPI. ED EXAM, GENERAL - Physical Exam Exam: See Below Exam Limited By: No Limitations General Appearance: Alert, WD/WN, Anxious, Moderate Distress Eye Exam: Bilateral Eye: EOMI, Normal Inspection, PERRL Ears: Normal External Exam, Normal Canal, Hearing Grossly Normal, Normal TMs Nose: Normal Inspection, Normal Mucosa, No Blood Throat/Mouth: Normal Inspection, Normal Lips, Normal Teeth, Normal Gums, Normal Oropharynx, Normal Voice, No Airway Compromise Head: Atraumatic, Normocephalic Neck: Normal Inspection, Supple, Non-Tender, Full Range of Motion Respiratory/Chest: No Respiratory Distress, Lungs Clear, Normal Breath Sounds, No Accessory Muscle Use, Chest Non-Tender Cardiovascular: Normal Peripheral Pulses, Regular Rate, Rhythm, No Edema, No Gallop, No JVD, No Murmur, No Rub GI/Abdominal: Normal Bowel Sounds, No Organomegaly, No Distention, No Abnormal Bruit, No Mass, Pelvis Stable, Tender (diffuse tenderness (increased on left side)) (Female) Exam: Deferred Rectal (Female) Exam: Deferred Back Exam: Normal Inspection, Full Range of Motion, NT Extremities: Other (right ankle pain with swelling) Neurological: Alert, Oriented, CN II-XII Intact, Normal Cognition, Normal Gait, Normal Reflexes, No Motor/Sensory Deficits Psychiatric: Normal Affect, Normal Mood Skin Exam: Warm, Dry, Intact, Normal Color, No Rash Lymphatic: No Adenopathy Course - Vital Signs Last Recorded V/S: Last Vital Signs Temp 36.4 C 08/10/18 11:17 Pulse 86 08/10/18 11:17 Resp 16 08/10/18 11:17 BP 116/67 08/10/18 11:17 Pulse Ox 98 08/10/18 11:17 - Orders/Labs/Meds Orders: Active Orders 24 hr Category Date Time Status CULTURE BLOOD [BC] Stat Lab 08/10/18 11:15 Ordered CULTURE BLOOD [BC] Stat Lab 08/10/18 11:15 Ordered Blood Culture x2 Reflex Set [OM.PC] Stat Oth 08/10/18 11:14 Ordered Labs: Laboratory Tests 08/10/18 08/10/18 08/10/18 Range/Units 11:10 11:10 11:10 WBC 24.3 H (5.0-10.0) 10^3/uL RBC 3.57 L (4.2-5.4) 10^6/uL Hgb 10.0 L (12.0-16.0) g/dL Hct 31.9 L (37.0-47.0) % MCV 89.4 (80-100) fL MCH 28.0 (27.0-34.0) pg MCHC 31.3 L (33.0-35.0) g/dL Plt Count 165 (150-450) 10^3/uL Neut % (Auto) 95.1 H (42.2-75.2) % Lymph % (Auto) 1.8 L (20.5-50.1) % [place] % (Auto) 2.8 (2-8) % Eos % (Auto) 0.1 L (1.0-3.0) % Baso % (Auto) 0.2 (0.0-1.0) % Add Manual Diff Yes Neutrophils % (Manual) 84 H (42-75) % Band Neutrophils % 8 % Lymphocytes % (Manual) 3 L (20-50) % Atypical Lymphs % 1 % Monocytes % (Manual) 4 (2-8) % Anisocytosis 1+ slight Sodium (135-145) mmol/L Potassium (3.6-5.0) mmol/L Chloride (101-111) mmol/L Carbon Dioxide (21.0-31.0) mmol/L Anion Gap BUN (7-18) mg/dL Creatinine (0.6-1.3) mg/dL Est Cr Clr Drug Dosing Estimated GFR (MDRD) BUN/Creatinine Ratio Glucose (74-105) mg/dL Lactic Acid 1.3 (0.5-2.2) mmol/L Calcium (8.4-10.2) mg/dl Magnesium 1.7 L (1.8-2.5) mg/dL Total Bilirubin (0.2-1.0) mg/dL AST (10-42) IU/L ALT (10-60) IU/L Alkaline Phosphatase (42-121) IU/L B-Natriuretic Peptide 1290 H (0-100) pg/ml Total Protein (6.7-8.2) g/dl Albumin (3.2-5.5) g/dl Globulin Albumin/Globulin Ratio Amylase 18 L (28-100) U/L Lipase 30 (22-51) U/L 08/10/18 Range/Units 11:10 WBC (5.0-10.0) 10^3/uL RBC (4.2-5.4) 10^6/uL Hgb (12.0-16.0) g/dL Hct (37.0-47.0) % MCV (80-100) fL MCH (27.0-34.0) pg MCHC (33.0-35.0) g/dL Plt Count (150-450) 10^3/uL Neut % (Auto) (42.2-75.2) % Lymph % (Auto) (20.5-50.1) % [place] % (Auto) (2-8) % Eos % (Auto) (1.0-3.0) % Baso % (Auto) (0.0-1.0) % Add Manual Diff Neutrophils % (Manual) (42-75) % Band Neutrophils % % Lymphocytes % (Manual) (20-50) % Atypical Lymphs % % Monocytes % (Manual) (2-8) % Anisocytosis Sodium 126 L (135-145) mmol/L Potassium 4.4 (3.6-5.0) mmol/L Chloride 90 L (101-111) mmol/L Carbon Dioxide 15.0 L D (21.0-31.0) mmol/L Anion Gap 25.4 BUN 81 H D (7-18) mg/dL Creatinine 9.1 H D (0.6-1.3) mg/dL Est Cr Clr Drug Dosing TNP Estimated GFR (MDRD) 5 BUN/Creatinine Ratio 8.90 Glucose 118 H (74-105) mg/dL Lactic Acid (0.5-2.2) mmol/L Calcium 7.2 L (8.4-10.2) mg/dl Magnesium (1.8-2.5) mg/dL Total Bilirubin 0.9 (0.2-1.0) mg/dL AST 20 (10-42) IU/L ALT 14 (10-60) IU/L Alkaline Phosphatase 136 H (42-121) IU/L B-Natriuretic Peptide (0-100) pg/ml Total Protein 8.3 H (6.7-8.2) g/dl Albumin 2.8 L (3.2-5.5) g/dl Globulin 5.5 Albumin/Globulin Ratio 0.51 Amylase (28-100) U/L Lipase (22-51) U/L Departure - Departure Time of Disposition: 12:12 Disposition: DC/Tfer to [facility] 02 Condition: Poor Clinical Impression: Influenza B Leukocytosis Qualifiers: Leukocytosis type: bandemia Qualified Code(s): D72.825 - Bandemia CKD (chronic kidney disease) Qualifiers: Chronic kidney disease stage: on chronic dialysis Qualified Code(s): N18.6 - End stage renal disease; Z99.2 - Dependence on renal dialysis - Discharge Information *PRESCRIPTION DRUG MONITORING PROGRAM REVIEWED*: Not Applicable *COPY OF PRESCRIPTION DRUG MONITORING REPORT IN PATIENT KAMRYN: Not Applicable Forms: Interfacility Transfer EMTALA Care Plan Goals: Discussed the history, examination and lab results with Dr. Wright ([facility] Dr. Wright accepted the patient for continued evaluation and management. The patient will be transported by [facility]. - My Orders Last 24 Hours: My Active Orders 08/10/18 11:14 Blood Culture x2 Reflex Set [OM.PC] Stat 08/10/18 11:15 CULTURE BLOOD [BC] Stat CULTURE BLOOD [BC] Stat - Assessment/Plan Last 24 Hours: My Active Orders 08/10/18 11:14 Blood Culture x2 Reflex Set [OM.PC] Stat 08/10/18 11:15 CULTURE BLOOD [BC] Stat CULTURE BLOOD [BC] Stat
[2018-08-10 11:28] VITALS: BP 116/67
[2018-08-10 11:42] LABS: ANION GAP 25.4; CHLORIDE,CL 90 mmol/L (101-111); SODIUM,NA 126 mmol/L (135-145)
--- NOTE | 2018-08-10 11:55 | CR ---
Clinical history: 42-year-old diabetic female dialysis patient with "bodyaches" and shortness of breath. Interpretation: Upright AP portable chest film abnormal but relatively unchanged compared to comparable AP film 15 January 2018. (Reproducible left lower lobe pleural-parenchymal scarring) Normal cardiac silhouette without new cephalization of flow, signs of alveolar edema or dependent pleural fluid accumulation. No new lung mass or focal lobar pneumonia.
[2018-08-10] MEDS ORDERED: Acetaminophen/HYDROcodone 325-10 MG Tab PO ONE (12:50)
== END 2018-08-10 12:35 ==
LOC: DL.ED 11:20
DX: J10.2 Influenza due to other identified influenza virus with gastrointestinal manifestations (principal); E78.00 Pure hypercholesterolemia, unspecified; I12.0 Hypertensive chronic kidney disease with stage 5 chronic kidney disease or end stage renal disease; N18.6 End stage renal disease; E11.22 Type 2 diabetes mellitus with diabetic chronic kidney disease; F41.9 Anxiety disorder, unspecified; D72.825 Bandemia; Z88.5 Allergy status to narcotic agent; Z79.899 Other long term (current) drug therapy; Z99.2 Dependence on renal dialysis; Z79.4 Long term (current) use of insulin
CPT/HCPCS: 36415; 71045; 80053; 82150; 83605; 83690; 83735; 83880; 85025; 87040; 87804; 99285; A9270

== ENCOUNTER 2018-10-04 11:58 | Emergency (ER) | payer MEDICARE, MEDICAID ==
[~2018-10-04 11:58] MED LIST: Acetaminophen/HYDROcodone 325-10 MG Tab PO ONE
--- NOTE | 2018-10-04 11:59 | EDM.PDOC ---
ED HPI GENERAL MEDICAL PROBLEM - General Stated Complaint: AMBULANCE Time Seen by Provider: 10/04/18 11:45 Source of Information: Reports: Patient History Limitations: Reports: No Limitations - History of Present Illness INITIAL COMMENTS - FREE TEXT/NARRATIVE: This 43 yo female patient was brought to the ED by [facility] due to right leg and hip pain. The patient reports she fell last night and has had increased pain in her leg since that time. 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 Geronimo with [facility] in [place]). The patient reports she took one of her pain medications last night ([place] (5), but has not taken anything today. The patient reports she is scheduled to have dialysis this afternoon at 1400 and has a follow-up with Dr. Geronimo on . Onset Date: 10/03/18 Duration: Constant Location: Reports: Lower Extremity, Right Quality: Reports: Ache, Sharp Severity: Moderate Improves with: Reports: None Worsens with: Reports: None Context: Reports: Other Associated Symptoms: Reports: No Other Symptoms Right Stump Pain Score (Numeric/FACES): 10 - Related Data Allergies Allergy/AdvReac Type Severity Reaction Status Date / Time codeine AdvReac Mild Stomach Uncoded 08/10/18 11:16 Upset Home Meds: Home Meds Calcium Acetate [Phoslo] 3 cap PO TIDM 12/01/13 [History] Ca Cmb No.1/Vit D3/B-6/FA/B12 [Vitamin D3 1,000 Unit] 1,000 unit PO DAILY [History] Calcium Carbonate [Calcium] 1,000 mg PO TIDMEALS 05/02/14 [History] Carvedilol 12.5 mg PO DAILY 05/02/14 [History] Gabapentin [Neurontin] 300 mg PO DAILY 05/02/14 [History] Insulin Glarg,Human.Rec.Analog [Lantus] 3 units SUBCUT BEDTIME 05/02/14 [History ] Sertraline [Zoloft] 100 mg PO BEDTIME 05/02/14 [History] amLODIPine [Norvasc] 5 mg PO DAILY 05/02/14 [History] Insulin Lispro [HumaLOG] 1 unit SQ TIDAC 08/21/15 [History] Pantoprazole [Protonix] 40 mg PO DAILY 08/21/15 [History] Sodium Polystyrene Sulfonate [Kayexalate] 30 ml PO ASDIRECTED PRN 08/21/15 [ History] Isosorbide Mononitrate [Imdur] 60 mg PO DAILY 02/05/17 [History] Hydrocodone/Acetaminophen [Hydrocodon-Acetaminophen 5-325] 1 each PO TID [History] Past Medical History HEENT History: Reports: Other (See Below) Other HEENT History: Wears glasses- does not have them there Cardiovascular History: Reports: High Cholesterol, Hypertension Respiratory History: Reports: Other (See Below) Other Respiratory History: Hx of pneumonia with chest tube insertion 2013 Gastrointestinal History: Reports: Other (See Below) Other Gastrointestinal History: Hx C.diff in 2015 Genitourinary History: Reports: Dialysis Other Genitourinary History: Pt states that she does not void in between dialysis txs- Tues, Thurs, Sat are he rscheduled dialysis days 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: Musculoskeletal History: Reports: Amputation Other Musculoskeletal History: Amputation below right elbow, and below left knee , right 4th toe amputation Neurological History: Reports: None Other Neuro History: encephalopathy Psychiatric History: Reports: Anxiety Endocrine/Metabolic History: Reports: Diabetes, Type II, Vitamin D Deficiency Hematologic History: Reports: Anemia Immunologic History: Reports: None Oncologic (Cancer) History: Reports: None Dermatologic History: Reports: Other (See Below) Other Dermatologic History: hx of Cutaneous Porphyria - Infectious Disease History Infectious Disease History: Reports: C-Difficile, Chicken Pox - Past Surgical History HEENT Surgical History: Reports: Eye Surgery Neurological Surgical History: Reports: None Musculoskeletal Surgical History: Reports: Amputation Oncologic Surgical History: Reports: None Social & Family History - Family History Family Medical History: Noncontributory HEENT: Reports: None Cardiac: Reports: High Cholesterol, Hypertension, [place] Respiratory: Reports: Asthma GI: Reports: GERD : Reports: Dialysis, Renal Disease/Insufficiency OBGYN: Reports: None Musculoskeletal: Reports: Arthritis Neurological: Reports: Seizure Psychiatric: Reports: Anxiety Endocrine/Metabolic: Reports: Diabetes, Type I, Diabetes, type II Hematologic: Reports: None Immunologic: Reports: None Dermatologic: Reports: None Oncologic: Reports: None - Caffeine Use Caffeine Use: Reports: Tea - Living Situation & Occupation Living situation: Reports: Single, with Family Occupation: Disabled ED ROS GENERAL - Review of Systems Review Of Systems: ROS reveals no pertinent complaints other than HPI. ED EXAM, GENERAL - Physical Exam Exam: See Below Exam Limited By: No Limitations General Appearance: Alert, WD/WN, Lethargic, Moderate Distress Eye Exam: Bilateral Eye: EOMI, Normal Inspection, PERRL Ears: Normal External Exam, Normal Canal, Hearing Grossly Normal, Normal TMs Nose: Normal Inspection, Normal Mucosa, No Blood Throat/Mouth: Normal Lips, Normal Oropharynx, No Airway Compromise, Other (dry) Head: Atraumatic, Normocephalic Neck: Normal Inspection, Supple, Non-Tender, Full Range of Motion Respiratory/Chest: No Respiratory Distress, Lungs Clear, Normal Breath Sounds, No Accessory Muscle Use, Chest Non-Tender Cardiovascular: Normal Peripheral Pulses, Regular Rate, Rhythm, No Edema, No Gallop, No JVD, No Murmur, No Rub GI/Abdominal: Normal Bowel Sounds, Soft, Non-Tender, No Organomegaly, No Distention, No Abnormal Bruit, No Mass (Female) Exam: Deferred Rectal (Female) Exam: Deferred Extremities: Leg Pain (right above the knee amputation with pain from pelvis through site of amputation) Neurological: Alert, Oriented, CN II-XII Intact, Normal Cognition, Normal Gait, Normal Reflexes, No Motor/Sensory Deficits Psychiatric: Normal Affect, Normal Mood Skin Exam: Warm, Dry, Intact, Normal Color, No Rash Lymphatic: No Adenopathy Course - Vital Signs Last Recorded V/S: Last Vital Signs Temp 36.9 C 10/04/18 11:45 Pulse 82 10/04/18 11:45 Resp 20 10/04/18 11:45 BP 140/75 10/04/18 11:45 Pulse Ox 97 10/04/18 11:45 - Orders/Labs/Meds Meds: Medications Discontinued Medications Generic Name Dose Route Start Last Admin Trade Name Freq PRN Reason Stop Dose Admin Hydrocodone Bitart/Acetaminophen 1 tab 10/04/18 11:46 10/04/18 11:50 [place] 325-10 Mg PO 10/04/18 11:47 1 tab ONETIME ONE Administration Departure - Departure Time of Disposition: 13:04 Disposition: Home, Self-Care 01 Condition: Fair Clinical Impression: Contusion of right leg Qualifiers: Encounter type: initial encounter Qualified Code(s): S80.11XA - Contusion of right lower leg, initial encounter Strain of right hip Qualifiers: Encounter type: initial encounter Qualified Code(s): S76.011A - Strain of muscle, fascia and tendon of right hip, initial encounter - Discharge Information *PRESCRIPTION DRUG MONITORING PROGRAM REVIEWED*: Not Applicable *COPY OF PRESCRIPTION DRUG MONITORING REPORT IN PATIENT KAMRYN: Not Applicable Instructions: Contusion, [id number], Muscle Strain, [id number] Forms: ED Department Discharge Care Plan Goals: The patient was advised of the examination and x-ray results during the visit. A call was placed by nursing staff to [facility] in [place]. The patient is to call to reschedule her dialysis for tomorrow. The patient was advised to rest and relax over the next 48 hours. If the patient has any additional symptoms or concerns, the patient should either return to the emergency department or visit her primary care facility.
--- NOTE | 2018-10-04 12:21 | CR ---
Clinical history: 43-year-old female injured in a fall (last night). Interpretation: AP pelvis/and AP/frog lateral view of the right hip films confirm mid diaphyseal amputation femur/thigh. Extensive arteriovascular calcifications in the soft tissues indicating probable diabetes. *No sign of acute pelvic or either hip fracture/dislocation. Chronic arthritic changes lower lumbar spine. Symmetric spacing normal-appearing SI and hip joints.
[2018-10-04 12:27] VITALS: BP 140/75
== END 2018-10-04 15:00 | disposition home or self-care (01) ==
LOC: DL.ED 11:58
DX: S76.011A Strain of muscle, fascia and tendon of right hip, initial encounter (principal); S80.11XA Contusion of right lower leg, initial encounter; E78.00 Pure hypercholesterolemia, unspecified; I10 Essential (primary) hypertension; E11.9 Type 2 diabetes mellitus without complications; Z88.5 Allergy status to narcotic agent; Z79.899 Other long term (current) drug therapy; W18.30XA Fall on same level, unspecified, initial encounter; Z79.4 Long term (current) use of insulin
CPT/HCPCS: 73502; 99284; A9270

== ENCOUNTER 2018-11-17 09:50 | Emergency (ER) | payer MEDICARE, MEDICAID ==
--- NOTE | 2018-11-17 09:51 | EDM.PDOC ---
ED HPI GENERAL MEDICAL PROBLEM - General Chief Complaint: Cardiovascular Problem Stated Complaint: AMBULANCE Time Seen by Provider: 11/17/18 09:51 Source of Information: Reports: Patient, EMS, Old Records, RN, RN Notes Reviewed History Limitations: Reports: No Limitations - History of Present Illness INITIAL COMMENTS - FREE TEXT/NARRATIVE: Pt arrives from home by [facility] with c/o shortness of breath and weakness. Pt has Hx of ESRD on hemodialysis Tues/Thrus/Sat but has not gone to dialysis since . Pt states that she feels swollen with fluid all over her entire body. Pt states that she has experienced progressively worsening shortness of breath for several days. She was due for dialysis today but felt too short of breath to take the van, so she called 911. She denies chest pain, fever, chills, N/V. She states that she has no appetite. She feels that she has gained a lot of water weight this week. Onset: Unknown/Unsure Duration: Chronic, Recurring Location: Reports: Generalized Quality: Reports: Same as Previous Episode Severity: Severe Improves with: Reports: None Worsens with: Reports: None - Related Data Allergies Allergy/AdvReac Type Severity Reaction Status Date / Time codeine AdvReac Mild Stomach Uncoded 08/10/18 11:16 Upset Home Meds: Home Meds Calcium Acetate [Phoslo] 3 cap PO TIDM 12/01/13 [History] Ca Cmb No.1/Vit D3/B-6/FA/B12 [Vitamin D3 1,000 Unit] 1,000 unit PO DAILY [History] Calcium Carbonate [Calcium] 1,000 mg PO TIDMEALS 05/02/14 [History] Carvedilol 12.5 mg PO DAILY 05/02/14 [History] Gabapentin [Neurontin] 300 mg PO DAILY 05/02/14 [History] Insulin Glarg,Human.Rec.Analog [Lantus] 3 units SUBCUT BEDTIME 05/02/14 [History ] Sertraline [Zoloft] 100 mg PO BEDTIME 05/02/14 [History] amLODIPine [Norvasc] 5 mg PO DAILY 05/02/14 [History] Insulin Lispro [HumaLOG] 1 unit SQ TIDAC 08/21/15 [History] Pantoprazole [Protonix] 40 mg PO DAILY 08/21/15 [History] Sodium Polystyrene Sulfonate [Kayexalate] 30 ml PO ASDIRECTED PRN 08/21/15 [ History] Isosorbide Mononitrate [Imdur] 60 mg PO DAILY 02/05/17 [History] Hydrocodone/Acetaminophen [Hydrocodon-Acetaminophen 5-325] 1 each PO TID [History] Past Medical History HEENT History: Reports: Other (See Below) Other HEENT History: Wears glasses- does not have them there Cardiovascular History: Reports: High Cholesterol, Hypertension Respiratory History: Reports: Other (See Below) Other Respiratory History: Hx of pneumonia with chest tube insertion 2013 Gastrointestinal History: Reports: Other (See Below) Other Gastrointestinal History: Hx C.diff in 2015 Genitourinary History: Reports: Dialysis Other Genitourinary History: Pt states that she does not void in between dialysis txs- Tues, Thurs, Sat are he rscheduled dialysis days 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: Musculoskeletal History: Reports: Amputation Other Musculoskeletal History: Amputation below right elbow, and below left knee , right 4th toe amputation Neurological History: Reports: None Other Neuro History: encephalopathy Psychiatric History: Reports: Anxiety Endocrine/Metabolic History: Reports: Diabetes, Type II, Vitamin D Deficiency Hematologic History: Reports: Anemia Immunologic History: Reports: None Oncologic (Cancer) History: Reports: None Dermatologic History: Reports: Other (See Below) Other Dermatologic History: hx of Cutaneous Porphyria - Infectious Disease History Infectious Disease History: Reports: C-Difficile, Chicken Pox - Past Surgical History HEENT Surgical History: Reports: Eye Surgery Neurological Surgical History: Reports: None Musculoskeletal Surgical History: Reports: Amputation Oncologic Surgical History: Reports: None Social & Family History - Family History Family Medical History: Noncontributory HEENT: Reports: None Cardiac: Reports: High Cholesterol, Hypertension, [place] Respiratory: Reports: Asthma GI: Reports: GERD : Reports: Dialysis, Renal Disease/Insufficiency OBGYN: Reports: None Musculoskeletal: Reports: Arthritis Neurological: Reports: Seizure Psychiatric: Reports: Anxiety Endocrine/Metabolic: Reports: Diabetes, Type I, Diabetes, type II Hematologic: Reports: None Immunologic: Reports: None Dermatologic: Reports: None Oncologic: Reports: None - Caffeine Use Caffeine Use: Reports: Tea - Living Situation & Occupation Living situation: Reports: Single, with Family Occupation: Disabled ED [facility] - Review of Systems Review Of Systems: ROS reveals no pertinent complaints other than HPI. ED EXAM, GENERAL - Physical Exam Exam: See Below Exam Limited By: No Limitations General Appearance: Alert, Anxious, Obese, Other (Chronically ill but non-toxic appearing) Eye Exam: Bilateral Eye: Normal Inspection Ears: Hearing Grossly Normal Nose: Normal Inspection, Normal Mucosa, No Blood Throat/Mouth: Normal Oropharynx, Normal Voice, No Airway Compromise Head: Atraumatic, Normocephalic Neck: Normal Inspection, Supple, Non-Tender, Full Range of Motion Respiratory/Chest: No Respiratory Distress, No Accessory Muscle Use, Chest Non- Tender, Decreased Breath Sounds, Crackles, Rales, Wheezing. No: Rhonchi, Stridor, Retractions, Splinting Cardiovascular: Bradycardia GI/Abdominal: Normal Bowel Sounds, Soft, No Distention, Tender (mild generalized tenderness, probable ascites). 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 BKA stump) Neurological: Alert, Oriented, No Motor/Sensory Deficits Psychiatric: Anxious Skin Exam: Warm, Dry Course - Vital Signs Last Recorded V/S: Last Vital Signs Temp 35.7 C 11/17/18 09:55 Pulse 27 L 11/17/18 09:55 Resp 18 11/17/18 09:55 BP Pulse Ox 76 L 11/17/18 09:55 - Orders/Labs/Meds Orders: Active Orders 24 hr Category Date Time Status Blood Glucose Check, Bedside [RC] ONETIME Care 11/17/18 09:57 Active EKG 12 Lead [EKG Documentation Completion] [RC] STAT Care 11/17/18 09:56 Active Peripheral IV Care [RC] . DIRECTED Care 11/17/18 09:57 Active RT Aerosol Therapy [RC] ASDIRECTED Care 11/17/18 10:09 Active ABG [BLOOD GAS ARTERIAL] [BG] Stat Lab 11/17/18 11:25 Ordered AMYLASE [CHEM] Stat Lab 11/17/18 10:20 Results B-TYPE NATRIURETIC PEPTIDE,BNP [CHEM] Stat Lab 11/17/18 10:20 Results COMPREHENSIVE METABOLIC PN,CMP [CHEM] Stat Lab 11/17/18 10:20 Results CULTURE BLOOD [BC] Stat Lab 11/17/18 09:57 Ordered CULTURE BLOOD [BC] Stat Lab 11/17/18 09:57 Ordered ETHANOL BLOOD MEDICAL [CHEM] Stat Lab 11/17/18 10:20 Results LACTIC ACID [CHEM] Stat Lab 11/17/18 09:57 Ordered LIPASE [CHEM] Stat Lab 11/17/18 10:20 Results TROPONIN I [CHEM] Stat Lab 11/17/18 10:20 Results Midazolam [Versed 5 MG/ML] 50 mg Med 11/17/18 10:15 Active Sodium Chloride 0.9% [Normal Saline] 40 ml IV ASDIRECTED Sodium Chloride 0.9% [Saline Flush] Med 11/17/18 09:57 Active 10 ml FLUSH ASDIRECTED PRN fentaNYL [Sublimaze] 500 mcg Med 11/17/18 10:30 Active Sodium Chloride 0.9% [Normal Saline] 50 ml IV ONETIME Blood Culture x2 Reflex Set [OM.PC] Stat Oth 11/17/18 09:57 Ordered Peripheral IV Insertion Adult [OM.PC] Stat Oth 11/17/18 09:56 Ordered Medication Orders Midazolam HCl 50 mg/ Sodium (Chloride) 50 mls @ 0.5 mls/hr IV ASDIRECTED EH; Protocol Last Admin: 11/17/18 10:25 Dose: 0.5 mg/hr, 0.5 mls/hr Fentanyl 500 mcg/ Sodium (Chloride) 60 mls @ 2 mls/hr IV ONETIME ONE Stop: 11/18/18 16:29 Last Admin: 11/17/18 10:27 Dose: 2 mls/hr Sodium Chloride (Saline Flush) 10 ml FLUSH ASDIRECTED PRN PRN Reason: Keep Vein Open Labs: Laboratory Tests 11/17/18 11/17/18 11/17/18 Range/Units 10:20 10:20 10:20 WBC 7.5 (5.0-10.0) 10^3/uL RBC 4.25 (4.2-5.4) 10^6/uL Hgb 12.3 D (12.0-16.0) g/dL Hct 38.8 (37.0-47.0) % MCV 91.3 (80-100) fL MCH 28.9 (27.0-34.0) pg MCHC 31.7 L (33.0-35.0) g/dL Plt Count 212 (150-450) 10^3/uL Neut % (Auto) 78.8 H (42.2-75.2) % Lymph % (Auto) 11.6 L (20.5-50.1) % [place] % (Auto) 5.6 (2-8) % Eos % (Auto) 3.5 H (1.0-3.0) % Baso % (Auto) 0.5 (0.0-1.0) % Sodium 126 L (135-145) mmol/L Potassium 9.2 H* D (3.6-5.0) mmol/L Chloride 93 L (101-111) mmol/L Carbon Dioxide 16.0 L (21.0-31.0) mmol/L Anion Gap 26.2 BUN 124 H D (7-18) mg/dL Creatinine 9.9 H (0.6-1.3) mg/dL Est Cr Clr Drug Dosing TNP Estimated GFR (MDRD) 4 BUN/Creatinine Ratio 12.52 Glucose 247 H (74-105) mg/dL Calcium 7.7 L (8.4-10.2) mg/dl Phosphorus 9.1 H* (2.5-4.6) mg/dL Magnesium 2.3 (1.8-2.5) mg/dL Total Bilirubin 0.7 (0.2-1.0) mg/dL AST 45 H (10-42) IU/L ALT 24 (10-60) IU/L Alkaline Phosphatase 196 H (42-121) IU/L Troponin I 1.06 H* (0.00-0.02) ng/ml Total Protein 7.5 (6.7-8.2) g/dl Albumin 2.9 L (3.2-5.5) g/dl Globulin 4.6 Albumin/Globulin Ratio 0.63 Amylase 45 (28-100) U/L Lipase 61 H (22-51) U/L Ethyl Alcohol < 5 mg/dL Lab phone report critical value: K+ 9.2 Meds: Medications Generic Name Dose Route Start Last Admin Trade Name Freq PRN Reason Stop Dose Admin Midazolam HCl 50 mg/ Sodium 50 mls @ 0.5 mls/hr 11/17/18 10:15 11/17/18 10:25 Chloride IV 0.5 mg/hr ASDIRECTED EH 0.5 mls/hr Administration Protocol 0.5 MG/HR Fentanyl 500 mcg/ Sodium 60 mls @ 2 mls/hr 11/17/18 10:30 11/17/18 10:27 Chloride IV 11/18/18 16:29 2 mls/hr ONETIME ONE Administration Sodium Chloride 10 ml 11/17/18 09:57 Saline Flush FLUSH ASDIRECTED PRN Keep Vein Open Discontinued Medications Generic Name Dose Route Start Last Admin Trade Name Freq PRN Reason Stop Dose Admin Albuterol 10 mg 11/17/18 10:08 11/17/18 10:08 Proventil Neb Soln NEB 11/17/18 10:09 10 mg ONETIME ONE Administration Atropine Sulfate 1 mg 11/17/18 09:57 11/17/18 10:12 Atropine 0.1 Mg/Ml IVPUSH 11/17/18 09:58 1 mg ONETIME ONE Administration Calcium Chloride 1 gm 11/17/18 10:54 11/17/18 11:05 Calcium Chloride 10% IVPUSH 11/17/18 10:55 1 gm ONETIME ONE Administration Dextrose/Water 50 ml 11/17/18 10:55 11/17/18 11:05 Dextrose 50% In Water IVPUSH 11/17/18 10:56 50 ml ONETIME ONE Administration Fentanyl 50 mcg 11/17/18 10:04 11/17/18 10:20 Sublimaze IVPUSH 11/17/18 10:05 50 mcg ONETIME ONE Administration Furosemide 40 mg 11/17/18 11:25 Lasix IVPUSH 11/17/18 11:26 NOW ONE Insulin Human Regular 10 unit 11/17/18 10:54 11/17/18 11:04 Humulin R IV 11/17/18 10:55 10 units ONETIME ONE Administration Insulin Human Regular Confirm 11/17/18 11:02 Humulin R Administered 11/17/18 11:03 Dose 300 unit .ROUTE .STK-MED ONE Midazolam HCl 2 mg 11/17/18 10:04 11/17/18 10:22 Versed 1 Mg/Ml IVPUSH 11/17/18 10:05 2 mg ONETIME ONE Administration Sodium Bicarbonate 50 meq 11/17/18 11:18 Sodium Bicarbonate 8.4% IVPUSH 11/17/18 11:19 ONETIME ONE Sodium Polystyrene Sulfonate 45 gm 11/17/18 10:53 11/17/18 11:20 Kayexalate PO 11/17/18 10:54 45 gm NOW ONE Administration - Radiology Interpretation Free Text/Narrative:: Portable AP Chest XR: Poor inspiratory effort, chronic lingular atelectasis/ fibrosis unchanged since 08/08/18 x-ray. No acute process per Rad. report. - Re-Assessments/Exams Free Text/Narrative Re-Assessment/Exam: 11/17/18 Pt arrives to ER with heart rate of 25. No response to Atropine 1mg IVP. Pt transcutaneous paced with HR 60's. Potassium 9.2, Troponin 1.06. Airlift by rotor not available due to weather. Fixed wing transfer by [employer]. Flt >80mins. out. [facility] fixed wing available to launch within 10 mins. Departure - Departure Time of Disposition: 11:13 Disposition: DC/Tfer to Acute Hospital 02 Condition: Critical Clinical Impression: Hyperkalemia, Bradycardia, ESRD on hemodialysis, Elevated troponin, Noncompliance with renal dialysis - Discharge Information *PRESCRIPTION DRUG MONITORING PROGRAM REVIEWED*: No *COPY OF PRESCRIPTION DRUG MONITORING REPORT IN PATIENT KAMRYN: No Forms: ED Department Discharge, Interfacility Transfer EMTALA - My Orders Last 24 Hours: My Active Orders 11/17/18 09:56 EKG 12 Lead [EKG Documentation Completion] [RC] STAT Peripheral IV Insertion Adult [OM.PC] Stat 11/17/18 09:57 Blood Glucose Check, Bedside [RC] ONETIME Peripheral IV Care [RC] . DIRECTED CULTURE BLOOD [BC] Stat CULTURE BLOOD [BC] Stat LACTIC ACID [CHEM] Stat Sodium Chloride 0.9% [Saline Flush] 10 ml FLUSH ASDIRECTED PRN Blood Culture x2 Reflex Set [OM.PC] Stat 11/17/18 10:09 RT Aerosol Therapy [RC] ASDIRECTED 11/17/18 10:15 Midazolam [Versed 5 MG/ML] 50 mg Sodium Chloride 0.9% [Normal Saline] 40 ml IV ASDIRECTED 11/17/18 10:20 AMYLASE [CHEM] Stat B-TYPE NATRIURETIC PEPTIDE,BNP [CHEM] Stat COMPREHENSIVE METABOLIC PN,CMP [CHEM] Stat ETHANOL BLOOD MEDICAL [CHEM] Stat LIPASE [CHEM] Stat TROPONIN I [CHEM] Stat 11/17/18 10:30 fentaNYL [Sublimaze] 500 mcg Sodium Chloride 0.9% [Normal Saline] 50 ml IV ONETIME 11/17/18 11:25 ABG [BLOOD GAS ARTERIAL] [BG] Stat - Assessment/Plan Last 24 Hours: My Active Orders 11/17/18 09:56 EKG 12 Lead [EKG Documentation Completion] [RC] STAT Peripheral IV Insertion Adult [OM.PC] Stat 11/17/18 09:57 Blood Glucose Check, Bedside [RC] ONETIME Peripheral IV Care [RC] . DIRECTED CULTURE BLOOD [BC] Stat CULTURE BLOOD [BC] Stat LACTIC ACID [CHEM] Stat Sodium Chloride 0.9% [Saline Flush] 10 ml FLUSH ASDIRECTED PRN Blood Culture x2 Reflex Set [OM.PC] Stat 11/17/18 10:09 RT Aerosol Therapy [RC] ASDIRECTED 11/17/18 10:15 Midazolam [Versed 5 MG/ML] 50 mg Sodium Chloride 0.9% [Normal Saline] 40 ml IV ASDIRECTED 11/17/18 10:20 AMYLASE [CHEM] Stat B-TYPE NATRIURETIC PEPTIDE,BNP [CHEM] Stat COMPREHENSIVE METABOLIC PN,CMP [CHEM] Stat ETHANOL BLOOD MEDICAL [CHEM] Stat LIPASE [CHEM] Stat TROPONIN I [CHEM] Stat 11/17/18 10:30 fentaNYL [Sublimaze] 500 mcg Sodium Chloride 0.9% [Normal Saline] 50 ml IV ONETIME 11/17/18 11:25 ABG [BLOOD GAS ARTERIAL] [BG] Stat
[2018-11-17] MEDS ORDERED: Atropine 0.1 MG/ML 10 ML Syringe IVPUSH ONE (09:57)
[2018-11-17] MEDS ORDERED: Sodium Chloride 0.9% 10 ML Syringe FLUSH PRN (09:57)
[2018-11-17] MEDS ORDERED: fentaNYL 100 MCG/2 ML SDV IVPUSH ONE (10:04)
[2018-11-17] MEDS ORDERED: Albuterol 0.083% 2.5 MG/3 ML Neb Soln NEB ONE (10:08)
[2018-11-17] MEDS ORDERED: Midazolam 50 MG in Sodium Chloride 0.9% 40 ML IV SCH (10:15)
[2018-11-17] MEDS: Midazolam 1 MG/ML 2 ML SDV IVPUSH ONE ×2 (10:16→10:22)
[2018-11-17] MEDS ORDERED: fentaNYL 500 MCG in Sodium Chloride 0.9% 50 ML IV ONE (10:30)
--- NOTE | 2018-11-17 10:52 | CR ---
Clinical history: 43-year-old female in the emergency Department complaining of shortness of breath. Interpretation: (External monitoring analyst leads and oxygen cannula) Poor inspiratory effort; AP supine chest: Confirm some chronic lingular atelectasis/fibrosis unchanged since July 2018. No increase in cardiac silhouette and new signs of alveolar edema or dependent pleural fluid accumulation. No new lung mass, hilar lymphadenopathy or focal lobar pneumonia. No pneumothorax. CONCLUSION: No acute new cardiopulmonary abnormality.
[2018-11-17] MEDS ORDERED: Sodium Polystyrene Sulfonate 15 GM/60 ML Susp 60 ML Bot PO ONE (10:53)
[2018-11-17] MEDS ORDERED: Insulin Regular, Human 100 Units/ML 3 ML Vial IV ONE ×2 (10:54→12:34)
[2018-11-17] MEDS ORDERED: Calcium Chloride 10% 1 GM/10 ML Syringe IVPUSH ONE (10:54)
[2018-11-17] MEDS ORDERED: 50% Dextrose in Water 50 ML Syringe IVPUSH ONE ×2 (10:55→12:34)
[2018-11-17 10:56] LABS: CHLORIDE,CL 93 mmol/L (101-111); SODIUM,NA 126 mmol/L (135-145)
[2018-11-17] MEDS ORDERED: Insulin Regular, Human 100 Units/ML 3 ML Vial ONE (11:02)
[2018-11-17 11:04] LABS: ANION GAP 26.2
[2018-11-17] MEDS ORDERED: Sodium Bicarbonate 8.4% 50 MEQ/50 ML Syringe IVPUSH ONE (11:18)
[2018-11-17] MEDS ORDERED: Furosemide 40 MG/4 ML VIAL IVPUSH ONE (11:25)
[2018-11-17 11:38] LABS: BASE EXCESS ARTERIAL -2 mmol/L ((-2)-(+3)); O2 DELIVERY DEVICE AEROSOL MASK; O2 SATURATION ARTERIAL 44 % (95-100); PCO2 ARTERIAL 65 mmHg (35-45)
[2018-11-17] MEDS ORDERED: DOPamine/Dextrose 5%-Water 400 MG/250 ML BAG IV SCH (12:30)
[2018-11-17] MEDS ORDERED: 50% Dextrose in Water 50 ML Syringe ONE (12:34)
--- NOTE | 2018-11-17 13:04 | CR ---
Clinical history: Intubation 43-year-old female. Interpretation: Upright AP portable chest film confirms midline location endotracheal tube with the tip located 2.0 cm from the tracheal bifurcation (Marzena). No new evidence of mediastinal air, lobar collapse, or pneumothorax since 10:37 AM preintubation supine chest x-ray.
[2018-11-18 07:32] LABS: ALLEN TEST PERFORMED; PO2 ARTERIAL 35 mmHg (70-100)
== END 2018-11-17 13:06 ==
LOC: DL.ED 09:50
DX: I12.0 Hypertensive chronic kidney disease with stage 5 chronic kidney disease or end stage renal disease (principal); N18.6 End stage renal disease; R00.1 Bradycardia, unspecified; E87.5 Hyperkalemia; R79.89 Other specified abnormal findings of blood chemistry; Z99.2 Dependence on renal dialysis; Z91.19 Patient's noncompliance with other medical treatment and regimen; E11.22 Type 2 diabetes mellitus with diabetic chronic kidney disease; Z88.5 Allergy status to narcotic agent
CPT/HCPCS: 36415; 36600; 51702; 71045; 80053; 82150; 82803; 82962; 83605; 83690; 83735; 83880; 84100; 84132; 84484; 85025; 87040; 93005; 96365; 96366; 96367; 96368; 96375; 96376; 99284; 99285-25; A9270-GY; G0480; J0461; J1265; J1815-GY; J1940; J2250; J3010; J7050; J7060; J7613-GY

== ENCOUNTER 2019-04-24 01:49 | Emergency (ER) | payer MEDICARE, MEDICAID ==
[2019-04-24 00:57] VITALS: BP 133/83; PULSE 97
--- NOTE | 2019-04-24 01:01 | EDM.PDOC ---
ED HPI GENERAL MEDICAL PROBLEM - General Chief Complaint: General Stated Complaint: AMBULANCE Time Seen by Provider: 04/24/19 00:55 Source of Information: Reports: Patient History Limitations: Reports: No Limitations - History of Present Illness INITIAL COMMENTS - FREE TEXT/NARRATIVE: This 43 yo female patient was brought to the ED by [facility] due to increased shortness of breath and lower back/hip pain. The patient reports her lower back pain started about 3 hours prior to coming to the ED. The patient reports increased shortness of breath over the past couple of days. The patient is a dialysis patient that normally has dialysis on Thursday, Thursday and Thursday, but has missed the past 2 dialysis appointment (last dialysis was on 04/18/19). The patient reports she missed dialysis due to having diarrhea over the past several days. Onset: Other Duration: Constant, Getting Worse Location: Reports: Chest, Back Quality: Reports: Other Severity: Moderate Improves with: Reports: None Worsens with: Reports: None Context: Reports: Other Associated Symptoms: Reports: No Other Symptoms Right Lower Back Pain Score (Numeric/FACES): 5 - Related Data Allergies Allergy/AdvReac Type Severity Reaction Status Date / Time codeine AdvReac Mild Stomach Uncoded 04/24/19 00:59 Upset Home Meds: Home Meds Calcium Acetate [Phoslo] 3 cap PO TIDM 12/01/13 [History] Ca Cmb No.1/Vit D3/B-6/FA/B12 [Vitamin D3 1,000 Unit] 1,000 unit PO DAILY [History] Calcium Carbonate [Calcium] 1,000 mg PO TIDMEALS 05/02/14 [History] Carvedilol 12.5 mg PO DAILY 05/02/14 [History] Gabapentin [Neurontin] 300 mg PO DAILY 05/02/14 [History] Insulin Glarg,Human.Rec.Analog [Lantus] 3 units SUBCUT BEDTIME 05/02/14 [History ] Sertraline [Zoloft] 100 mg PO BEDTIME 05/02/14 [History] amLODIPine [Norvasc] 5 mg PO DAILY 05/02/14 [History] Insulin Lispro [HumaLOG] 1 unit SQ TIDAC 08/21/15 [History] Pantoprazole [Protonix] 40 mg PO DAILY 08/21/15 [History] Sodium Polystyrene Sulfonate [Kayexalate] 30 ml PO ASDIRECTED PRN 08/21/15 [ History] Isosorbide Mononitrate [Imdur] 60 mg PO DAILY 02/05/17 [History] Hydrocodone/Acetaminophen [Hydrocodon-Acetaminophen 5-325] 1 each PO TID [History] Past Medical History HEENT History: Reports: Other (See Below) Other HEENT History: Wears glasses- does not have them there Cardiovascular History: Reports: High Cholesterol, Hypertension Respiratory History: Reports: Other (See Below) Other Respiratory History: Hx of pneumonia with chest tube insertion 2013 Gastrointestinal History: Reports: Other (See Below) Other Gastrointestinal History: Hx C.diff in 2015 Genitourinary History: Reports: Dialysis Other Genitourinary History: Pt states that she does not void in between dialysis txs- Tues, Thurs, Sat are he rscheduled dialysis days 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: Musculoskeletal History: Reports: Amputation Other Musculoskeletal History: Amputation below right elbow, and below left knee , right 4th toe amputation Neurological History: Reports: None Other Neuro History: encephalopathy Psychiatric History: Reports: Anxiety Endocrine/Metabolic History: Reports: Diabetes, Type II, Vitamin D Deficiency Hematologic History: Reports: Anemia Immunologic History: Reports: None Oncologic (Cancer) History: Reports: None Dermatologic History: Reports: Other (See Below) Other Dermatologic History: hx of Cutaneous Porphyria - Infectious Disease History Infectious Disease History: Reports: C-Difficile, Chicken Pox - Past Surgical History HEENT Surgical History: Reports: Eye Surgery Neurological Surgical History: Reports: None Musculoskeletal Surgical History: Reports: Amputation Oncologic Surgical History: Reports: None Social & Family History - Family History Family Medical History: Noncontributory HEENT: Reports: None Cardiac: Reports: High Cholesterol, Hypertension, [place] Respiratory: Reports: Asthma GI: Reports: GERD : Reports: Dialysis, Renal Disease/Insufficiency OBGYN: Reports: None Musculoskeletal: Reports: Arthritis Neurological: Reports: Seizure Psychiatric: Reports: Anxiety Endocrine/Metabolic: Reports: Diabetes, Type I, Diabetes, type II Hematologic: Reports: None Immunologic: Reports: None Dermatologic: Reports: None Oncologic: Reports: None - Caffeine Use Caffeine Use: Reports: Tea - Living Situation & Occupation Living situation: Reports: Single, with Family Occupation: Disabled ED ROS GENERAL - Review of Systems Review Of Systems: ROS reveals no pertinent complaints other than HPI. ED EXAM, GENERAL - Physical Exam Exam: See Below Exam Limited By: No Limitations General Appearance: Alert, WD/WN, Moderate Distress Eye Exam: Bilateral Eye: EOMI, Normal Inspection, PERRL Ears: Normal External Exam, Normal Canal, Hearing Grossly Normal, Normal TMs Nose: Normal Inspection, Normal Mucosa, No Blood Throat/Mouth: Normal Inspection, Normal Lips, Normal Teeth, Normal Gums, Normal Oropharynx, Normal Voice, No Airway Compromise Head: Atraumatic, Normocephalic Neck: Normal Inspection, Supple, Non-Tender, Full Range of Motion Respiratory/Chest: No Accessory Muscle Use, Chest Non-Tender, Decreased Breath Sounds (due to lack of effort) Cardiovascular: Tachycardia GI/Abdominal: Normal Bowel Sounds, Soft, Non-Tender, No Organomegaly, No Distention, No Abnormal Bruit, No Mass (Female) Exam: Deferred Rectal (Female) Exam: Deferred Back Exam: Normal Inspection, Full Range of Motion, NT Extremities: Arm Pain (multiple amputations), Leg Pain (bilateral amputations) Neurological: Alert, Oriented Psychiatric: Depressed Mood, Flat Affect Skin Exam: Warm, Dry, Intact, Normal Color, No Rash Lymphatic: No Adenopathy Course - Vital Signs Last Recorded V/S: Last Vital Signs Temp 35.9 C 04/24/19 00:47 Pulse 97 04/24/19 00:47 Resp 18 04/24/19 00:47 BP 133/83 04/24/19 00:47 Pulse Ox 100 04/24/19 00:47 - Orders/Labs/Meds Orders: Active Orders 24 hr Category Date Time Status EKG Documentation Completion [RC] URGENT Care 04/24/19 00:46 Active RT Aerosol Therapy [RC] ASDIRECTED Care 04/24/19 01:39 Ordered CULTURE BLOOD [BC] Stat Lab 04/24/19 00:55 Results Labs: Laboratory Tests 04/24/19 04/24/19 04/24/19 Range/Units 00:55 00:55 00:55 WBC 6.4 (5.0-10.0) 10^3/uL RBC 3.73 L (4.2-5.4) 10^6/uL Hgb 11.3 L (12.0-16.0) g/dL Hct 35.5 L (37.0-47.0) % MCV 95.2 D (80-100) fL MCH 30.3 (27.0-34.0) pg MCHC 31.8 L (33.0-35.0) g/dL Plt Count 165 (150-450) 10^3/uL Neut % (Auto) 79.4 H (42.2-75.2) % Lymph % (Auto) 10.9 L (20.5-50.1) % Bureau % (Auto) 8.2 H (2-8) % Eos % (Auto) 1.2 (1.0-3.0) % Baso % (Auto) 0.3 (0.0-1.0) % Sodium 135 (135-145) mmol/L Potassium 7.1 H* (3.6-5.0) mmol/L Chloride 98 L (101-111) mmol/L Carbon Dioxide 16.0 L (21.0-31.0) mmol/L Anion Gap 28.1 BUN 139 H (7-18) mg/dL Creatinine 11.4 H D (0.6-1.3) mg/dL Est Cr Clr Drug Dosing 4.48 mL/min Estimated GFR (MDRD) 4 BUN/Creatinine Ratio 12.19 Glucose 177 H (74-105) mg/dL POC Glucose (70-105) mg/dl Lactic Acid 0.8 (0.5-2.2) mmol/L Calcium 5.3 L* D (8.4-10.2) mg/dl Total Bilirubin 0.9 (0.2-1.0) mg/dL AST 21 (10-42) IU/L ALT 17 (10-60) IU/L Alkaline Phosphatase 146 H (42-121) IU/L Troponin I 0.04 H* (0.00-0.02) ng/ml B-Natriuretic Peptide 1810 H (0-100) pg/ml Total Protein 8.6 H (6.7-8.2) g/dl Albumin 3.3 (3.2-5.5) g/dl Globulin 5.3 Albumin/Globulin Ratio 0.62 04/24/19 Range/Units 01:00 WBC (5.0-10.0) 10^3/uL RBC (4.2-5.4) 10^6/uL Hgb (12.0-16.0) g/dL Hct (37.0-47.0) % MCV (80-100) fL MCH (27.0-34.0) pg MCHC (33.0-35.0) g/dL Plt Count (150-450) 10^3/uL Neut % (Auto) (42.2-75.2) % Lymph % (Auto) (20.5-50.1) % Bureau % (Auto) (2-8) % Eos % (Auto) (1.0-3.0) % Baso % (Auto) (0.0-1.0) % Sodium (135-145) mmol/L Potassium (3.6-5.0) mmol/L Chloride (101-111) mmol/L Carbon Dioxide (21.0-31.0) mmol/L Anion Gap BUN (7-18) mg/dL Creatinine (0.6-1.3) mg/dL Est Cr Clr Drug Dosing mL/min Estimated GFR (MDRD) BUN/Creatinine Ratio Glucose (74-105) mg/dL POC Glucose 169 H (70-105) mg/dl Lactic Acid (0.5-2.2) mmol/L Calcium (8.4-10.2) mg/dl Total Bilirubin (0.2-1.0) mg/dL AST (10-42) IU/L ALT (10-60) IU/L Alkaline Phosphatase (42-121) IU/L Troponin I (0.00-0.02) ng/ml B-Natriuretic Peptide (0-100) pg/ml Total Protein (6.7-8.2) g/dl Albumin (3.2-5.5) g/dl Globulin Albumin/Globulin Ratio Meds: Medications Discontinued Medications Generic Name Dose Route Start Last Admin Trade Name Freq PRN Reason Stop Dose Admin Albuterol 2.5 mg 04/24/19 01:35 Proventil Neb Soln NEB 04/24/19 01:36 ONETIME ONE Calcium Gluconate 1 gm 04/24/19 01:35 Calcium Gluconate IVPUSH 04/24/19 01:36 ONETIME ONE Dextrose/Water 25 ml 04/24/19 01:35 Dextrose 50% In Water IVPUSH 04/24/19 01:36 ONETIME ONE Insulin Human Regular 10 unit 04/24/19 01:40 Humulin R IV 04/24/19 01:41 ONETIME ONE Sodium Polystyrene Sulfonate 45 gm 04/24/19 01:41 Kayexalate PO 04/24/19 01:42 NOW ONE Departure - Departure Time of Disposition: 01:44 Disposition: DC/Tfer to Acute Hospital 02 Condition: Serious Clinical Impression: Hyperkalemia, End stage renal disease on dialysis, Noncompliance with therapeutic regimen - Discharge Information *PRESCRIPTION DRUG MONITORING PROGRAM REVIEWED*: Yes *COPY OF PRESCRIPTION DRUG MONITORING REPORT IN PATIENT KAMRYN: Yes Forms: Interfacility Transfer EMTALA Care Plan Goals: Discussed the patient's history, examination, EKG and lab results with Dr. Sánchez (Hospitalist with [facility] in [place]). Dr. Sánchez accepted the patient for continued evaluation and management. The patient will be transported by [facility]. - My Orders Last 24 Hours: My Active Orders 04/24/19 00:46 EKG Documentation Completion [RC] URGENT 04/24/19 00:55 CULTURE BLOOD [BC] Stat 04/24/19 01:39 RT Aerosol Therapy [RC] ASDIRECTED - Assessment/Plan Last 24 Hours: My Active Orders 04/24/19 00:46 EKG Documentation Completion [RC] URGENT 04/24/19 00:55 CULTURE BLOOD [BC] Stat 04/24/19 01:39 RT Aerosol Therapy [RC] ASDIRECTED
[2019-04-24 01:24] LABS: ANION GAP 28.1
[~2019-04-24 01:49] MED LIST changes: +50% Dextrose in Water 50 ML Syringe IVPUSH ONE; -Acetaminophen/HYDROcodone 325-10 MG Tab PO ONE; +Albuterol 0.083% 2.5 MG/3 ML Neb Soln NEB ONE; +Calcium Gluconate 10% 1 GM/10 ML SDV IVPUSH ONE; +Insulin Regular, Human 100 Units/ML 3 ML Vial IV ONE; +Sodium Polystyrene Sulfonate 15 GM/60 ML Susp 60 ML Bot PO ONE
== END 2019-04-24 03:20 ==
LOC: DL.ED 01:49
DX: E87.5 Hyperkalemia (principal); E11.22 Type 2 diabetes mellitus with diabetic chronic kidney disease; I12.0 Hypertensive chronic kidney disease with stage 5 chronic kidney disease or end stage renal disease; N18.6 End stage renal disease; F41.9 Anxiety disorder, unspecified; Z99.2 Dependence on renal dialysis; Z79.4 Long term (current) use of insulin; Z88.5 Allergy status to narcotic agent; Z79.899 Other long term (current) drug therapy; Z91.19 Patient's noncompliance with other medical treatment and regimen
CPT/HCPCS: 36415; 80053; 82962; 83605; 83880; 84484; 85025; 87040; 93005; 94640; 96374; 96375; 99285; A9270; J0610; J1815; J7060; J7613-GY

== ENCOUNTER 2019-05-20 02:23 | Emergency (ER) | payer MEDICARE, MEDICAID ==
--- NOTE | 2019-05-20 02:53 | EDM.PDOC ---
ED HPI GENERAL MEDICAL PROBLEM - General Chief Complaint: Lower Extremity Injury/Pain Stated Complaint: FOOT PAIN Time Seen by Provider: 05/20/19 02:47 Source of Information: Reports: Patient History Limitations: Reports: No Limitations - History of Present Illness INITIAL COMMENTS - FREE TEXT/NARRATIVE: ED with c/o severe pain to left stump. Hx wound to stump x 2 months after bumping on leg rest at dialysis, changing bandage twice daily, notes drainage green sometimes. Pain at base of stump radiating to upper lateral thigh, Dialysis patient, last on Thursday. Sinus congestion for one week. Reports to one RN is out of pain medication for few days, Other RN last took 2 Hydrocodone today at 4 pm. 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: Reports: Nitroglycerin Left Lower Knee Pain Score (Numeric/FACES): 7 - Related Data Allergies Allergy/AdvReac Type Severity Reaction Status Date / Time codeine AdvReac Mild Stomach Uncoded 05/20/19 02:49 Upset Home Meds: Home Meds Calcium Acetate [Phoslo] 3 cap PO TIDM 12/01/13 [History] Ca Cmb No.1/Vit D3/B-6/FA/B12 [Vitamin D3 1,000 Unit] 1,000 unit PO DAILY [History] Calcium Carbonate [Calcium] 1,000 mg PO TIDMEALS 05/02/14 [History] Carvedilol 12.5 mg PO DAILY 05/02/14 [History] Gabapentin [Neurontin] 300 mg PO DAILY 05/02/14 [History] Insulin Glarg,Human.Rec.Analog [Lantus] 3 units SUBCUT BEDTIME 05/02/14 [History ] Sertraline [Zoloft] 100 mg PO BEDTIME 05/02/14 [History] amLODIPine [Norvasc] 5 mg PO DAILY 05/02/14 [History] Insulin Lispro [HumaLOG] 1 unit SQ TIDAC 08/21/15 [History] Pantoprazole [Protonix] 40 mg PO DAILY 08/21/15 [History] Sodium Polystyrene Sulfonate [Kayexalate] 30 ml PO ASDIRECTED PRN 08/21/15 [ History] Isosorbide Mononitrate [Imdur] 60 mg PO DAILY 02/05/17 [History] Hydrocodone/Acetaminophen [Hydrocodon-Acetaminophen 5-325] 1 each PO TID [History] Past Medical History HEENT History: Reports: Other (See Below) Other HEENT History: Wears glasses- does not have them there Cardiovascular History: Reports: High Cholesterol, Hypertension Respiratory History: Reports: Other (See Below) Other Respiratory History: Hx of pneumonia with chest tube insertion 2013 Gastrointestinal History: Reports: Other (See Below) Other Gastrointestinal History: Hx C.diff in 2015 Genitourinary History: Reports: Dialysis Other Genitourinary History: Pt states that she does not void in between dialysis txs- Tues, Thurs, Sat are he rscheduled dialysis days 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: Musculoskeletal History: Reports: Amputation Other Musculoskeletal History: Amputation below right elbow, and below left knee , right 4th toe amputation Neurological History: Reports: None Other Neuro History: encephalopathy Psychiatric History: Reports: Anxiety Endocrine/Metabolic History: Reports: Diabetes, Type II, Vitamin D Deficiency Hematologic History: Reports: Anemia Immunologic History: Reports: None Oncologic (Cancer) History: Reports: None Dermatologic History: Reports: Other (See Below) Other Dermatologic History: hx of Cutaneous Porphyria - Infectious Disease History Infectious Disease History: Reports: C-Difficile, Chicken Pox - Past Surgical History HEENT Surgical History: Reports: Eye Surgery Neurological Surgical History: Reports: None Musculoskeletal Surgical History: Reports: Amputation Oncologic Surgical History: Reports: None Social & Family History - Family History Family Medical History: Noncontributory HEENT: Reports: None Cardiac: Reports: High Cholesterol, Hypertension, [place] Respiratory: Reports: Asthma GI: Reports: GERD : Reports: Dialysis, Renal Disease/Insufficiency OBGYN: Reports: None Musculoskeletal: Reports: Arthritis Neurological: Reports: Seizure Psychiatric: Reports: Anxiety Endocrine/Metabolic: Reports: Diabetes, Type I, Diabetes, type II Hematologic: Reports: None Immunologic: Reports: None Dermatologic: Reports: None Oncologic: Reports: None - Caffeine Use Caffeine Use: Reports: Tea - Living Situation & Occupation Living situation: Reports: Single, with Family Occupation: Disabled Review of Systems - Review of Systems Review Of Systems: ROS reveals no pertinent complaints other than HPI. ED EXAM, GENERAL - Physical Exam Exam: See Below Exam Limited By: No Limitations General Appearance: Alert, Moderate Distress Eye Exam: Bilateral Eye: EOMI Ears: Normal External Exam, Hearing Grossly Normal Nose: Clear Rhinorrhea Throat/Mouth: Normal Inspection Head: Facial Tenderness (right cheek vesicular lesion few ruptured, d) Respiratory/Chest: No Respiratory Distress, Respiratory Distress, Crackles ( bases bilateral) Cardiovascular: Normal Peripheral Pulses, Regular Rate, Rhythm GI/Abdominal: Normal Bowel Sounds, Soft Back Exam: Full Range of Motion Extremities: Other (above wrist amputation on right, right above knee amputation , left below knee amputation, 3cm open ulcer left lateral stump with dark [place] , black 1x1.5cm black blister to medial distal stump, shallow partially avulsed blister to knee left, fingers left 2nd and 34d dark ) Neurological: Alert, Oriented, Normal Cognition, Other (Speech thick, slurring at times. Clears on request.. ) Psychiatric: Normal Affect Skin Exam: Warm, Wound/Incision (above) Course - Vital Signs Last Recorded V/S: Last Vital Signs Temp 96.4 F 05/20/19 04:08 Pulse 72 05/20/19 04:08 Resp 17 05/20/19 04:08 BP 124/88 05/20/19 04:08 Pulse Ox 95 05/20/19 04:08 - Orders/Labs/Meds Orders: Active Orders 24 hr Category Date Time Status EKG 12 Lead [EKG Documentation Completion] [RC] URGENT Care 05/20/19 04:14 Ordered CULTURE BLOOD [BC] Stat Lab 05/20/19 02:45 Results CULTURE BLOOD [BC] Stat Lab 05/20/19 03:45 Received Blood Culture x2 Reflex Set [OM.PC] Stat Oth 05/20/19 02:39 Ordered Labs: Laboratory Tests 05/20/19 05/20/19 05/20/19 Range/Units 02:45 02:45 02:45 WBC 14.9 H (5.0-10.0) 10^3/uL RBC 3.95 L (4.2-5.4) 10^6/uL Hgb 11.9 L (12.0-16.0) g/dL Hct 37.0 (37.0-47.0) % MCV 93.7 (80-100) fL MCH 30.1 (27.0-34.0) pg MCHC 32.2 L (33.0-35.0) g/dL Plt Count 166 (150-450) 10^3/uL Neut % (Auto) 88.2 H (42.2-75.2) % Lymph % (Auto) 5.1 L (20.5-50.1) % [place] % (Auto) 5.1 (2-8) % Eos % (Auto) 1.5 (1.0-3.0) % Baso % (Auto) 0.1 (0.0-1.0) % Add Manual Diff Yes Neutrophils % (Manual) 71 (42-75) % Band Neutrophils % 17 % Lymphocytes % (Manual) 6 L (20-50) % Atypical Lymphs % 0 % Monocytes % (Manual) 5 (2-8) % Eosinophils % (Manual) 1 (1-3) % Basophils % (Manual) 0 Sodium 129 L (135-145) mmol/L Potassium 6.1 H (3.6-5.0) mmol/L Chloride 92 L (101-111) mmol/L Carbon Dioxide 17.0 L (21.0-31.0) mmol/L Anion Gap 26.1 BUN 84 H D (7-18) mg/dL Creatinine 9.1 H D (0.6-1.3) mg/dL Est Cr Clr Drug Dosing TNP Estimated GFR (MDRD) 5 BUN/Creatinine Ratio 9.23 Glucose 150 H (74-105) mg/dL Lactic Acid 0.8 (0.5-2.2) mmol/L Calcium 6.5 L (8.4-10.2) mg/dl Total Bilirubin 1.0 (0.2-1.0) mg/dL AST 14 (10-42) IU/L ALT 17 (10-60) IU/L Alkaline Phosphatase 159 H (42-121) IU/L B-Natriuretic Peptide 1080 H (0-100) pg/ml Total Protein 9.4 H (6.7-8.2) g/dl Albumin 3.1 L (3.2-5.5) g/dl Globulin 6.3 Albumin/Globulin Ratio 0.49 Ethyl Alcohol < 5 mg/dL Meds: Medications Discontinued Medications Generic Name Dose Route Start Last Admin Trade Name Freq PRN Reason Stop Dose Admin Piperacillin Sod/Tazobactam 50 mls @ 100 mls/hr 05/20/19 03:53 05/20/19 04:19 Sod 2.25 gm/ Sodium Chloride IV 05/20/19 04:22 100 mls/hr ONETIME ONE Administration - Radiology Interpretation Free Text/Narrative:: [facility] [place] [facility] Final Radiology Report Call: [phone] assistance Online chat: [email or web address] Name: OLIVA APARICIO Age: 43Years F Date: 05/20/2019 SSN: -- : 1975 Study: XR FEMUR 2 VIEWS LEFT Requesting Physician: RICK BRUNO Images: 6 Addl Studies: Provided Clinical History: diabetic ulcer, swelling Contrast: Contrast Medium: Contrast Amount: Contrast Method: CONFIDENTIALITY STATEMENT This report is intended only for use by the referring physician, and only in accordance with law. If you received this in error, call [phone]. Page 1 of 1 PROCEDURE INFORMATION: Exam: XR Left Femur Exam date and time: 05/20/2019 3:08 AM Clinical history: 43 years old, female; Pain; Thigh; Left; Additional info: Diabetic ulcer, swelling TECHNIQUE: Imaging protocol: XR Left femur. Views: 2 views. COMPARISON: No relevant prior studies available. FINDINGS: Bones/joints: Status post [id number] amputation. Soft tissues: Unremarkable. Vasculature: Calcifications are seen within the femoral and popliteal artery. IMPRESSION: There are no acute osseous findings. Status post [id number] amputation. Thank you for allowing us to participate in the care of your patient. Dictated and Authenticated by: Abel Ramirez MD - Re-Assessments/Exams Free Text/Narrative Re-Assessment/Exam: 05/20/19 04:29 Moans from pain with minimal movment of LLE. At rest light dozing, arouses easily. Departure - Departure Time of Disposition: 04:25 Disposition: DC/Tfer to Acute Hospital 02 Condition: Good Clinical Impression: Cellulitis of left lower extremity, Hypokalemia, Dialysis patient, Hyperkalemia CKD (chronic kidney disease) Qualifiers: Chronic kidney disease stage: on chronic dialysis Qualified Code(s): N18.6 - End stage renal disease - Discharge Information *PRESCRIPTION DRUG MONITORING PROGRAM REVIEWED*: Yes *COPY OF PRESCRIPTION DRUG MONITORING REPORT IN PATIENT KAMRYN: Yes Forms: ED Department Discharge - My Orders Last 24 Hours: My Active Orders 05/20/19 02:39 Blood Culture x2 Reflex Set [OM.PC] Stat 05/20/19 02:45 CULTURE BLOOD [BC] Stat 05/20/19 03:45 CULTURE BLOOD [BC] Stat 05/20/19 04:14 EKG 12 Lead [EKG Documentation Completion] [RC] URGENT - Assessment/Plan Last 24 Hours: My Active Orders 05/20/19 02:39 Blood Culture x2 Reflex Set [OM.PC] Stat 05/20/19 02:45 CULTURE BLOOD [BC] Stat 05/20/19 03:45 CULTURE BLOOD [BC] Stat 05/20/19 04:14 EKG 12 Lead [EKG Documentation Completion] [RC] URGENT
[2019-05-20 03:12] LABS: ANION GAP 26.1; CHLORIDE,CL 92 mmol/L (101-111); SODIUM,NA 129 mmol/L (135-145)
[2019-05-20] MEDS ORDERED: Piperacillin/Tazobactam 2.25 GM in Sodium Chloride 0.9% 50 ML IV ONE (03:53)
[2019-05-20 04:09] VITALS: BP 124/88; PULSE 72
== END 2019-05-20 04:49 ==
LOC: DL.ED 02:23
DX: L03.116 Cellulitis of left lower limb (principal); I12.0 Hypertensive chronic kidney disease with stage 5 chronic kidney disease or end stage renal disease; N18.6 End stage renal disease; E87.5 Hyperkalemia; E87.6 Hypokalemia; E78.00 Pure hypercholesterolemia, unspecified; F41.9 Anxiety disorder, unspecified; E55.9 Vitamin D deficiency, unspecified; Z79.4 Long term (current) use of insulin; Z79.899 Other long term (current) drug therapy; Z88.5 Allergy status to narcotic agent; Z99.2 Dependence on renal dialysis
CPT/HCPCS: 36415; 73552; 80053; 83605; 83880; 85025; 87040; 93005; 96365; 99284; G0480; J2543; J7050

== ENCOUNTER 2019-07-06 07:26 | Emergency (ER) | payer MEDICARE, MEDICAID ==
--- NOTE | 2019-07-06 07:34 | EDM.PDOC ---
ED HPI GENERAL MEDICAL PROBLEM - General Stated Complaint: AMBULANCE Time Seen by Provider: 07/06/19 07:34 Source of Information: Reports: Patient, RN, RN Notes Reviewed History Limitations: Reports: No Limitations - History of Present Illness INITIAL COMMENTS - FREE TEXT/NARRATIVE: Patient presents to ER per DL with complaint of cough and some shortness of breath this morning. Patient is on chronic hemodialysis with her last run being on Thursday. Patient states she overslept and did not go on Thursday. Patient denies any fever, chills, N/V/D. Patient states her apartment is dry, she had a little bloody nose earlier this morning, and has then complaining of a cough with some sputum. Patient states the shortness of breath has improved, she states she feels may be the SOB was from anxiety.states she has to run dialysis at 11:30 AM today. Onset: Today, Sudden Back Pain Score (Numeric/FACES): 3 - Related Data Allergies Allergy/AdvReac Type Severity Reaction Status Date / Time codeine AdvReac Mild Stomach Uncoded 05/20/19 02:49 Upset Home Meds: Home Meds Calcium Acetate [Phoslo] 3 cap PO TIDM 12/01/13 [History] Ca Cmb No.1/Vit D3/B-6/FA/B12 [Vitamin D3 1,000 Unit] 1,000 unit PO DAILY [History] Calcium Carbonate [Calcium] 1,000 mg PO TIDMEALS 05/02/14 [History] Gabapentin [Neurontin] 300 mg PO DAILY 05/02/14 [History] Insulin Glarg,Human.Rec.Analog [Lantus] 3 units SUBCUT BEDTIME 05/02/14 [History ] Sertraline [Zoloft] 100 mg PO BEDTIME 05/02/14 [History] amLODIPine [Norvasc] 5 mg PO DAILY 05/02/14 [History] carvediloL [Carvedilol] 12.5 mg PO DAILY 05/02/14 [History] Insulin Lispro [HumaLOG] 1 unit SQ TIDAC 08/21/15 [History] Pantoprazole [Protonix] 40 mg PO DAILY 08/21/15 [History] Sodium Polystyrene Sulfonate [Kayexalate] 30 ml PO ASDIRECTED PRN 08/21/15 [ History] Isosorbide Mononitrate [Imdur] 60 mg PO DAILY 02/05/17 [History] Hydrocodone/Acetaminophen [Hydrocodon-Acetaminophen 5-325] 1 each PO TID [History] Past Medical History HEENT History: Reports: Other (See Below) Other HEENT History: Wears glasses- does not have them there Cardiovascular History: Reports: High Cholesterol, Hypertension Respiratory History: Reports: Other (See Below) Other Respiratory History: Hx of pneumonia with chest tube insertion 2013 Gastrointestinal History: Reports: Other (See Below) Other Gastrointestinal History: Hx C.diff in 2015 Genitourinary History: Reports: Dialysis Other Genitourinary History: Pt states that she does not void in between dialysis txs- Tues, Th, Sat are he rscheduled dialysis days 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: Musculoskeletal History: Reports: Amputation Other Musculoskeletal History: Amputation below right elbow, and below left knee , right 4th toe amputation Neurological History: Reports: None Other Neuro History: encephalopathy Psychiatric History: Reports: Anxiety Endocrine/Metabolic History: Reports: Diabetes, Type II, Vitamin D Deficiency Hematologic History: Reports: Anemia Immunologic History: Reports: None Oncologic (Cancer) History: Reports: None Dermatologic History: Reports: Other (See Below) Other Dermatologic History: hx of Cutaneous Porphyria - Infectious Disease History Infectious Disease History: Reports: C-Difficile, Chicken Pox - Past Surgical History HEENT Surgical History: Reports: Eye Surgery Neurological Surgical History: Reports: None Musculoskeletal Surgical History: Reports: Amputation Oncologic Surgical History: Reports: None Social & Family History - Family History Family Medical History: Noncontributory HEENT: Reports: None Cardiac: Reports: High Cholesterol, Hypertension, [place] Respiratory: Reports: Asthma GI: Reports: GERD : Reports: Dialysis, Renal Disease/Insufficiency OBGYN: Reports: None Musculoskeletal: Reports: Arthritis Neurological: Reports: Seizure Psychiatric: Reports: Anxiety Endocrine/Metabolic: Reports: Diabetes, Type I, Diabetes, type II Hematologic: Reports: None Immunologic: Reports: None Dermatologic: Reports: None Oncologic: Reports: None - Caffeine Use Caffeine Use: Reports: Tea - Living Situation & Occupation Living situation: Reports: Single, with Family Occupation: Disabled ED ROS GENERAL - Review of Systems Review Of Systems: Comprehensive ROS is negative, except as noted in HPI. ED EXAM, GENERAL - Physical Exam Exam: See Below Exam Limited By: No Limitations General Appearance: Alert, WD/WN, No Apparent Distress Eye Exam: Bilateral Eye: EOMI, Normal Inspection Ears: Normal External Exam, Hearing Grossly Normal Nose: Other Throat/Mouth: Normal Inspection (dried blood in the left nare), Normal Voice, No Airway Compromise Head: Atraumatic, Normocephalic Neck: Normal Inspection, Supple, Non-Tender, Full Range of Motion Respiratory/Chest: No Respiratory Distress, No Accessory Muscle Use, Chest Non- Tender, Decreased Breath Sounds Cardiovascular: Normal Peripheral Pulses, Regular Rate, Rhythm, No Edema, No Gallop, No JVD, No Murmur, No Rub GI/Abdominal: Normal Bowel Sounds, Soft, Non-Tender (Female) Exam: Deferred Rectal (Female) Exam: Deferred Extremities: Other (Eder bilateral AKA, right arm amputated at the forearm, left hand tips of fingers have been amputated.) Neurological: Alert, Oriented Psychiatric: Normal Affect, Normal Mood Skin Exam: Warm, Dry, Other (several areas of sores on the right side of the face at various stages of healing, quarter-sized wound to the right forearm. Also has a callus to the stump of the right arm.) Lymphatic: No Adenopathy Course - Vital Signs Last Recorded V/S: Last Vital Signs Temp 97.5 F 07/06/19 07:34 Pulse 95 07/06/19 07:34 Resp 18 07/06/19 07:34 BP 126/97 H 07/06/19 07:34 Pulse Ox 100 07/06/19 07:34 - Orders/Labs/Meds Labs: Laboratory Tests 07/06/19 07/06/19 Range/Units 08:00 08:00 WBC 7.6 (5.0-10.0) 10^3/uL RBC 3.31 L (4.2-5.4) 10^6/uL Hgb 10.2 L D (12.0-16.0) g/dL Hct 31.7 L (37.0-47.0) % MCV 95.8 (80-100) fL MCH 30.8 (27.0-34.0) pg MCHC 32.2 L (33.0-35.0) g/dL Plt Count 190 (150-450) 10^3/uL Neut % (Auto) 83.2 H (42.2-75.2) % Lymph % (Auto) 7.5 L (20.5-50.1) % Tucker % (Auto) 7.8 (2-8) % Eos % (Auto) 1.2 (1.0-3.0) % Baso % (Auto) 0.3 (0.0-1.0) % Sodium 127 L (135-145) mmol/L Potassium 6.9 H* (3.6-5.0) mmol/L Chloride 88 L (101-111) mmol/L Carbon Dioxide 16.0 L (21.0-31.0) mmol/L Anion Gap 29.9 BUN 104 H (7-18) mg/dL Creatinine 11.3 H D (0.6-1.3) mg/dL Est Cr Clr Drug Dosing 4.52 mL/min Estimated GFR (MDRD) 4 BUN/Creatinine Ratio 9.20 Glucose 175 H (74-105) mg/dL Calcium 5.8 L* (8.4-10.2) mg/dl Total Bilirubin 0.8 (0.2-1.0) mg/dL AST 17 (10-42) IU/L ALT 25 (10-60) IU/L Alkaline Phosphatase 168 H (42-121) IU/L Total Protein 8.8 H (6.7-8.2) g/dl Albumin 3.0 L (3.2-5.5) g/dl Globulin 5.8 Albumin/Globulin Ratio 0.52 - Radiology Interpretation Free Text/Narrative:: Chest xray: no no signs of heart failure or lobar pneumonia. Chronic pleural parenchymal scarring left base. large azygous lymphadenopathy and/or mediastinal mass. See rad report - Re-Assessments/Exams Free Text/Narrative Re-Assessment/Exam: 07/06/19 13:37 Discussed patient case with Dr. Lei, supervisor steel division who states the patient needs to be transferred to [facility] for dialysis. Discussed patient case with Dr. Le who agreed to accept the patient for transfer to [facility] in [place]. Departure - Departure Time of Disposition: 09:39 Disposition: DC/Tfer to Acute Hospital 02 Condition: Fair Clinical Impression: CKD (chronic kidney disease) Qualifiers: Chronic kidney disease stage: on chronic dialysis Qualified Code(s): N18.6 - End stage renal disease - Discharge Information Forms: ED Department Discharge Sepsis Event Note - Focused Exam Vital Signs: Vital Signs Temp Pulse Resp BP Pulse Ox 07/06/19 07:34 97.5 F 95 18 126/97 H 100 Date Exam was Performed: 07/06/19 Time Exam was Performed: 13:37
[2019-07-06 07:39] VITALS: BP 126/97; PULSE 95
[2019-07-06 08:32] LABS: ANION GAP 29.9
--- NOTE | 2019-07-06 09:10 | CR ---
EXAMINATION: Chest 1V Frontal SEX: Female AGE: 43 years CLINICAL HISTORY: 43-year-old obese female with chest pain. INTERPRETATION: 1. Chronic pleural-parenchymal scarring left base. 2. Normal cardiac silhouette without pulmonary vascular congestion, new cephalization of vascular flow, alveolar edema or dependent pleural fluid accumulation. 3. *Large azygous lymphadenopathy and/or mediastinal mass (dilated superior vena cava?), on the right. Note: This is decidedly more prominent than on previous exams July 2018 and July [address] CT scan with IV contrast. D dimer? 4. No other lung mass, hilar lymphadenopathy or focal lobar infiltrate. Conclusion: No new signs of heart failure or lobar pneumonia. Chronic pleural parenchymal scarring left base. See comments above regarding superior mediastinum.
== END 2019-07-06 09:20 ==
LOC: DL.ED 07:26
DX: N18.6 End stage renal disease (principal)
CPT/HCPCS: 36415; 71045; 80053; 85025; 99284; 99285-25

== ENCOUNTER 2019-07-22 16:13 | Emergency (ER) | payer MEDICARE, MEDICAID ==
[2019-07-22 17:46] VITALS: BP 100/60; PULSE 77
[2019-07-22] MEDS ORDERED: Doxycycline 100 MG Cap PO ONE (18:36)
[2019-07-22 18:39] LABS: ANION GAP 16.5; CHLORIDE,CL 92 mmol/L (101-111); SODIUM,NA 129 mmol/L (135-145)
--- NOTE | 2019-07-28 16:17 | EDM.PDOC ---
Scribed by Rachel Webster 07/22/19 [id number] for Magi Alvarado PA-C ED HPI GENERAL MEDICAL PROBLEM - General Chief Complaint: Skin Complaint Stated Complaint: WOUND ON LEG Time Seen by Provider: 07/22/19 17:43 Source of Information: Reports: Patient, RN, RN Notes Reviewed History Limitations: Reports: No Limitations - History of Present Illness INITIAL COMMENTS - FREE TEXT/NARRATIVE: Patient presents to ER with leg wound draining and bleeding on bottom. Daughter is doing dressing changes. She has a wound appointment on July 26, 2019. She has had questionable fever. Her last antibiotics were 1 month ago. Patient is on dialysis and has chronic wounds left stump. Onset: Gradual Duration: Getting Worse Location: Reports: Lower Extremity, Left Quality: Reports: Ache Severity: Moderate Improves with: Reports: None Worsens with: Reports: None Associated Symptoms: Reports: No Other Symptoms Left Stump Pain Score (Numeric/FACES): 8 - Related Data Allergies Allergy/AdvReac Type Severity Reaction Status Date / Time codeine AdvReac Mild Stomach Uncoded 07/22/19 17:41 Upset Home Meds: Home Meds Calcium Acetate [Phoslo] 3 cap PO TIDM 12/01/13 [History] Ca Cmb No.1/Vit D3/B-6/FA/B12 [Vitamin D3 1,000 Unit] 1,000 unit PO DAILY [History] Calcium Carbonate [Calcium] 1,000 mg PO TIDMEALS 05/02/14 [History] Gabapentin [Neurontin] 300 mg PO DAILY 05/02/14 [History] Insulin Glarg,Human.Rec.Analog [Lantus] 3 units SUBCUT BEDTIME 05/02/14 [History ] Sertraline [Zoloft] 100 mg PO BEDTIME 05/02/14 [History] amLODIPine [Norvasc] 5 mg PO DAILY 05/02/14 [History] carvediloL [Carvedilol] 12.5 mg PO DAILY 05/02/14 [History] Insulin Lispro [HumaLOG] 1 unit SQ TIDAC 08/21/15 [History] Pantoprazole [Protonix] 40 mg PO DAILY 08/21/15 [History] Sodium Polystyrene Sulfonate [Kayexalate] 30 ml PO ASDIRECTED PRN 08/21/15 [ History] Isosorbide Mononitrate [Imdur] 60 mg PO DAILY 02/05/17 [History] Hydrocodone/Acetaminophen [Hydrocodon-Acetaminophen 5-325] 1 each PO TID [History] Past Medical History HEENT History: Reports: Other (See Below) Other HEENT History: Wears glasses- does not have them there Cardiovascular History: Reports: High Cholesterol, Hypertension Respiratory History: Reports: Other (See Below) Other Respiratory History: Hx of pneumonia with chest tube insertion 2013 Gastrointestinal History: Reports: Other (See Below) Other Gastrointestinal History: Hx C.diff in 2015 Genitourinary History: Reports: Dialysis Other Genitourinary History: Pt states that she does not void in between dialysis txs- Tues, Th, Sat are he rscheduled dialysis days 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: Musculoskeletal History: Reports: Amputation Other Musculoskeletal History: Amputation below right elbow, and below left knee , right 4th toe amputation Neurological History: Reports: None Other Neuro History: encephalopathy Psychiatric History: Reports: Anxiety Endocrine/Metabolic History: Reports: Diabetes, Type II, Vitamin D Deficiency Hematologic History: Reports: Anemia Immunologic History: Reports: None Oncologic (Cancer) History: Reports: None Dermatologic History: Reports: Other (See Below) Other Dermatologic History: hx of Cutaneous Porphyria - Infectious Disease History Infectious Disease History: Reports: C-Difficile, Chicken Pox - Past Surgical History HEENT Surgical History: Reports: Eye Surgery Neurological Surgical History: Reports: None Musculoskeletal Surgical History: Reports: Amputation Oncologic Surgical History: Reports: None Social & Family History - Family History Family Medical History: Noncontributory HEENT: Reports: None Cardiac: Reports: High Cholesterol, Hypertension, [place] Respiratory: Reports: Asthma GI: Reports: GERD : Reports: Dialysis, Renal Disease/Insufficiency OBGYN: Reports: None Musculoskeletal: Reports: Arthritis Neurological: Reports: Seizure Psychiatric: Reports: Anxiety Endocrine/Metabolic: Reports: Diabetes, Type I, Diabetes, type II Hematologic: Reports: None Immunologic: Reports: None Dermatologic: Reports: None Oncologic: Reports: None - Caffeine Use Caffeine Use: Reports: Tea - Living Situation & Occupation Living situation: Reports: Single, with Family Occupation: Disabled ED ROS GENERAL - Review of Systems Review Of Systems: Comprehensive ROS is negative, except as noted in HPI. ED EXAM, SKIN/RASH Exam: See Below Exam Limited By: No Limitations General Appearance: Alert (and orientated) Eye Exam: Bilateral Eye: EOMI Ears: Normal External Exam Throat/Mouth: Normal Voice, No Airway Compromise Head: Atraumatic, Normocephalic Neck: Supple Respiratory/Chest: Lungs Clear Cardiovascular: Regular Rate, Rhythm GI/Abdominal: Soft (Female) Exam: Deferred Rectal (Female) Exam: Deferred Extremities: Other (bilateral amputee. ) Neurological: Alert, Oriented, CN II-XII Intact, Normal Cognition, Normal Gait, Normal Reflexes, No Motor/Sensory Deficits Psychiatric: Normal Affect, Normal Mood, Flat Affect Skin: Warm, Normal Color, Other (1x3 wound distal left stump with green drainage. multiple shallow lower distal medial. ) Associated features: Warmth, Swelling Course - Vital Signs Last Recorded V/S: Last Vital Signs Temp 97.6 F 07/22/19 17:42 Pulse 77 07/22/19 17:42 Resp 16 07/22/19 17:42 BP 100/60 07/22/19 17:42 Pulse Ox 98 07/22/19 17:42 - Orders/Labs/Meds Labs: Laboratory Tests 07/22/19 07/22/19 07/22/19 Range/Units 18:06 18:06 18:06 WBC 8.0 (5.0-10.0) 10^3/uL RBC 3.21 L (4.2-5.4) 10^6/uL Hgb 9.7 L (12.0-16.0) g/dL Hct 31.2 L (37.0-47.0) % MCV 97.2 (80-100) fL MCH 30.2 (27.0-34.0) pg MCHC 31.1 L (33.0-35.0) g/dL Plt Count 230 (150-450) 10^3/uL Neut % (Auto) 85.6 H (42.2-75.2) % Lymph % (Auto) 6.3 L (20.5-50.1) % Toombs % (Auto) 4.8 (2-8) % Eos % (Auto) 2.8 (1.0-3.0) % Baso % (Auto) 0.5 (0.0-1.0) % Add Manual Diff Yes Neutrophils % (Manual) 91 H (42-75) % Lymphocytes % (Manual) 6 L (20-50) % Monocytes % (Manual) 3 (2-8) % Sodium 129 L (135-145) mmol/L Potassium 4.5 D (3.6-5.0) mmol/L Chloride 92 L (101-111) mmol/L Carbon Dioxide 25.0 (21.0-31.0) mmol/L Anion Gap 16.5 BUN 25 H D (7-18) mg/dL Creatinine 3.4 H D (0.6-1.3) mg/dL Est Cr Clr Drug Dosing TNP Estimated GFR (MDRD) 15 BUN/Creatinine Ratio 7.35 Glucose 184 H (74-105) mg/dL Lactic Acid 2.1 H* (0.5-2.0) mmol/L Calcium 8.2 L D (8.4-10.2) mg/dl Total Bilirubin 0.6 (0.2-1.0) mg/dL AST 14 (10-42) IU/L ALT 12 (10-60) IU/L Alkaline Phosphatase 127 H (42-121) IU/L Total Protein 8.7 H (6.7-8.2) g/dl Albumin 2.6 L (3.2-5.5) g/dl Globulin 6.1 Albumin/Globulin Ratio 0.43 Meds: Medications Discontinued Medications Generic Name Dose Route Start Last Admin Trade Name Freq PRN Reason Stop Dose Admin Doxycycline Hyclate 100 mg 07/22/19 18:36 07/22/19 19:02 Vibramycin PO 07/22/19 18:37 100 mg ONETIME ONE Administration Departure - Departure Time of Disposition: 19:03 Disposition: Home, Self-Care 01 Condition: Good Clinical Impression: Dialysis patient, Pressure ulcer of below knee amputation stump - Discharge Information *PRESCRIPTION DRUG MONITORING PROGRAM REVIEWED*: No *COPY OF PRESCRIPTION DRUG MONITORING REPORT IN PATIENT KAMRYN: No Instructions: Pressure Injury Referrals: PCP,None [Primary Care Provider] - Forms: ED Department Discharge Additional Instructions: dressing change twice daily irrigate or wash wounds at least one time daily doxycycline 100mg one twice daily follow up worsening, increased redness, drainage or fever wound care clinic as scheduled on Thursday Sepsis Event Note - Focused Exam Date Exam was Performed: 07/28/19 Time Exam was Performed: 16:15 I have read and agree with the documentation that has been completed regarding this visit. By signing this record, I attest that the documentation was completed in my physical presence and is an accurate record of the encounter.
== END 2019-07-22 19:14 | disposition home or self-care (01) ==
LOC: DL.ED 16:13
DX: T87.89 Other complications of amputation stump (principal); L89.899 Pressure ulcer of other site, unspecified stage; I10 Essential (primary) hypertension; E11.9 Type 2 diabetes mellitus without complications; E78.00 Pure hypercholesterolemia, unspecified; F41.9 Anxiety disorder, unspecified; Z88.5 Allergy status to narcotic agent; Z79.4 Long term (current) use of insulin; Z79.899 Other long term (current) drug therapy; Z99.2 Dependence on renal dialysis
CPT/HCPCS: 36415; 80053; 83605; 85025; 87040; 87070; 87077; 87186; 99283; A9270

== ENCOUNTER 2019-08-28 10:33 | Emergency (ER) | payer MEDICARE, MEDICAID ==
[2019-08-28 10:53] VITALS: BP 110/65; PULSE 128
[2019-08-28] MEDS ORDERED: Sodium Chloride 0.9% 10 ML Syringe FLUSH PRN (13:26)
[2019-08-28] MEDS ORDERED: Levofloxacin/Dextrose 5%-Water 250 MG in Premix Bag 1 BAG IV ONE (13:26)
[2019-08-28 13:35] LABS: ANION GAP 22.2; CHLORIDE,CL 93 mmol/L (101-111); SODIUM,NA 128 mmol/L (135-145)
--- NOTE | 2019-08-28 13:58 | EDM.PDOC ---
Scribed by Rachel Webster 08/28/19 [id number] for Madi Callejas MD ED HPI GENERAL MEDICAL PROBLEM - General Chief Complaint: General Stated Complaint: BODY ACHES Time Seen by Provider: 08/28/19 11:57 Source of Information: Reports: Patient, RN, RN Notes Reviewed History Limitations: Reports: No Limitations - History of Present Illness INITIAL COMMENTS - FREE TEXT/NARRATIVE: Patient presents to ER via POV with complaint of being sick with cough, and fever. She states her body hurts, since yesterday. She is cold, but thinks she may he having on/off fevers. She rates her generalized body aches as 4/10, took Ibuprofen 400 mg at 0900. She also has a dry cough with occasional thick sputum production. She has not missed any dialysis in the past week. Onset: Gradual Duration: Getting Worse Location: Reports: Generalized Quality: Reports: Ache Severity: Moderate Improves with: Reports: None Worsens with: Reports: None Associated Symptoms: Reports: No Other Symptoms Generalized Pain Score (Numeric/FACES): 4 - Related Data Allergies Allergy/AdvReac Type Severity Reaction Status Date / Time codeine AdvReac Mild Stomach Uncoded 08/28/19 10:53 Upset Home Meds: Home Meds Calcium Acetate [Phoslo] 3 cap PO TIDM 12/01/13 [History] Ca Cmb No.1/Vit D3/B-6/FA/B12 [Vitamin D3 1,000 Unit] 1,000 unit PO DAILY [History] Calcium Carbonate [Calcium] 1,000 mg PO TIDMEALS 05/02/14 [History] Gabapentin [Neurontin] 300 mg PO DAILY 05/02/14 [History] Insulin Glarg,Human.Rec.Analog [Lantus] 3 units SUBCUT BEDTIME 05/02/14 [History ] Sertraline [Zoloft] 100 mg PO BEDTIME 05/02/14 [History] amLODIPine [Norvasc] 5 mg PO DAILY 05/02/14 [History] carvediloL [Carvedilol] 12.5 mg PO DAILY 05/02/14 [History] Insulin Lispro [HumaLOG] 1 unit SQ TIDAC 08/21/15 [History] Pantoprazole [Protonix] 40 mg PO DAILY 08/21/15 [History] Sodium Polystyrene Sulfonate [Kayexalate] 30 ml PO ASDIRECTED PRN 08/21/15 [ History] Isosorbide Mononitrate [Imdur] 60 mg PO DAILY 02/05/17 [History] Hydrocodone/Acetaminophen [Hydrocodon-Acetaminophen 5-325] 1 each PO TID [History] Past Medical History HEENT History: Reports: Other (See Below) Other HEENT History: Wears glasses- does not have them there Cardiovascular History: Reports: High Cholesterol, Hypertension Respiratory History: Reports: Other (See Below) Other Respiratory History: Hx of pneumonia with chest tube insertion 2013 Gastrointestinal History: Reports: Other (See Below) Other Gastrointestinal History: Hx C.diff in 2015 Genitourinary History: Reports: Dialysis Other Genitourinary History: Pt states that she does not void in between dialysis txs- Tues, Thurs, Sat are he rscheduled dialysis days 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: Musculoskeletal History: Reports: Amputation Other Musculoskeletal History: Amputation below right elbow, and below left knee , right 4th toe amputation Neurological History: Reports: None Other Neuro History: encephalopathy Psychiatric History: Reports: Anxiety Endocrine/Metabolic History: Reports: Diabetes, Type II, Vitamin D Deficiency Hematologic History: Reports: Anemia Immunologic History: Reports: None Oncologic (Cancer) History: Reports: None Dermatologic History: Reports: Other (See Below) Other Dermatologic History: hx of Cutaneous Porphyria - Infectious Disease History Infectious Disease History: Reports: C-Difficile, Chicken Pox - Past Surgical History HEENT Surgical History: Reports: Eye Surgery Neurological Surgical History: Reports: None Musculoskeletal Surgical History: Reports: Amputation Oncologic Surgical History: Reports: None Social & Family History - Family History Family Medical History: Noncontributory HEENT: Reports: None Cardiac: Reports: High Cholesterol, Hypertension, [place] Respiratory: Reports: Asthma GI: Reports: GERD : Reports: Dialysis, Renal Disease/Insufficiency OBGYN: Reports: None Musculoskeletal: Reports: Arthritis Neurological: Reports: Seizure Psychiatric: Reports: Anxiety Endocrine/Metabolic: Reports: Diabetes, Type I, Diabetes, type II Hematologic: Reports: None Immunologic: Reports: None Dermatologic: Reports: None Oncologic: Reports: None - Tobacco Use Smoking Status *Q: Current Every Day Smoker Years of Tobacco use: 32 Packs/Tins Daily: 1 Second Hand Smoke Exposure: No - Caffeine Use Caffeine Use: Reports: Coffee, Energy Drinks, Soda - Recreational Drug Use Recreational Drug Use: No - Living Situation & Occupation Living situation: Reports: Single, with Family Occupation: Disabled ED ROS GENERAL - Review of Systems Review Of Systems: Comprehensive ROS is negative, except as noted in HPI. ED EXAM, GENERAL - Physical Exam Exam: See Below Exam Limited By: No Limitations General Appearance: Alert, No Apparent Distress, Other (Chronically ill appearing) Nose: Normal Inspection, Normal Mucosa, No Blood Throat/Mouth: Normal Lips, Normal Voice, No Airway Compromise Head: Atraumatic, Normocephalic Neck: Normal Inspection Respiratory/Chest: No Respiratory Distress, No Accessory Muscle Use, Decreased Breath Sounds, Crackles, Rhonchi (Left). No: Rales, Wheezing, Stridor Cardiovascular: Regular Rate, Rhythm, Tachycardia GI/Abdominal: Normal Bowel Sounds, Soft, Non-Tender, No Distention. No: Guarding, Rigid, Rebound Back Exam: Normal Inspection Extremities: Other (Multiple chronic amputations) Neurological: Alert, Oriented, No Motor/Sensory Deficits Psychiatric: Depressed Mood, Flat Affect Course - Vital Signs Last Recorded V/S: Last Vital Signs Temp 100.6 F 08/28/19 10:45 Pulse 128 H 08/28/19 10:45 Resp 22 H 08/28/19 10:45 BP 110/65 08/28/19 10:45 Pulse Ox 98 08/28/19 10:45 - Orders/Labs/Meds Orders: Active Orders 24 hr Category Date Time Status Peripheral IV Care [RC] . DIRECTED Care 08/28/19 13:26 Active Chest 1V Frontal [CR] Stat Exams 08/28/19 12:47 Taken CULTURE BLOOD [BC] Stat Lab 08/28/19 13:00 Received CULTURE BLOOD [BC] Stat Lab 08/28/19 13:07 Received CULTURE STREP A CONFIRMATION [RM] Stat Lab 08/28/19 12:03 Results STREP SCRN A RAPID W CULT CONF [RM] Stat Lab 08/28/19 12:03 Results Levofloxacin/Dextrose 5%-Water [Levaquin in D5W 250 MG/ Med 08/28/19 13:26 Active 50 ML] 250 mg Premix Bag 1 bag IV ONETIME Sodium Chloride 0.9% [Saline Flush] Med 08/28/19 13:26 Active 10 ml FLUSH ASDIRECTED PRN Blood Culture x2 Reflex Set [OM.PC] Stat Oth 08/28/19 12:47 Ordered Peripheral IV Insertion Adult [OM.PC] Stat Oth 08/28/19 13:24 Ordered Medication Orders Levofloxacin/Dextrose 250 mg/ (Premix) 50 mls @ 50 mls/hr IV ONETIME ONE Stop: 08/28/19 14:25 Sodium Chloride (Saline Flush) 10 ml FLUSH ASDIRECTED PRN PRN Reason: Keep Vein Open Labs: Laboratory Tests 08/28/19 08/28/19 08/28/19 Range/Units 13:00 13:00 13:00 WBC 22.2 H (5.0-10.0) 10^3/uL RBC 3.08 L (4.2-5.4) 10^6/uL Hgb 9.3 L (12.0-16.0) g/dL Hct 29.4 L (37.0-47.0) % MCV 95.5 (80-100) fL MCH 30.2 (27.0-34.0) pg MCHC 31.6 L (33.0-35.0) g/dL Plt Count 247 (150-450) 10^3/uL Neut % (Auto) 91.6 H (42.2-75.2) % Lymph % (Auto) 2.1 L (20.5-50.1) % [place] % (Auto) 5.8 (2-8) % Eos % (Auto) 0.3 L (1.0-3.0) % Baso % (Auto) 0.2 (0.0-1.0) % Add Manual Diff Yes Neutrophils % (Manual) 88 H (42-75) % Band Neutrophils % 4 % Lymphocytes % (Manual) 4 L (20-50) % Monocytes % (Manual) 4 (2-8) % Sodium 128 L (135-145) mmol/L Potassium 5.2 H (3.6-5.0) mmol/L Chloride 93 L (101-111) mmol/L Carbon Dioxide 18.0 L (21.0-31.0) mmol/L Anion Gap 22.2 BUN 57 H D (7-18) mg/dL Creatinine 6.6 H D (0.6-1.3) mg/dL Est Cr Clr Drug Dosing TNP Estimated GFR (MDRD) 7 BUN/Creatinine Ratio 8.63 Glucose 183 H (74-105) mg/dL Lactic Acid 1.8 (0.5-2.0) mmol/L Calcium 7.6 L (8.4-10.2) mg/dl Phosphorus 7.0 H (2.5-4.6) mg/dL Magnesium 1.5 L (1.8-2.5) mg/dL Total Bilirubin 0.8 (0.2-1.0) mg/dL AST 15 (10-42) IU/L ALT 11 (10-60) IU/L Alkaline Phosphatase 117 (42-121) IU/L B-Natriuretic Peptide 1460 H (0-100) pg/ml Total Protein 8.5 H (6.7-8.2) g/dl Albumin 2.7 L (3.2-5.5) g/dl Globulin 5.8 Albumin/Globulin Ratio 0.47 Rapid strep: Negative. Influenza A and B: Negative. Meds: Medications Generic Name Dose Route Start Last Admin Trade Name Freq PRN Reason Stop Dose Admin Levofloxacin/Dextrose 250 mg/ 50 mls @ 50 mls/hr 08/28/19 13:26 Premix IV 08/28/19 14:25 ONETIME ONE Sodium Chloride 10 ml 08/28/19 13:26 Saline Flush FLUSH ASDIRECTED PRN Keep Vein Open - Radiology Interpretation Free Text/Narrative:: CXR: Infiltrate left lung consistent with pneumonia. See rad. report. Departure - Departure Time of Disposition: 13:56 Disposition: DC/Tfer to Acute Hospital 02 Condition: Serious Clinical Impression: End stage renal disease on dialysis Pneumonia Qualifiers: Pneumonia type: due to unspecified organism Laterality: left Lung location: unspecified part of lung Qualified Code(s): J18.9 - Pneumonia, unspecified organism Sepsis Qualifiers: Sepsis type: sepsis due to unspecified organism Sepsis acute organ dysfunction status: without acute organ dysfunction Qualified Code(s): A41.9 - Sepsis, unspecified organism - Discharge Information *PRESCRIPTION DRUG MONITORING PROGRAM REVIEWED*: Not Applicable *COPY OF PRESCRIPTION DRUG MONITORING REPORT IN PATIENT KAMRYN: Not Applicable Forms: ED Department Discharge, Interfacility Transfer EMTALA Sepsis Event Note - Evaluation Sepsis Screening Result: No Definite Risk - Focused Exam Vital Signs: Vital Signs Temp Pulse Resp BP Pulse Ox 08/28/19 10:45 100.6 F 128 H 22 H 110/65 98 Date Exam was Performed: 08/28/19 Time Exam was Performed: 13:51 - My Orders Last 24 Hours: My Active Orders 08/28/19 12:03 CULTURE STREP A CONFIRMATION [RM] Stat STREP SCRN A RAPID W CULT CONF [RM] Stat 08/28/19 12:47 Chest 1V Frontal [CR] Stat Blood Culture x2 Reflex Set [OM.PC] Stat 08/28/19 13:00 CULTURE BLOOD [BC] Stat 08/28/19 13:07 CULTURE BLOOD [BC] Stat 08/28/19 13:24 Peripheral IV Insertion Adult [OM.PC] Stat 08/28/19 13:26 Peripheral IV Care [RC] . DIRECTED Levofloxacin/Dextrose 5%-Water [Levaquin in D5W 250 MG/50 ML] 250 mg Premix Bag 1 bag IV ONETIME Sodium Chloride 0.9% [Saline Flush] 10 ml FLUSH ASDIRECTED PRN - Assessment/Plan Last 24 Hours: My Active Orders 08/28/19 12:03 CULTURE STREP A CONFIRMATION [RM] Stat STREP SCRN A RAPID W CULT CONF [RM] Stat 08/28/19 12:47 Chest 1V Frontal [CR] Stat Blood Culture x2 Reflex Set [OM.PC] Stat 08/28/19 13:00 CULTURE BLOOD [BC] Stat 08/28/19 13:07 CULTURE BLOOD [BC] Stat 08/28/19 13:24 Peripheral IV Insertion Adult [OM.PC] Stat 08/28/19 13:26 Peripheral IV Care [RC] . DIRECTED Levofloxacin/Dextrose 5%-Water [Levaquin in D5W 250 MG/50 ML] 250 mg Premix Bag 1 bag IV ONETIME Sodium Chloride 0.9% [Saline Flush] 10 ml FLUSH ASDIRECTED PRN I have read and agree with the documentation that has been completed regarding this visit. By signing this record, I attest that the documentation was completed in my physical presence and is an accurate record of the encounter.
== END 2019-08-28 15:10 ==
LOC: DL.ED 10:33
DX: A41.9 Sepsis, unspecified organism (principal); R65.20 Severe sepsis without septic shock; J18.9 Pneumonia, unspecified organism; I12.0 Hypertensive chronic kidney disease with stage 5 chronic kidney disease or end stage renal disease; N18.6 End stage renal disease; E11.22 Type 2 diabetes mellitus with diabetic chronic kidney disease; E78.00 Pure hypercholesterolemia, unspecified; F41.9 Anxiety disorder, unspecified; F17.210 Nicotine dependence, cigarettes, uncomplicated; Z99.2 Dependence on renal dialysis; Z88.5 Allergy status to narcotic agent; Z79.4 Long term (current) use of insulin; Z79.899 Other long term (current) drug therapy
CPT/HCPCS: 36415; 71045; 80053; 83605; 83735; 83880; 84100; 85025; 87040; 87081; 87430; 87804; 96365; 99284; J1956

== ENCOUNTER 2019-09-06 13:15 | Emergency (ER) | payer MEDICARE, MEDICAID ==
[2019-09-06 13:21] VITALS: BP 128/73
[2019-09-06 14:18] LABS: CHLORIDE,CL 98 mmol/L (101-111); SODIUM,NA 134 mmol/L (135-145)
--- NOTE | 2019-09-06 15:16 | EDM.PDOC ---
ED HPI GENERAL MEDICAL PROBLEM - General Chief Complaint: General Stated Complaint: AMBULANCE Time Seen by Provider: 09/06/19 13:30 Source of Information: Reports: Patient, EMS History Limitations: Reports: No Limitations - History of Present Illness INITIAL COMMENTS - FREE TEXT/NARRATIVE: This 43 yo female patient was brought to the ED by [facility] due to not feeling well. The patient is a dialysis patient that missed her dialysis on Thursday and Thursday (last dialysis was 08/31/19). The patient's speech was slurred throughout the examination making it difficult to assess her. Onset: Unknown/Unsure Duration: Constant Location: Reports: Generalized Quality: Reports: Other Severity: Severe Improves with: Reports: None Worsens with: Reports: None Context: Reports: Other Associated Symptoms: Reports: No Other Symptoms - Related Data Allergies Allergy/AdvReac Type Severity Reaction Status Date / Time codeine AdvReac Mild Stomach Uncoded 08/28/19 10:53 Upset Home Meds: Home Meds Calcium Acetate [Phoslo] 3 cap PO TIDM 12/01/13 [History] Ca Cmb No.1/Vit D3/B-6/FA/B12 [Vitamin D3 1,000 Unit] 1,000 unit PO DAILY [History] Calcium Carbonate [Calcium] 1,000 mg PO TIDMEALS 05/02/14 [History] Gabapentin [Neurontin] 300 mg PO DAILY 05/02/14 [History] Insulin Glarg,Human.Rec.Analog [Lantus] 3 units SUBCUT BEDTIME 05/02/14 [History ] Sertraline [Zoloft] 100 mg PO BEDTIME 05/02/14 [History] amLODIPine [Norvasc] 5 mg PO DAILY 05/02/14 [History] carvediloL [Carvedilol] 12.5 mg PO DAILY 05/02/14 [History] Insulin Lispro [HumaLOG] 1 unit SQ TIDAC 08/21/15 [History] Pantoprazole [Protonix] 40 mg PO DAILY 08/21/15 [History] Sodium Polystyrene Sulfonate [Kayexalate] 30 ml PO ASDIRECTED PRN 08/21/15 [ History] Isosorbide Mononitrate [Imdur] 60 mg PO DAILY 02/05/17 [History] Hydrocodone/Acetaminophen [Hydrocodon-Acetaminophen 5-325] 1 each PO TID [History] Past Medical History HEENT History: Reports: Other (See Below) Other HEENT History: Wears glasses- does not have them there Cardiovascular History: Reports: High Cholesterol, Hypertension Respiratory History: Reports: Other (See Below) Other Respiratory History: Hx of pneumonia with chest tube insertion 2013 Gastrointestinal History: Reports: Other (See Below) Other Gastrointestinal History: Hx C.diff in 2015 Genitourinary History: Reports: Dialysis Other Genitourinary History: Pt states that she does not void in between dialysis txs- Tues, Thurs, Sat are he rscheduled dialysis days 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: Musculoskeletal History: Reports: Amputation Other Musculoskeletal History: Amputation below right elbow, and below left knee , right 4th toe amputation Neurological History: Reports: None Other Neuro History: encephalopathy Psychiatric History: Reports: Anxiety Endocrine/Metabolic History: Reports: Diabetes, Type II, Vitamin D Deficiency Hematologic History: Reports: Anemia Immunologic History: Reports: None Oncologic (Cancer) History: Reports: None Dermatologic History: Reports: Other (See Below) Other Dermatologic History: hx of Cutaneous Porphyria - Infectious Disease History Infectious Disease History: Reports: C-Difficile, Chicken Pox - Past Surgical History HEENT Surgical History: Reports: Eye Surgery Neurological Surgical History: Reports: None Musculoskeletal Surgical History: Reports: Amputation Oncologic Surgical History: Reports: None Social & Family History - Family History Family Medical History: Noncontributory HEENT: Reports: None Cardiac: Reports: High Cholesterol, Hypertension, [place] Respiratory: Reports: Asthma GI: Reports: GERD : Reports: Dialysis, Renal Disease/Insufficiency OBGYN: Reports: None Musculoskeletal: Reports: Arthritis Neurological: Reports: Seizure Psychiatric: Reports: Anxiety Endocrine/Metabolic: Reports: Diabetes, Type I, Diabetes, type II Hematologic: Reports: None Immunologic: Reports: None Dermatologic: Reports: None Oncologic: Reports: None - Tobacco Use Smoking Status *Q: Current Every Day Smoker Years of Tobacco use: 27 Packs/Tins Daily: 0.5 - Caffeine Use Caffeine Use: Reports: Coffee, Soda, Tea - Recreational Drug Use Recreational Drug Use: No - Living Situation & Occupation Living situation: Reports: Single, with Family Occupation: Disabled ED ROS GENERAL - Review of Systems Review Of Systems: Comprehensive ROS is negative, except as noted in HPI. ED EXAM, GENERAL - Physical Exam Exam: See Below Exam Limited By: Altered Mental Status General Appearance: Alert, WD/WN, Moderate Distress Eye Exam: Bilateral Eye: Corneal Abrasion, Normal Inspection, PERRL Ears: Normal External Exam, Normal Canal, Hearing Grossly Normal, Normal TMs Nose: Normal Inspection, Normal Mucosa, No Blood Throat/Mouth: Normal Inspection, Normal Lips, Normal Teeth, Normal Gums, Normal Oropharynx, Normal Voice, No Airway Compromise Head: Atraumatic, Normocephalic Neck: Normal Inspection, Supple, Non-Tender, Full Range of Motion Respiratory/Chest: No Respiratory Distress, Lungs Clear, Normal Breath Sounds, No Accessory Muscle Use, Chest Non-Tender Cardiovascular: Normal Peripheral Pulses, Regular Rate, Rhythm, No Edema, No Gallop, No JVD, No Murmur, No Rub GI/Abdominal: Normal Bowel Sounds, Soft, Non-Tender, No Organomegaly, No Distention, No Abnormal Bruit, No Mass (Female) Exam: Deferred Rectal (Female) Exam: Deferred Back Exam: Normal Inspection, Full Range of Motion, NT Extremities: Other (multiple amputations) Neurological: Alert Psychiatric: Normal Affect, Normal Mood Skin Exam: Warm, Dry, Intact, Normal Color, No Rash Lymphatic: No Adenopathy Course - Vital Signs Last Recorded V/S: Last Vital Signs Temp 36.6 C 09/06/19 13:13 Pulse 106 H 09/06/19 13:13 Resp 18 09/06/19 13:13 BP 128/73 09/06/19 13:13 Pulse Ox 100 09/06/19 13:13 - Orders/Labs/Meds Orders: Active Orders 24 hr Category Date Time Status EKG 12 Lead [EKG Documentation Completion] [RC] STAT Care 09/06/19 15:05 Active RT Aerosol Therapy [RC] ASDIRECTED Care 09/06/19 15:13 Active URINALYSIS W/MICROSCOPIC [UA W/MICROSCOPIC] [URIN] Stat Lab 09/06/19 13:29 Ordered Labs: Laboratory Tests 09/06/19 09/06/19 09/06/19 Range/Units 13:50 13:50 13:50 WBC 9.2 (5.0-10.0) 10^3/uL RBC 3.51 L (4.2-5.4) 10^6/uL Hgb 10.5 L (12.0-16.0) g/dL Hct 33.6 L (37.0-47.0) % MCV 95.7 (80-100) fL MCH 29.9 (27.0-34.0) pg MCHC 31.3 L (33.0-35.0) g/dL Plt Count 260 (150-450) 10^3/uL Neut % (Auto) 94.1 H (42.2-75.2) % Lymph % (Auto) 2.9 L (20.5-50.1) % [place] % (Auto) 2.4 (2-8) % Eos % (Auto) 0.1 L (1.0-3.0) % Baso % (Auto) 0.5 (0.0-1.0) % Sodium 134 L (135-145) mmol/L Potassium 8.0 H* D (3.6-5.0) mmol/L Chloride 98 L (101-111) mmol/L Carbon Dioxide 14.0 L (21.0-31.0) mmol/L Anion Gap 30.0 BUN 120 H D (7-18) mg/dL Creatinine 10.0 H D (0.6-1.3) mg/dL Est Cr Clr Drug Dosing TNP Estimated GFR (MDRD) 4 BUN/Creatinine Ratio 12.00 Glucose 163 H (74-105) mg/dL Calcium 7.9 L (8.4-10.2) mg/dl Total Bilirubin 0.9 (0.2-1.0) mg/dL AST 29 (10-42) IU/L ALT 36 (10-60) IU/L Alkaline Phosphatase 225 H (42-121) IU/L Ammonia 31 (11-35) umol/L Total Protein 9.2 H (6.7-8.2) g/dl Albumin 3.2 (3.2-5.5) g/dl Globulin 6.0 Albumin/Globulin Ratio 0.53 Amylase 74 (28-100) U/L Lipase 39 (22-51) U/L Meds: Medications Discontinued Medications Generic Name Dose Route Start Last Admin Trade Name Freq PRN Reason Stop Dose Admin Albuterol 2.5 mg 09/06/19 15:13 Proventil Neb Soln NEB 09/06/19 15:14 ONETIME ONE Calcium Gluconate 1 gm 09/06/19 15:02 Calcium Gluconate IVPUSH 09/06/19 15:03 ONETIME ONE Dextrose/Water 50 ml 09/06/19 15:02 Dextrose 50% In Water IVPUSH 09/06/19 15:03 ONETIME ONE Insulin Human Regular 5 unit 09/06/19 15:03 Humulin R IV 09/06/19 15:04 TIDAC ONE Sodium Polystyrene Sulfonate 45 gm 09/06/19 15:02 Kayexalate PO 09/06/19 15:03 NOW ONE Departure - Departure Time of Disposition: 15:29 Disposition: DC/Tfer to [facility] 02 Condition: Poor Clinical Impression: Hyperkalemia, CKD (chronic kidney disease) stage 5, GFR less than 15 ml/min - Discharge Information Forms: Interfacility Transfer EMTALA Care Plan Goals: Discussed the patient's history, examination and lab results with Dr. Ojeda. Dr. Ojeda accepted the patient for continued evaluation and management at [facility] in [place]. The patient will be transported by [facility]. Sepsis Event Note - Evaluation Sepsis Screening Result: No Definite Risk - Focused Exam Vital Signs: Vital Signs Temp Pulse Resp BP Pulse Ox 09/06/19 13:13 36.6 C 106 H 18 128/73 100 Date Exam was Performed: 09/06/19 Time Exam was Performed: 15:27 - My Orders Last 24 Hours: My Active Orders 09/06/19 15:13 RT Aerosol Therapy [RC] ASDIRECTED - Assessment/Plan Last 24 Hours: My Active Orders 09/06/19 15:13 RT Aerosol Therapy [RC] ASDIRECTED
[2019-09-06] MEDS: Albuterol 0.083% 2.5 MG/3 ML Neb Soln NEB ONE (15:26)
[2019-09-06] MEDS: 50% Dextrose in Water 50 ML Syringe IVPUSH ONE (15:26)
[2019-09-06] MEDS: Insulin Regular, Human 100 Units/ML 3 ML Vial IV ONE (15:27)
[2019-09-06] MEDS: Calcium Gluconate 10% 1 GM/10 ML SDV IVPUSH ONE (15:28)
[2019-09-06] MEDS: Sodium Polystyrene Sulfonate 15 GM/60 ML Susp 60 ML Bot PO ONE (15:28)
[2019-09-06 16:13] VITALS: PULSE 114
== END 2019-09-06 15:57 ==
LOC: DL.ED 13:15
DX: E87.5 Hyperkalemia (principal); E11.22 Type 2 diabetes mellitus with diabetic chronic kidney disease; I12.0 Hypertensive chronic kidney disease with stage 5 chronic kidney disease or end stage renal disease; N18.6 End stage renal disease; F41.9 Anxiety disorder, unspecified; F17.210 Nicotine dependence, cigarettes, uncomplicated; Z88.5 Allergy status to narcotic agent; Z79.899 Other long term (current) drug therapy; Z79.4 Long term (current) use of insulin; Z99.2 Dependence on renal dialysis
CPT/HCPCS: 36415; 80053; 82140; 82150; 83690; 85025; 93005; 94640; 96374; 96375; 99284; 99285-25; A9270-GY; J0610; J1815-GY; J7613-GY

== ENCOUNTER 2019-10-17 13:55 | Emergency (ER) | payer MEDICARE, MEDICAID ==
[2019-10-17] MEDS ORDERED: Calcium Chloride 10% 1 GM/10 ML Syringe IV ONE (13:56)
[2019-10-17] MEDS ORDERED: Sodium Bicarbonate 8.4% 50 MEQ/50 ML SDV IV ONE (13:56)
[2019-10-17] MEDS ORDERED: Amiodarone 150 MG/3 ML SDV IV ONE (13:56)
[2019-10-17] MEDS ORDERED: EPINEPHrine 1:10,000 1 MG/10 ML Syringe IV ONE (13:56)
[2019-10-17 14:21] LABS: ANION GAP 25.6 mEq/L (7-13); CHLORIDE,CL 95 mmol/L (98-107); SODIUM,NA 134 mmol/L (136-145)
--- NOTE | 2019-10-17 15:28 | EDM.PDOC ---
ED HPI GENERAL MEDICAL PROBLEM - General Chief Complaint: CPR in Progress Stated Complaint: JAVY BARNARD Time Seen by Provider: 10/17/19 13:55 Source of Information: Reports: Family, Old Records, RN, RN Notes Reviewed History Limitations: Reports: Other (CPR in progress/unresponsive pt) - History of Present Illness INITIAL COMMENTS - FREE TEXT/NARRATIVE: Responded to [facility] in dialysis. Arrived to find CPR in progress. Shockable rhythm found on dialysis AED with one shock given. Pt progressed to PEA following the shock. CPR was continued. A total of 5mg Epi. 1mg IVP were given, Amiodarone 150mg IV bolus x1, Sodium Bicarb. 1 amp, and Ca++ Cl 1g IVP. Resuscitation efforts were deemed ineffective, and the decision to terminate was made by me with time of 1400HRS. See [facility] flow sheet for times and details. - Related Data Allergies Allergy/AdvReac Type Severity Reaction Status Date / Time codeine AdvReac Mild Stomach Uncoded 08/28/19 10:53 Upset Home Meds: Home Meds Calcium Acetate [Phoslo] 3 cap PO TIDM 12/01/13 [History] Ca Cmb No.1/Vit D3/B-6/FA/B12 [Vitamin D3 1,000 Unit] 1,000 unit PO DAILY [History] Calcium Carbonate [Calcium] 1,000 mg PO TIDMEALS 05/02/14 [History] Gabapentin [Neurontin] 300 mg PO DAILY 05/02/14 [History] Insulin Glarg,Human.Rec.Analog [Lantus] 3 units SUBCUT BEDTIME 05/02/14 [History ] Sertraline [Zoloft] 100 mg PO BEDTIME 05/02/14 [History] amLODIPine [Norvasc] 5 mg PO DAILY 05/02/14 [History] carvediloL [Carvedilol] 12.5 mg PO DAILY 05/02/14 [History] Insulin Lispro [HumaLOG] 1 unit SQ TIDAC 08/21/15 [History] Pantoprazole [Protonix] 40 mg PO DAILY 08/21/15 [History] Sodium Polystyrene Sulfonate [Kayexalate] 30 ml PO ASDIRECTED PRN 08/21/15 [ History] Isosorbide Mononitrate [Imdur] 60 mg PO DAILY 02/05/17 [History] Hydrocodone/Acetaminophen [Hydrocodon-Acetaminophen 5-325] 1 each PO TID [History] Past Medical History HEENT History: Reports: Other (See Below) Other HEENT History: Wears glasses- does not have them there Cardiovascular History: Reports: High Cholesterol, Hypertension Respiratory History: Reports: Other (See Below) Other Respiratory History: Hx of pneumonia with chest tube insertion 2013 Gastrointestinal History: Reports: Other (See Below) Other Gastrointestinal History: Hx C.diff in 2015 Genitourinary History: Reports: Dialysis Other Genitourinary History: Pt states that she does not void in between dialysis txs- Tues, Thurs, Sat are he rscheduled dialysis days 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: Musculoskeletal History: Reports: Amputation Other Musculoskeletal History: Amputation below right elbow, and below left knee , right 4th toe amputation Neurological History: Reports: None Other Neuro History: encephalopathy Psychiatric History: Reports: Anxiety Endocrine/Metabolic History: Reports: Diabetes, Type II, Vitamin D Deficiency Hematologic History: Reports: Anemia Immunologic History: Reports: None Oncologic (Cancer) History: Reports: None Dermatologic History: Reports: Other (See Below) Other Dermatologic History: hx of Cutaneous Porphyria - Infectious Disease History Infectious Disease History: Reports: C-Difficile, Chicken Pox - Past Surgical History HEENT Surgical History: Reports: Eye Surgery Neurological Surgical History: Reports: None Musculoskeletal Surgical History: Reports: Amputation Oncologic Surgical History: Reports: None Social & Family History - Family History Family Medical History: Noncontributory HEENT: Reports: None Cardiac: Reports: High Cholesterol, Hypertension, [place] Respiratory: Reports: Asthma GI: Reports: GERD : Reports: Dialysis, Renal Disease/Insufficiency OBGYN: Reports: None Musculoskeletal: Reports: Arthritis Neurological: Reports: Seizure Psychiatric: Reports: Anxiety Endocrine/Metabolic: Reports: Diabetes, Type I, Diabetes, type II Hematologic: Reports: None Immunologic: Reports: None Dermatologic: Reports: None Oncologic: Reports: None - Caffeine Use Caffeine Use: Reports: Coffee, Energy Drinks, Soda - Living Situation & Occupation Living situation: Reports: Single, with Family Occupation: Disabled ED ROS GENERAL - Review of Systems Review Of Systems: Unable To Obtain Reason Not Obtained: code blue ED EXAM, CPR - Physical Exam Exam: Not Obtained Course - Orders/Labs/Meds Labs: Laboratory Tests 10/17/19 10/17/19 Range/Units 13:51 13:51 WBC 10.7 H (5.0-10.0) 10^3/uL RBC 3.70 L (4.2-5.4) 10^6/uL Hgb 11.0 L (12.0-16.0) g/dL Hct 33.8 L (37.0-47.0) % MCV 91.4 D (80-100) fL MCH 29.7 (27.0-34.0) pg MCHC 32.5 L (33.0-35.0) g/dL Plt Count 240 (150-450) 10^3/uL Neut % (Auto) 66.1 (42.2-75.2) % Lymph % (Auto) 24.6 (20.5-50.1) % Alfalfa % (Auto) 6.8 (2-8) % Eos % (Auto) 2.1 (1.0-3.0) % Baso % (Auto) 0.4 (0.0-1.0) % Add Manual Diff Yes Neutrophils % (Manual) 60 (42-75) % Band Neutrophils % 2 % Lymphocytes % (Manual) 32 (20-50) % Monocytes % (Manual) 5 (2-8) % Myelocytes % 1 Sodium 134 L (136-145) mmol/L Potassium 4.6 (3.5-5.1) mmol/L Chloride 95 L (98-107) mmol/L Carbon Dioxide 18 L (21-32) mmol/L Anion Gap 25.6 H (7-13) mEq/L BUN 56 H (7-18) mg/dL Creatinine 5.33 H* (0.55-1.02) mg/dL Est Cr Clr Drug Dosing TNP Estimated GFR (MDRD) 9 BUN/Creatinine Ratio 10.5 (No establ ref range) Glucose 202 H (74-99) mg/dL Calcium 7.6 L (8.5-10.1) mg/dL Total Bilirubin 0.5 (0.2-1.0) mg/dL AST 35 (15-37) U/L ALT 27 (14-59) U/L Alkaline Phosphatase 146 H (46-116) U/L Troponin I 0.343 H* (0.000-0.056) ng/mL Total Protein 8.2 (6.4-8.2) g/dL Albumin 2.7 L (3.4-5.0) g/dL Globulin 5.5 Albumin/Globulin Ratio 0.49 Departure - Departure Time of Disposition: 14:00 Disposition: 20 Preliminary Cause of *Q: Cardiac Arrest Clinical Impression: Cardiac arrest - Discharge Information *PRESCRIPTION DRUG MONITORING PROGRAM REVIEWED*: Not Applicable *COPY OF PRESCRIPTION DRUG MONITORING REPORT IN PATIENT KAMRYN: Not Applicable Referrals: PCP,Unobtain [Primary Care Provider] -
== END 2019-10-17 15:21 | disposition expired ==
LOC: DL.ED 13:55
DX: I46.9 Cardiac arrest, cause unspecified (principal); E11.9 Type 2 diabetes mellitus without complications; Z79.4 Long term (current) use of insulin; I10 Essential (primary) hypertension; Z88.5 Allergy status to narcotic agent; Z79.899 Other long term (current) drug therapy
CPT/HCPCS: 36415; 80053; 84484; 85025; 99285; J0171; J0282; 92950